=== PATIENT | female | born 1980 | race Hispanic/Latino ===

== ENCOUNTER 2017-01-22 18:40 | Inpatient (IN) | payer MEDICARE, OTHER ==
[2017-01-22 18:50] VITALS: BMI 56.5
[2017-01-22] MEDS: Albuterol-Ipratrop 3 mg / 0.5 (3 ml) UD IH STA ×2 (19:20→19:24)
[2017-01-22] MEDS ORDERED: Levalbuterol 1.25 MG/3 ML Inhal Soln UD IH STA ×3 (19:22→20:58)
[2017-01-22 20:02] LABS: ADD MANUAL DIFF? YES; HEMATOCRIT 34.5 % (36.0-48.0); MEAN CELL VOLUME 76.8 fL (80.0-105.0); MEAN CORPUSCULAR HEMOGLOBIN 23.8 pg (25.0-35.0); MEAN PLATELET VOLUME 10.4 fl (7.0-11.0); PLATELET COUNT 344 10^3/uL (120.0-450.0); RED CELL DISTRIBUTION WIDTH 18.2 % (11.5-14.5); WHITE BLOOD COUNT 10.7 10^3/ul (4.5-11.0)
[2017-01-22 20:17] LABS: ALB/GLOB RATIO 1.2 (1.1-1.8); ALKALINE PHOSPHATASE 60 U/L (38-133); ALT/SGPT 48 U/L (7-56); AST/SGOT 58 U/L (15-39); BILIRUBIN,TOTAL 0.7 mg/dL (0.2-1.3); BLOOD UREA NITROGEN 8 mg/dL (7-21); CALCIUM 8.4 mg/dL (8.4-10.5); CARBON DIOXIDE 25 mmol/L (21-33); CHLORIDE 99 mmol/L (98-107); GFR AFRICAN-AMERICAN > 60; GLUCOSE,RANDOM 197 mg/dL (70-110); POTASSIUM 3.3 mmol/L (3.6-5.0); SODIUM 136 mmol/L (132-148); TOTAL PROTEIN 6.9 g/dL (5.8-8.3)
[2017-01-22 20:31] LABS: TROPONIN I < 0.01 ng/mL
[2017-01-22 20:47] LABS: BAND 4 % (0-2); NEUTROPHIL 56 % (50.0-70.0)
[2017-01-22 20:48] LABS: EOSINOPHIL 8 % (0.0-3.0); PLATELET ESTIMATE NORMAL (NORMAL)
--- NOTE | 2017-01-22 21:34 | ED PDOC ---
Arrival/HPI - General Chief Complaint: Shortness Of Breath Time Seen by Provider: 01/22/17 18:53 Historian: Patient - History of Present Illness Narrative History of Present Illness (Text): 01/22/17 21:27 36yo morbidly obese female with PMHx of COPD, asthma, PE, sleep apnea, myxoma , chronic back pain, BIBA for worsening SOB, cough and one week. Also reports right lower back pain. She is steroid dependent, reports history of hospital admission and intubation secondary to COPD. Denies fever, chills, sick contact, recent travel. Mother states she had chest CT last week at [facility] [place], presented the report that states she had RLL nodule. Past Medical History - Provider Review Nursing Documentation Reviewed: Yes - Infectious Disease Hx of Infectious Diseases: None - Tetanus Immunization Tetanus Immunization: Unknown - Cardiac Hx Cardiac Arrhythmia: Yes Hx Congestive Heart Failure: Yes Hx Pacemaker: No Hx Peripheral Edema: Yes Hx Peripheral Vascular Disease: Yes (DVT) Other/Comment: Infective endocarditis - Pulmonary Hx Asthma: Yes Hx Bronchitis: Yes Hx Chronic Obstructive Pulmonary Disease (COPD): Yes Hx Emphysema: Yes Hx Pneumonia: Yes Hx Respiratory Tract Infection: Yes Hx Sleep Apnea: Yes Other/Comment: Pulmonary embolism - Neurological Hx Dizziness: Yes Hx Migraine: Yes Hx Paralysis: No Hx Vertigo: Yes Other/Comment: Neuropathy - HEENT Hx Cataracts: Yes Hx Deafness: Yes Hx Glaucoma: Yes Other/Comment: parotid gland infection 2 ear sx's, sx for deviated septum - Renal Hx Renal Failure: Yes - Endocrine/Metabolic Hx Hyperthyroidism: Yes Hx Hypothyroidism: Yes Other/Comment: h/o DKA - Hematological/Oncological Hx Anemia: Yes Hx Blood Transfusions: Yes Hx Blood Transfusion Reaction: No Hx Shingles: Yes Other/Comment: 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 - Integumentary Hx Cellulitis: Yes (recurrent) Other/Comment: 2 open sores to abd, 2 open sores right let and 2 to left leg 2 open sores to right upper arm, open sore to upper back, surgical scar to mid lower back and left lower back,7cm x 2cm open surgical wound to left abd draining and packing - Musculoskeletal/Rheumatological Hx Arthritis: Yes Hx Back Pain: Yes Hx Degenerative Joint Disease: Yes Hx Falls: No Hx Osteoarthritis: Yes Hx Osteomyelitis: Yes Hx Osteoporosis: Yes Hx Unsteady Gait: Yes (uses walker and rollator) Other/Comment: h/o implanted spinal cord stimulator -- was taken out due to infection. Restless leg syndrome - Gastrointestinal Hx Gastroesophageal Reflux: Yes Hx Pancreatitis: Yes Other/Comment: Esophageal Motility Disorder. Diabetic Gastroparesis - Genitourinary/Gynecological Hx Incontinence: Yes Hx Reproductive Disorders: No Hx Urinary Tract Infection: Yes Other/Comment: pt report history of yeast infection - Psychiatric Hx Anxiety: Yes Hx Bipolar Disorder: No Hx Emotional Abuse: No Hx Hallucinations: No Hx Panic Disorder: No Hx Post Traumatic Stress Disorder: No Hx Psychosis: No Hx Physical Abuse: No Hx Schizophrenia: No Hx Sexual Abuse: No Hx Substance Use: No - Surgical History Hx Appendectomy: Yes Hx Cataract Extraction: Yes Hx Cholecystectomy: Yes Hx Dilation and Curettage: Yes Hx Eye Surgery: Yes Hx Hysterectomy: Yes Hx Orthopedic Surgery: Yes (arthroscopic) Hx Vascular Access Device: Yes (port placed and removed) - Anesthesia Hx Anesthesia: No Hx Anesthesia Reactions: No Hx Malignant Hyperthermia: No - Suicidal Assessment Feels Threatened In Home Enviroment: No Family/Social History - Physician Review Nursing Documentation Reviewed: Yes Family/Social History: Unknown Family HX Smoking Status: Unknown If Ever Smoked Hx Alcohol Use: No Hx Substance Use: No Hx Substance Use Treatment: No Allergies/Home Meds Allergies/Adverse Reactions: Allergies ketorolac tromethamine [From Toradol] Allergy (Verified 01/22/17 19:19) ANAPHYLAXIS levofloxacin [From Levaquin] Allergy (Verified 06/16/16 17:02) NAUSEA metformin Allergy (Verified 06/16/16 17:02) ANAPHYLAXIS dapagliflozin propanediol [From Farxiga] Adverse Reaction (Verified 06/16/16 17: 02) .high blood sugar Home Medications: Home Meds Medication Instructions Recorded Confirmed diaZEpam [Valium] 5 mg PO TID 05/24/16 01/22/17 Cyanocobalamin [Vitamin B12 1000 0 mcg INJ .WEEKLY 01/22/17 01/22/17 mcg/ml Inj] Cyclobenzaprine [Flexeril] 10 mg PO DAILY 01/22/17 01/22/17 HYDROmorphone [Dilaudid] 4 mg PO Q4 01/22/17 01/22/17 Insulin Aspart [Novolog Flexpen] 5 units SC TID 01/22/17 01/22/17 Insulin Detemir [Levemir] 20 units SC DAILY 01/22/17 01/22/17 Meclizine [Meclizine*] 25 mg PO Q8 PRN 01/22/17 01/22/17 MedroxyPROGESTERone [Provera] 10 mg PO DAILY 01/22/17 01/22/17 Pantoprazole [Protonix EC Tab] 40 mg PO DAILY 01/22/17 01/22/17 diltiaZEM [Cardizem] 60 mg PO Q8 01/22/17 01/22/17 Review of Systems - Physician Review All systems were reviewed & negative as marked: Yes - Review of Systems Constitutional: Normal Eyes: Normal ENT: Normal Respiratory: SOB, Cough. absent: Sputum, Wheezing Cardiovascular: Normal Gastrointestinal: Normal Genitourinary Female: Normal Musculoskeletal: Normal Skin: Normal Neurological: Normal Endocrine: Normal Hemo/Lymphatic: Normal Psychiatric: Normal Physical Exam Vital Signs Reviewed: Yes Vital Signs Temp Pulse Resp BP Pulse Ox 01/23/17 01:13 97.8 F 113 H 18 116/77 96 01/22/17 21:13 93 L 01/22/17 20:41 129 H 16 122/74 91 L 01/22/17 18:56 20 01/22/17 18:49 130 H 20 118/88 100 Temperature: Afebrile Blood Pressure: Normal Pulse: Tachycardic Respiratory Rate: Normal Appearance: Positive for: Well-Appearing, Non-Toxic, Comfortable, Other (In mild respiratory distress) Pain Distress: None Mental Status: Positive for: Alert and Oriented X 3 - Systems Exam Head: Present: Atraumatic, Normocephalic Pupils: Present: PERRL Extroacular Muscles: Present: EOMI Conjunctiva: Present: Normal Mouth: Present: Moist Mucous Membranes Neck: Present: Normal Range of Motion Respiratory/Chest: Present: Respiratory Distress (Mild), Accessory Muscle Use, Decreased Breath Sounds (Diffusely). No: Wheezes, Retracting, Rhonchi, Tachypneic Cardiovascular: Present: Regular Rate and Rhythm, Normal S1, S2. No: Murmurs Abdomen: Present: Normal Bowel Sounds. No: Tenderness, Distention, Peritoneal Signs Back: Present: Normal Inspection Upper Extremity: Present: Normal Inspection. No: Cyanosis, Edema Lower Extremity: Present: Normal Inspection. No: Edema Neurological: Present: GCS=15, CN II-XII Intact, Speech Normal Skin: Present: Warm, Dry, Normal Color. No: Rashes Psychiatric: Present: Alert, Oriented x 3, Normal Insight, Normal Concentration Medical Decision Making ED Course and Treatment: 01/23/17 01:43 Pt with history of multiple co morbidities presented secondary to the stated history. She was tachy on presentation with decreased BS diffusely. On re evaluation s/p medication she remained tachy and continue to complain of SOB. Lab was unremarkable and CXR was negative. EKG Sinus tachy with short TN. No ST changes. Pt will be admitted for COPD exacerbation. Result and plan was DW the pt and she agreed. Case was DW Dr. Barnes. PT was placed on OBS to Dr. Weiss's service. - Lab Interpretations Lab Results: 01/22/17 19:00 01/22/17 19:00 Lab Results 01/22/17 19:00: WBC 10.7, RBC 4.49, Hgb 10.7 L, Hct 34.5 L, MCV 76.8 L, MCH 23.8 L, MCHC 31.0, RDW 18.2 H, Plt Count 344, MPV 10.4, Neutrophils % (Manual) 56, Band Neutrophils % 4 H, Lymphocytes % (Manual) 17 L, Monocytes % (Manual) 15 H, Eosinophils % (Manual) 8 H, Platelet Evaluation Normal, Sodium 136, Potassium 3.3 L, Chloride 99, Carbon Dioxide 25, Anion Gap 15, BUN 8, Creatinine 0.4 L, Est GFR ( Amer) > 60, Est GFR (Non-Af Amer) > 60, Random Glucose 197 H, Calcium 8.4, Total Bilirubin 0.7, AST 58 H, ALT 48, Alkaline Phosphatase 60, Lactate Dehydrogenase 686, Total Creatine Kinase < 20 L , Troponin I < 0.01, NT-Pro-B Natriuret Pep 18.0, Total Protein 6.9, Albumin 3.7 , Globulin 3.2, Albumin/Globulin Ratio 1.2 - RAD Interpretation Radiology Orders: 01/22/17 18:54 CHEST PORTABLE [RAD] Stat - Medication Orders Current Medication Orders: Albuterol/Ipratropium (Duoneb 3 Mg/0.5 Mg (3 Ml) Ud) 3 ml IH [id number] VENESSA Albuterol/Ipratropium (Duoneb 3 Mg/0.5 Mg (3 Ml) Ud) 3 ml IH Q2H PRN PRN Reason: Shortness of Breath Diltiazem HCl (Cardizem) 60 mg PO Q8 VENESSA Duloxetine HCl (Cymbalta) 60 mg PO DAILY VENESSA Gabapentin (Neurontin) 300 mg PO TID VENESSA PRN Reason: Protocol Hydromorphone HCl (Dilaudid) 0.5 mg IVP Q4H PRN PRN Reason: Pain, severe (8-10) Last Admin: 01/23/17 01:22 Dose: 0.5 MG IVP Administration Document 01/23/17 01:22 [facility] (Rec: 01/23/17 01:22 [id number]) Charges for Administration # of IVP Administrations 1 Insulin Human Regular (Humulin R High) 0 units SC ACHS VENESSA PRN Reason: Protocol Levothyroxine Sodium (Synthroid) 25 mcg PO DAILY VENESSA Methylprednisolone (Solu-Medrol) 60 mg IVP Q12 VENESSA Montelukast Sodium (Singulair) 10 mg PO HS VENESSA Pantoprazole Sodium (Protonix Ec Tab) 40 mg PO DAILY VENESSA Rivaroxaban (Xarelto) 20 mg PO DAILY VENESSA PRN Reason: Protocol Roflumilast (Daliresp) 500 mcg PO DAILY VENESSA Ropinirole HCl (Requip) 1.5 mg PO BID VENESSA Valacyclovir HCl (Valtrex) 500 mg PO BID VENESSA PRN Reason: Protocol Discontinued Medications Acetaminophen (Tylenol 325mg Tab) 975 mg PO STAT STA Stop: 01/22/17 22:16 Last Admin: 01/22/17 22:29 Dose: Not Given Non-Admin Reason: Patient Refused Albuterol/Ipratropium (Duoneb 3 Mg/0.5 Mg (3 Ml) Ud) 3 ml IH STAT STA Stop: 01/22/17 18:59 Last Admin: 01/22/17 19:24 Dose: Insulin Human Regular (Humulin R) 8 units SC STAT STA Stop: 01/23/17 01:33 Levalbuterol HCl (Xopenex) 1.25 mg IH STAT STA Stop: 01/22/17 19:23 Last Admin: 01/22/17 19:34 Dose: 1.25 MG Levalbuterol HCl (Xopenex) 1.25 mg IH STAT STA Stop: 01/22/17 20:02 Last Admin: 01/22/17 20:09 Dose: 1.25 MG Levalbuterol HCl (Xopenex) 1.25 mg IH STAT STA Stop: 01/22/17 20:59 Last Admin: 01/22/17 21:14 Dose: 1.25 MG Methylprednisolone (Solu-Medrol) 125 mg IVP STAT STA Stop: 01/22/17 18:56 Last Admin: 01/22/17 19:19 Dose: 125 MG IVP Administration Document 01/22/17 19:19 (Rec: 01/22/17 19:19 [id number]) Charges for Administration # of IVP Administrations 1 Ondansetron HCl (Zofran Inj) 4 mg IVP STAT STA Stop: 01/22/17 22:16 Last Admin: 01/22/17 22:29 Dose: 4 MG IVP Administration Document 01/22/17 22:29 [email or web address] (Rec: 01/22/17 22:29 [email or web address] [id number]) Charges for Administration # of IVP Administrations 1 Potassium Chloride (K-Dur 20 Meq Er Tab) 40 meq PO STAT STA Stop: 01/22/17 23:28 Last Admin: 01/23/17 00:05 Dose: 40 MEQ Disposition/Present on Arrival - Present on Arrival Any Indicators Present on Arrival: No History of DVT/PE: Yes History of Uncontrolled Diabetes: No Urinary Catheter: No History of Decub. Ulcer: No History Surgical Site Infection Following: None - Disposition Have Diagnosis and Disposition been Completed?: Yes Diagnosis: COPD (chronic obstructive pulmonary disease), Obesity Disposition: HOSPITALIZED Disposition Time: 11:40 Patient Problems: Current Active Problems Problem Status Diagnosed Acute infective pharyngitis Acute Atypical syncope Acute Chest pain Acute Clostridium difficile infection Acute Head trauma Acute Shingles Acute Thrush Acute Weakness Acute Acute asthma Chronic COPD (chronic obstructive pulmonary disease) Chronic Gait difficulty Chronic Gastroparesis Chronic Obstructive sleep apnea Chronic DVT (deep venous thrombosis) Chronic Frequent falls Chronic Hypothyroid Chronic Restless leg Chronic Ataxia Resolved Cellulitis of trunk Resolved Leukocytosis Resolved Clostridial infection Ruled-out Condition: FAIR
[2017-01-22] MEDS ORDERED: Potassium Chloride 20 mEq ER Tab PO STA (23:27)
[2017-01-22] MEDS ORDERED: Albuterol-Ipratrop 3 mg / 0.5 (3 ml) UD IH PRN (23:47)
--- NOTE | 2017-01-23 00:09 | CP.PCM.HP ---
<Austin Gilbertwin - Last Filed: 01/23/17 20:24> History of Present Illness - History of Present Illness History of Present Illness: cc: Shortness of breath HPI: Patient is a 36yo female with extensive past medical history that presented to [facility] c/o shortness of breath for the past several weeks. Patient stated that within the last 2 days her shortness of breath has been very bad and her medications have only been minimally helpful. She states that she has been unable to sleep and is on home oxygen (3L). She also reported one episode of nausea/vomiting today as well as non-productive cough. She states that she had recently been to [facility] [place] for similar complaints. Patient denies sick contacts, fever, chills, chest pain, palpitations, abdominal pain, focal weakness, numbness, tingling. PMHx: steroid-dependent asthma, chronic sinusitis, GERD, DM2, gastroparesis, endocarditis, implanted spinal cord stimulator which has since been removed, b/ l cataract surgery, shingles, ARTHUR, bronchiectasis, esophageal motility disorder , osteoporosis, right atrial mass, recurrent cellulitis, DVT and PE s/p IVC filter placement, Jennifer's disease PSHx: IVC filter placement, spinal stimulator insertion and removal, B/l cataract surgery, nasal polypectomy x3, right knee meniscus repair, right tympanic membrane repair Allergies: metformin, levofloxacin, dapagliflozin, ketorolac Social Hx: Former smoker quit ~10yrs ago, denies alcohol and illicit drug use; Lives with her parents Family Hx: Mother: [place]; Father: A[place]m PMD: Dr. Lawson Present on Admission - Present on Admission Any Indicators Present on Admission: Yes History of DVT/PE: Yes Past Patient History - Infectious Disease Hx of Infectious Diseases: None - Tetanus Immunizations Tetanus Immunization: Unknown - Past Medical History & Family History Past Medical History?: Yes - Past Social History Smoking Status: Unknown If Ever Smoked - CARDIAC Hx Cardia Arrhythmia: Yes Hx Congestive Heart Failure: Yes Hx Pacemaker: No Hx Peripheral Edema: Yes Hx Peripheral Vascular Disease: Yes (DVT) Other/Comment: Infective endocarditis - PULMONARY Hx Asthma: Yes Hx Bronchitis: Yes Hx Chronic Obstructive Pulmonary Disease (COPD): Yes Hx Emphysema: Yes Hx Pneumonia: Yes Hx Respiratory Tract Infection: Yes Hx Sleep Apnea: Yes Other/Comment: Pulmonary embolism - NEUROLOGICAL Hx Dizziness: Yes Hx Migraine: Yes Hx Paralysis: No Hx Vertigo: Yes Other/Comment: Neuropathy - HEENT Hx Cataracts: Yes Hx Deafness: Yes Hx Glaucoma: Yes Other/Comment: parotid gland infection 2 ear sx's, sx for deviated septum - RENAL Hx Renal Failure: Yes - ENDOCRINE/METABOLIC Hx Hyperthyroidism: Yes Hx Hypothyroidism: Yes Other/Comment: h/o DKA - HEMATOLOGICAL/ONCOLOGICAL Hx Anemia: Yes Hx Blood Transfusions: Yes Hx Blood Transfusion Reaction: No Hx Shingles: Yes Other/Comment: 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 - INTEGUMENTARY Hx Cellulitis: Yes (recurrent) Other/Comment: 2 open sores to abd, 2 open sores right let and 2 to left leg 2 open sores to right upper arm, open sore to upper back, surgical scar to mid lower back and left lower back,7cm x 2cm open surgical wound to left abd draining and packing - MUSCULOSKELETAL/RHEUMATOLOGICAL Hx Arthritis: Yes Hx Back Pain: Yes Hx Degenerative Joint Disease: Yes Hx Falls: No Hx Osteoarthritis: Yes Hx Osteomyelitis: Yes Hx Osteoporosis: Yes Hx Unsteady Gait: Yes (uses walker and rollator) Other/Comment: h/o implanted spinal cord stimulator -- was taken out due to infection. Restless leg syndrome - GASTROINTESTINAL Hx Gastroesophageal Reflux: Yes Hx Pancreatitis: Yes Other/Comment: Esophageal Motility Disorder. Diabetic Gastroparesis - GENITOURINARY/GYNECOLOGICAL Hx Incontinence: Yes Hx Reproductive Disorders: No Hx Urinary Tract Infection: Yes Other/Comment: pt report history of yeast infection - PSYCHIATRIC Hx Anxiety: Yes Hx Bipolar Disorder: No Hx Emotional Abuse: No Hx Hallucinations: No Hx Panic Symptoms: No Hx Post Traumatic Stress Disorder: No Hx Psychosis: No Hx Physical Abuse: No Hx Schizophrenia: No Hx Sexual Abuse: No Hx Substance Use: No - SURGICAL HISTORY Hx Appendectomy: Yes Hx Cataract Extraction: Yes Hx Cholecystectomy: Yes Hx Dilation and Curettage: Yes Hx Eye Surgery: Yes Hx Hysterectomy: Yes Hx Orthopedic Surgery: Yes (arthroscopic) Hx Vascular Access Device: Yes (port placed and removed) - ANESTHESIA Hx Anesthesia: No Hx Anesthesia Reactions: No Hx Malignant Hyperthermia: No Meds Allergies/Adverse Reactions: Allergies Allergy/AdvReac Type Severity Reaction Status Date / Time ketorolac tromethamine Allergy ANAPHYLAXIS Verified 01/22/17 19:19 [From Toradol] levofloxacin [From Levaquin] Allergy NAUSEA Verified 06/16/16 17:02 metformin Allergy ANAPHYLAXIS Verified 06/16/16 17:02 dapagliflozin propanediol AdvReac .high Verified 06/16/16 17:02 [From Farxiga] blood sugar Physical Exam - Constitutional Appears: Non-toxic, No Acute Distress - Head Exam Head Exam: ATRAUMATIC, NORMAL INSPECTION, NORMOCEPHALIC - Eye Exam Eye Exam: EOMI, PERRL - ENT Exam ENT Exam: Mucous Membranes Moist - Neck Exam Neck exam: Positive for: Normal Inspection. Negative for: Lymphadenopathy, Tenderness, Thyromegaly - Respiratory Exam Respiratory Exam: Decreased Breath Sounds, NORMAL BREATHING PATTERN. absent: Accessory Muscle Use, Rales, Rhonchi, Wheezes - Cardiovascular Exam Cardiovascular Exam: RRR, +S1, +S2. absent: Diastolic murmur, Gallop, Rubs - GI/Abdominal Exam GI & Abdominal Exam: Soft. absent: Firm, Guarding, Rebound, Rigid, Tenderness - Extremities Exam Extremities exam: Negative for: pedal edema, tenderness Additional comments: onychomycosis - Back Exam Additional comments: buffalo hump surgical scars - Neurological Exam Neurological exam: Alert, CN II-XII Intact, Oriented x3 - Psychiatric Exam Psychiatric exam: Normal Affect, Normal Mood - Skin Skin Exam: Dry, Intact, Normal Color, Warm Results - Vital Signs Recent Vital Signs: Last Vital Signs Temp Pulse 129 H 01/22/17 20:41 Resp 16 01/22/17 20:41 BP 122/74 01/22/17 20:41 Pulse Ox 93 L 01/22/17 21:13 - Labs Result Diagrams: 01/22/17 19:00 01/22/17 19:00 Labs: Laboratory Results - last 24 hr 01/22/17 19:00 WBC 10.7 RBC 4.49 Hgb 10.7 L Hct 34.5 L MCV 76.8 L MCH 23.8 L MCHC 31.0 RDW 18.2 H Plt Count 344 MPV 10.4 Neutrophils % (Manual) 56 Band Neutrophils % 4 H Lymphocytes % (Manual) 17 L Monocytes % (Manual) 15 H Eosinophils % (Manual) 8 H Platelet Evaluation Normal Sodium 136 Potassium 3.3 L Chloride 99 Carbon Dioxide 25 Anion Gap 15 BUN 8 Creatinine 0.4 L Est GFR ( Amer) > 60 Est GFR (Non-Af Amer) > 60 Random Glucose 197 H Calcium 8.4 Total Bilirubin 0.7 AST 58 H ALT 48 Alkaline Phosphatase 60 Lactate Dehydrogenase 686 Total Creatine Kinase < 20 L Troponin I < 0.01 NT-Pro-B Natriuret Pep 18.0 Total Protein 6.9 Albumin 3.7 Globulin 3.2 Albumin/Globulin Ratio 1.2 Assessment & Plan - Assessment and Plan (Free Text) Assessment: 36yo female with extensive past medical history and multiple hospitalizations presents c/o shortness of breath x 2 days likely secondary to COPD exacerbation. Plan: 1. Shortness of breath likely 2/2 COPD Exacerbation -Duonebs q4h vicki -Duonebs q2h prn -Solumedrol 60 mg IV q12h -Supplemental O2 as needed -Continue singulair and daliresp 2. Hx of endocarditis/right atrial mass -Patient previously on daptomycin -ID consulted - Dr. Vera 3. History of DVT/PE -Continue Xarelto 20 mg po qd Cardizem 30 mg po tid for rate control 4. Diabetes Mellitus type 2 -Humulin high dose ISS -Fingersticks ACHS -low consistent carb diet 5. Hypothyroidism -Continue Synthroid 25 mcg po qd 6. Hx of Shingles -Continue Valacyclovir 500 mg po bid 7. Restless Leg Syndrome -Continue Ropinirole 1.5 mg po bid 8. GI/DVT Prophylaxis -Protonix/Xarelto Patient seen and case discussed with attending, Dr. Barnes - Date & Time Date: 01/23/17 Time: 00:20 <Stewart Barnes - Last Filed: 01/24/17 02:30> Results - Vital Signs Recent Vital Signs: Last Vital Signs Temp 97.7 F 01/23/17 16:00 Pulse 120 H 01/23/17 16:00 Resp 18 01/23/17 16:00 BP 140/70 01/23/17 22:15 Pulse Ox 96 01/23/17 16:00 - Labs Result Diagrams: 01/23/17 05:00 01/23/17 05:00 Labs: Laboratory Results - last 24 hr 01/23/17 01/23/17 01/23/17 01:12 05:00 07:07 WBC 14.4 H D RBC 4.66 Hgb 10.9 L Hct 35.8 L MCV 76.8 L MCH 23.4 L MCHC 30.4 L RDW 18.1 H Plt Count 339 MPV 10.1 Gran % 91.8 H Lymph % (Auto) 4.5 L Rich % (Auto) 3.3 Eos % (Auto) 0.1 L Baso % (Auto) 0.3 Gran # 13.20 H Lymph # 0.7 L Rich # 0.5 Eos # 0.0 Baso # 0.05 Sodium 133 Potassium 4.6 Chloride 100 Carbon Dioxide 20 L Anion Gap 18 BUN 13 Creatinine 0.5 Est GFR ( Amer) > 60 Est GFR (Non-Af Amer) > 60 POC Glucose (mg/dL) 392 H 354 H Random Glucose 328 H* D Calcium 9.3 Total Bilirubin 0.6 AST 47 H ALT 63 H Alkaline Phosphatase 66 Total Protein 7.2 Albumin 3.9 Globulin 3.3 Albumin/Globulin Ratio 1.2 01/23/17 01/23/17 01/23/17 11:29 15:51 15:59 WBC RBC Hgb Hct MCV MCH MCHC RDW Plt Count MPV Gran % Lymph % (Auto) Rich % (Auto) Eos % (Auto) Baso % (Auto) Gran # Lymph # Rich # Eos # Baso # Sodium Potassium Chloride Carbon Dioxide Anion Gap BUN Creatinine Est GFR ( Amer) Est GFR (Non-Af Amer) POC Glucose (mg/dL) 390 H 394 H 210 H Random Glucose Calcium Total Bilirubin AST ALT Alkaline Phosphatase Total Protein Albumin Globulin Albumin/Globulin Ratio 01/23/17 21:07 WBC RBC Hgb Hct MCV MCH MCHC RDW Plt Count MPV Gran % Lymph % (Auto) Rich % (Auto) Eos % (Auto) Baso % (Auto) Gran # Lymph # Rich # Eos # Baso # Sodium Potassium Chloride Carbon Dioxide Anion Gap BUN Creatinine Est GFR ( Amer) Est GFR (Non-Af Amer) POC Glucose (mg/dL) 322 H Random Glucose Calcium Total Bilirubin AST ALT Alkaline Phosphatase Total Protein Albumin Globulin Albumin/Globulin Ratio Attending/Attestation - Attestation I have personally seen and examined this patient.: Yes I have fully participated in the care of the patient.: Yes I have reviewed all pertinent clinical information: Yes Notes (Text): 01/24/17 02:29 Patient was seen when she was in the ER . Agree with history, physical examination , assessment and plan.
[2017-01-23 00:26] LABS: URINE BILIRUBIN NEGATIVE (NEGATIVE); URINE BLOOD TRACE-INTACT (NEGATIVE); URINE GLUCOSE (UA) 500 mg/dL (NEGATIVE); URINE KETONE NEGATIVE (NEGATIVE); URINE LEUKOCYTE ESTERASE NEGATIVE Leu/uL (NEGATIVE); URINE PROTEIN 100 mg/dL (<30 mg/dL); URINE UROBILINOGEN 0.2 E.U./dL (<1 E.U./dL)
[2017-01-23 00:38] LABS: URINE APPEARANCE SLIGHT-CLOUDY (CLEAR); URINE COLOR YELLOW (YELLOW)
[2017-01-23 00:46] LABS: URINE BACTERIA FEW (NEG); URINE EPITHELIAL CELLS 0 - 2 /hpf (0-5)
[2017-01-23] MEDS: HYDROmorphone 0.5 mg/0.5 ml ISec IVP PRN ×4 (01:22→14:30)
[2017-01-23] MEDS ORDERED: Insulin Regular 1 UNITS/0.01 ML ML SC STA (01:32)
[2017-01-23] MEDS: Albuterol-Ipratrop 3 mg / 0.5 (3 ml) UD IH SCH ×5 (03:47→20:58)
--- NOTE | 2017-01-23 07:50 | RAD ---
HISTORY: SOB COMPARISON: Chest x-ray performed 11/22/16 TECHNIQUE: Chest, one view. FINDINGS: The patient's chin obscures evaluation of the lung apices. Interval removal of right-sided PICC. LUNGS: No focal consolidation. Please note that chest x-ray has limited sensitivity for the detection of pulmonary masses. PLEURA: No significant pleural effusion identified. No definite pneumothorax . CARDIOVASCULAR: The cardiomediastinal silhouette appears within normal limits of size. OSSEOUS STRUCTURES: No acute osseous abnormality identified. VISUALIZED UPPER ABDOMEN: Unremarkable. OTHER FINDINGS: None. IMPRESSION: No focal consolidation, significant pleural effusion, or definite pneumothorax identified.
[2017-01-23 08:17] LABS: ADD MANUAL DIFF? NO; BASO # 0.05 K/mm3 (0.0-2.0); BASO % 0.3 % (0.0-3.0); EOS % 0.1 % (1.5-5.0); GRAN % 91.8 % (50.0-68.0); HEMATOCRIT 35.8 % (36.0-48.0); LYMPH # 0.7 (1.2-3.4); LYMPH % 4.5 % (22.0-35.0); MEAN CELL VOLUME 76.8 fL (80.0-105.0); MEAN CORPUSCULAR HEMOGLOBIN 23.4 pg (25.0-35.0); MEAN CORPUSCULAR HGB CONC 30.4 g/dl (31.0-37.0); MEAN PLATELET VOLUME 10.1 fl (7.0-11.0); MONO # 0.5 (0.1-0.6); MONO % 3.3 % (1.0-6.0); PLATELET COUNT 339 10^3/uL (120.0-450.0); RED CELL DISTRIBUTION WIDTH 18.1 % (11.5-14.5); WHITE BLOOD COUNT 14.4 10^3/ul (4.5-11.0)
[2017-01-23] MEDS: Insulin Reg-HIGH-Coverage SC SCH ×4 (08:28→23:49)
[2017-01-23 08:36] LABS: ALB/GLOB RATIO 1.2 (1.1-1.8); ALKALINE PHOSPHATASE 66 U/L (38-133); ALT/SGPT 63 U/L (7-56); AST/SGOT 47 U/L (15-39); BILIRUBIN,TOTAL 0.6 mg/dL (0.2-1.3); BLOOD UREA NITROGEN 13 mg/dL (7-21); CALCIUM 9.3 mg/dL (8.4-10.5); CARBON DIOXIDE 20 mmol/L (21-33); CHLORIDE 100 mmol/L (98-107); GFR AFRICAN-AMERICAN > 60; POTASSIUM 4.6 mmol/L (3.6-5.0); SODIUM 133 mmol/L (132-148); TOTAL PROTEIN 7.2 g/dL (5.8-8.3)
[2017-01-23 08:40] LABS: GLUCOSE,RANDOM 328 mg/dL (70-110)
[2017-01-23] MEDS: Levothyroxine 25 MCG TAB PO SCH (10:10)
[2017-01-23] MEDS: Pantoprazole 40 mg EC Tab PO SCH (10:10)
[2017-01-23] MEDS ORDERED: Insulin Detemir 100 units/ml Vial (Levemir) SC SCH ×3 (13:30→14:35)
[2017-01-23] MEDS: HYDROmorphone 1 mg/ml ISec IVP PRN ×2 (16:50→22:16)
--- NOTE | 2017-01-23 16:50 | CARD ---
APPROVED REPORT EKG Measurement Heart [id number] 104P [id number] <Conclusion> Sinus tachycardia with short VA Low voltage QRS Cannot rule out Anteroseptal infarct, age undetermined Abnormal ECG
--- NOTE | 2017-01-23 17:28 | CP.PCM.CON ---
History of Present Illness - History of Present Illness History of Present Illness: Infectious Disease Consultation: January 23, 2017 36 yo female with multiple hospitalizations to both [facility] [place] [facility] [place] over the past few years who presents with worsening shortness of breath and cough for one week. Recent Chest CT done at [facility] [place]. Her home medications have not improved her situation. Patient mother states that the CT Chest at [facility] showed a RLL nodule. PMHx: Esophageal dysmotility, hypertension, diabetes mellitus, obstructive sleep apnea , chronic sinusitis, restless leg syndrome, chronic pain syndrome, persistent skin ulceration with infection, morbid obesity, steroid dependent respiratory disease, COPD, degenerative joint disease, chronic back pain, hypothyroidism, DVT, history of pulmonary embolism, chronic fatigue. Has memory lapses since last hospitalization. PSHx: IVC filter placement, multiple PICC lines, prior port placement and then renewal , spinal stimulator placement 16 months ago removed over 4 months ago due to infection, tonsillectomy, nasal polypectomy, right ear surgery. Allergies: Levaquin, morphine, metformin Social History: No tobacco, EtOH, or illicit drug use. Lives with parents. Active Medications Albuterol/Ipratropium (Duoneb 3 Mg/0.5 Mg (3 Ml) Ud) 3 ml IH [id number] [facility] Last Admin: 01/23/17 14:30 Dose: 3 ml Albuterol/Ipratropium (Duoneb 3 Mg/0.5 Mg (3 Ml) Ud) 3 ml IH Q2H PRN PRN Reason: Shortness of Breath Diazepam (Valium) 5 mg PO TID [facility] PRN Reason: Protocol Diltiazem HCl (Cardizem) 30 mg PO Q8 [facility] Duloxetine HCl (Cymbalta) 60 mg PO DAILY [facility] Last Admin: 01/23/17 10:10 Dose: 60 mg Gabapentin (Neurontin) 300 mg PO TID [facility] PRN Reason: Protocol Last Admin: 01/23/17 14:22 Dose: 300 mg Hydromorphone HCl (Dilaudid) 1 mg IVP Q4H PRN PRN Reason: Pain, moderate (4-7) Insulin Detemir (Levemir) 20 unit SC DAILY [facility] Insulin Human Regular (Humulin R High) 0 units SC ACHS [facility] PRN Reason: Protocol Last Admin: 01/23/17 12:33 Dose: 12 units Levothyroxine Sodium (Synthroid) 25 mcg PO DAILY [facility] Last Admin: 01/23/17 10:10 Dose: 25 mcg Meclizine HCl (Antivert) 25 mg PO Q8 PRN PRN Reason: Dizziness Medroxyprogesterone Acetate (Provera) 10 mg PO DAILY [facility] Methylprednisolone (Solu-Medrol) 60 mg IVP Q12 [facility] Last Admin: 01/23/17 10:08 Dose: 60 mg Montelukast Sodium (Singulair) 10 mg PO HS [facility] Pantoprazole Sodium (Protonix Ec Tab) 40 mg PO DAILY [facility] Last Admin: 01/23/17 10:10 Dose: 40 mg Rivaroxaban (Xarelto) 20 mg PO DAILY [facility] PRN Reason: Protocol Last Admin: 01/23/17 10:10 Dose: 20 mg Roflumilast (Daliresp) 500 mcg PO DAILY [facility] Last Admin: 01/23/17 10:10 Dose: 500 mcg Ropinirole HCl (Requip) 1.5 mg PO BID [facility] Last Admin: 01/23/17 10:11 Dose: 1.5 mg Valacyclovir HCl (Valtrex) 500 mg PO BID [facility] PRN Reason: Protocol Last Admin: 01/23/17 10:10 Dose: 500 mg Family History: Atrial fibrillation in mother. Hypertension in mother. Aneurysm history in family ROS: Chest pain and generalized sharp pains. No diarrhea. No headaches. No dizziness. No vomiting. No melena, hematuria, hematemesis, or hematochezia. No fevers or chills. No depression or anxiety. Past Patient History - Infectious Disease Hx of Infectious Diseases: None - Tetanus Immunizations Tetanus Immunization: Unknown - Past Medical History & Family History Past Medical History?: Yes - Past Social History Smoking Status: Former Smoker - CARDIAC Hx Cardiac Disorders: Yes Hx Cardia Arrhythmia: Yes Hx Congestive Heart Failure: Yes Hx Hypercholesterolemia: Yes Hx Hypertension: Yes Hx Peripheral Edema: Yes Hx Peripheral Vascular Disease: Yes (dvt) - PULMONARY Hx Respiratory Disorders: Yes Hx Asthma: Yes Hx Bronchitis: Yes Hx Chronic Obstructive Pulmonary Disease (COPD): Yes Hx Emphysema: Yes Hx Pneumonia: Yes Hx Sleep Apnea: Yes - NEUROLOGICAL Hx Neurological Disorder: Yes Hx Dizziness: Yes Hx Migraine: Yes - HEENT Hx HEENT Problems: Yes Hx Cataracts: Yes Hx Deafness: Yes Hx Glaucoma: Yes - RENAL Hx Chronic Kidney Disease: Yes Hx Renal Failure: Yes - ENDOCRINE/METABOLIC Hx Endocrine Disorders: Yes Hx Diabetes Mellitus Type 1: Yes Hx Diabetes Mellitus Type 2: Yes Hx Hyperthyroidism: Yes Hx Hypothyroidism: Yes - HEMATOLOGICAL/ONCOLOGICAL Hx Blood Disorders: Yes Hx Anemia: Yes Hx Shingles: Yes - INTEGUMENTARY Hx Dermatological Problems: No - MUSCULOSKELETAL/RHEUMATOLOGICAL Hx Musculoskeletal Disorders: Yes Hx Arthritis: Yes Hx Back Pain: Yes Hx Degenerative Joint Disease: Yes Hx Falls: No Hx Osteoarthritis: Yes Hx Osteoporosis: Yes Hx Unsteady Gait: Yes - GASTROINTESTINAL Hx Gastrointestinal Disorders: Yes Hx Pancreatitis: Yes - GENITOURINARY/GYNECOLOGICAL Hx Genitourinary Disorders: Yes Hx Urinary Tract Infection: Yes - PSYCHIATRIC Hx Psychophysiologic Disorder: Yes Hx Anxiety: Yes Hx Depression: Yes - SURGICAL HISTORY Hx Surgeries: Yes Hx Appendectomy: Yes Hx Cholecystectomy: Yes Other/Comment: back surgery - ANESTHESIA Hx Anesthesia: No Hx Anesthesia Reactions: No Hx Malignant Hyperthermia: No Meds Allergies/Adverse Reactions: Allergies Allergy/AdvReac Type Severity Reaction Status Date / Time ketorolac tromethamine Allergy ANAPHYLAXIS Verified 01/22/17 19:19 [From Toradol] levofloxacin [From Levaquin] Allergy NAUSEA Verified 06/16/16 17:02 metformin Allergy ANAPHYLAXIS Verified 06/16/16 17:02 dapagliflozin propanediol AdvReac .high Verified 06/16/16 17:02 [From Farxiga] blood sugar - Medications Medications: Current Medications Albuterol/Ipratropium (Duoneb 3 Mg/0.5 Mg (3 Ml) Ud) 3 ml IH [id number] [facility] Last Admin: 01/23/17 14:30 Dose: 3 ml Albuterol/Ipratropium (Duoneb 3 Mg/0.5 Mg (3 Ml) Ud) 3 ml IH Q2H PRN PRN Reason: Shortness of Breath Diazepam (Valium) 5 mg PO TID [facility] PRN Reason: Protocol Diltiazem HCl (Cardizem) 30 mg PO Q8 [facility] Duloxetine HCl (Cymbalta) 60 mg PO DAILY [facility] Last Admin: 01/23/17 10:10 Dose: 60 mg Gabapentin (Neurontin) 300 mg PO TID [facility] PRN Reason: Protocol Last Admin: 01/23/17 14:22 Dose: 300 mg Hydromorphone HCl (Dilaudid) 1 mg IVP Q4H PRN PRN Reason: Pain, moderate (4-7) Insulin Detemir (Levemir) 20 unit SC DAILY [facility] Insulin Human Regular (Humulin R High) 0 units SC ACHS [facility] PRN Reason: Protocol Last Admin: 01/23/17 12:33 Dose: 12 units Levothyroxine Sodium (Synthroid) 25 mcg PO DAILY [facility] Last Admin: 01/23/17 10:10 Dose: 25 mcg Meclizine HCl (Antivert) 25 mg PO Q8 PRN PRN Reason: Dizziness Medroxyprogesterone Acetate (Provera) 10 mg PO DAILY [facility] Methylprednisolone (Solu-Medrol) 60 mg IVP Q12 [facility] Last Admin: 01/23/17 10:08 Dose: 60 mg Montelukast Sodium (Singulair) 10 mg PO HS [facility] Pantoprazole Sodium (Protonix Ec Tab) 40 mg PO DAILY [facility] Last Admin: 01/23/17 10:10 Dose: 40 mg Rivaroxaban (Xarelto) 20 mg PO DAILY [facility] PRN Reason: Protocol Last Admin: 01/23/17 10:10 Dose: 20 mg Roflumilast (Daliresp) 500 mcg PO DAILY [facility] Last Admin: 01/23/17 10:10 Dose: 500 mcg Ropinirole HCl (Requip) 1.5 mg PO BID [facility] Last Admin: 01/23/17 10:11 Dose: 1.5 mg Valacyclovir HCl (Valtrex) 500 mg PO BID [facility] PRN Reason: Protocol Last Admin: 01/23/17 10:10 Dose: 500 mg Physical Exam - Constitutional Appears: Non-toxic, No Acute Distress, Chronically Ill - Head Exam Head Exam: ATRAUMATIC, NORMOCEPHALIC - Eye Exam Eye Exam: EOMI, PERRL Pupil Exam: NORMAL ACCOMODATION, PERRL - ENT Exam ENT Exam: Mucous Membranes Moist, Normal External Ear Exam, TM's Normal Bilaterally - Neck Exam Neck exam: Positive for: Full Rom, Normal Inspection - Respiratory Exam Respiratory Exam: Decreased Breath Sounds, NORMAL BREATHING PATTERN. absent: Rales, Rhonchi, Wheezes - Cardiovascular Exam Cardiovascular Exam: REGULAR RHYTHM, RRR, +S1, +S2 - GI/Abdominal Exam GI & Abdominal Exam: Normal Bowel Sounds, Soft. absent: Distended, Tenderness - Extremities Exam Additional comments: multiple scabs on arms and legs. - Back Exam Additional comments: buffalo hump - Neurological Exam Neurological exam: Alert, CN II-XII Intact, Oriented x3 - Psychiatric Exam Psychiatric exam: Normal Affect, Normal Mood - Skin Skin Exam: Intact, Normal Color Results - Vital Signs Recent Vital Signs: Last Vital Signs Temp 98 F 01/23/17 08:00 Pulse 110 H 01/23/17 08:00 Resp 18 01/23/17 08:00 BP 166/80 H 01/23/17 14:23 Pulse Ox 96 01/23/17 08:00 - Labs Result Diagrams: 01/23/17 05:00 01/23/17 05:00 Labs: Laboratory Results - last 24 hr 01/23/17 01/23/17 01/23/17 00:00 01:12 05:00 WBC 14.4 H D RBC 4.66 Hgb 10.9 L Hct 35.8 L MCV 76.8 L MCH 23.4 L MCHC 30.4 L RDW 18.1 H Plt Count 339 MPV 10.1 Gran % 91.8 H Lymph % (Auto) 4.5 L Mcculloch % (Auto) 3.3 Eos % (Auto) 0.1 L Baso % (Auto) 0.3 Gran # 13.20 H Lymph # 0.7 L [place]och # 0.5 Eos # 0.0 Baso # 0.05 Sodium 133 Potassium 4.6 Chloride 100 Carbon Dioxide 20 L Anion Gap 18 BUN 13 Creatinine 0.5 Est GFR ( Amer) > 60 Est GFR (Non-Af Amer) > 60 POC Glucose (mg/dL) 392 H Random Glucose 328 H* D Calcium 9.3 Total Bilirubin 0.6 AST 47 H ALT 63 H Alkaline Phosphatase 66 Total Protein 7.2 Albumin 3.9 Globulin 3.3 Albumin/Globulin Ratio 1.2 Urine Color Yellow Urine Appearance Slight-cloudy Urine pH 6.0 Ur Specific [place] >= 1.030 Urine Protein 100 H Urine Glucose (UA) 500 H Urine Ketones Negative Urine Blood Trace-intact H Urine Nitrate Negative Urine Bilirubin Negative Urine Urobilinogen 0.2 Ur Leukocyte Esterase Negative Urine RBC 2 - 5 Urine WBC 2 - 5 Ur Epithelial Cells 0 - 2 Urine Bacteria Few Urine Other Uyeast 01/23/17 01/23/17 01/23/17 07:07 11:29 15:51 WBC RBC Hgb Hct MCV MCH MCHC RDW Plt Count MPV Gran % Lymph % (Auto) M[place]ulloch % (Auto) Eos % (Auto) Baso % (Auto) Gran # Lymph # [place] # Eos # Baso # Sodium Potassium Chloride Carbon Dioxide Anion Gap BUN Creatinine Est GFR ( Amer) Est GFR (Non-Af Amer) POC Glucose (mg/dL) 354 H 390 H 394 H Random Glucose Calcium Total Bilirubin AST ALT Alkaline Phosphatase Total Protein Albumin Globulin Albumin/Globulin Ratio Urine Color Urine Appearance Urine pH Ur Specific [place] Urine Protein Urine Glucose (UA) Urine Ketones Urine Blood Urine Nitrate Urine Bilirubin Urine Urobilinogen Ur Leukocyte Esterase Urine RBC Urine WBC Ur Epithelial Cells Urine Bacteria Urine Other 01/23/17 15:59 WBC RBC Hgb Hct MCV MCH MCHC RDW Plt Count MPV Gran % Lymph % (Auto) [place] % (Auto) Eos % (Auto) Baso % (Auto) Gran # Lymph # [place] # Eos # Baso # Sodium Potassium Chloride Carbon Dioxide Anion Gap BUN Creatinine Est GFR ( Amer) Est GFR (Non-Af Amer) POC Glucose (mg/dL) 210 H Random Glucose Calcium Total Bilirubin AST ALT Alkaline Phosphatase Total Protein Albumin Globulin Albumin/Globulin Ratio Urine Color Urine Appearance Urine pH Ur Specific [place] Urine Protein Urine Glucose (UA) Urine Ketones Urine Blood Urine Nitrate Urine Bilirubin Urine Urobilinogen Ur Leukocyte Esterase Urine RBC Urine WBC Ur Epithelial Cells Urine Bacteria Urine Other Assessment & Plan - Assessment and Plan (Free Text) Assessment: 36 yo female brought in for worsening cough and shortness of breath. Currently on Levaquin for antibiotic coverage. The patient's chest X-ray is not showing any specific lung findings. There is a mild leukocytosis. Patient does have multiple medical issues including Morbid Obesity, Diabetes Mellitus, poor skin condition, COPD and Emphysema history. Patient had completed a course of Daptomycin for endocarditis two weeks ago that spanned almost 10 weeks of therapy. Also recently finished antifungal medication around the same time. Patient continues to have numbness of the toes with constant injuries to the them especially the right foot. Supportive care. Spoke with Dr. Hernandez. Thank you for allowing me to participate in the care of the patient, we will follow with you.
[2017-01-24] MEDS: HYDROmorphone 1 mg/ml ISec IVP PRN ×5 (02:54→20:49)
[2017-01-24] MEDS: Albuterol-Ipratrop 3 mg / 0.5 (3 ml) UD IH SCH ×6 (04:25→20:17)
[2017-01-24] MEDS: Insulin Reg-HIGH-Coverage SC SCH ×4 (08:30→22:50)
[2017-01-24 08:44] LABS: ADD MANUAL DIFF? NO
[2017-01-24 08:47] LABS: BASO # 0.04 K/mm3 (0.0-2.0); BASO % 0.3 % (0.0-3.0); GRAN # 13.26 (1.4-6.5); GRAN % 91.9 % (50.0-68.0); HEMATOCRIT 35.4 % (36.0-48.0); LYMPH # 0.4 (1.2-3.4); LYMPH % 2.8 % (22.0-35.0); MEAN CORPUSCULAR HEMOGLOBIN 23.3 pg (25.0-35.0); MEAN CORPUSCULAR HGB CONC 29.9 g/dl (31.0-37.0); MEAN PLATELET VOLUME 9.4 fl (7.0-11.0); MONO # 0.7 (0.1-0.6); PLATELET COUNT 287 10^3/uL (120.0-450.0); RED CELL DISTRIBUTION WIDTH 18.4 % (11.5-14.5); WHITE BLOOD COUNT 14.4 10^3/ul (4.5-11.0)
[2017-01-24 08:55] LABS: ALB/GLOB RATIO 1.3 (1.1-1.8); ALKALINE PHOSPHATASE 67 U/L (38-133); ALT/SGPT 58 U/L (7-56); AST/SGOT 31 U/L (15-39); BILIRUBIN,TOTAL 0.7 mg/dL (0.2-1.3); BLOOD UREA NITROGEN 21 mg/dL (7-21); CALCIUM 9.2 mg/dL (8.4-10.5); CARBON DIOXIDE 19 mmol/L (21-33); CHLORIDE 100 mmol/L (95-110); GFR AFRICAN-AMERICAN > 60; POTASSIUM 5.1 mmol/L (3.6-5.0); SODIUM 136 mmol/L (132-148); TOTAL PROTEIN 7.3 g/dL (5.8-8.3)
[2017-01-24 09:05] LABS: GLUCOSE,RANDOM 535 mg/dL (70-110)
[2017-01-24] MEDS: Pantoprazole 40 mg EC Tab PO SCH (09:40)
[2017-01-24] MEDS: Levothyroxine 25 MCG TAB PO SCH (09:41)
[2017-01-24] MEDS: Insulin Detemir 100 units/ml Vial (Levemir) SC SCH ×2 (09:41→17:27)
[2017-01-24] MEDS: guaiFENesin 100 mg/5 ml Syrup UD PO PRN ×2 (09:45→14:03)
[2017-01-24] MEDS: MethylPREDNISolone 40 mg Vial IVP SCH ×2 (09:45→22:51)
--- NOTE | 2017-01-24 13:07 | CON ---
DATE: 01/24/2017 HISTORY OF PRESENT ILLNESS: A 36-year-old morbidly obese female seen at bedside for consultation, ev aluation and management of bilateral digital diabetic ulcerations. The patient states she has profou nd neuropathy in both feet and bangs her feet frequently, resulting in wounds that she does not know she has until she sees blood on the floor. She states that her mother has been changing the dressing s on her feet for the past several days. 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 PAST SURGICAL HISTORY: Includes spinal stimulator placement, tonsillectomy, IVC filter placement and right ear surgery. ALLERGIES: THE PATIENT IS ALLERGIC TO LEVAQUIN, MORPHINE, AND METFORMIN. SOCIAL HISTORY: The patient lives with her parents and does not use tobacco products, does not drink alcohol and denies illicit drug use. CURRENT MEDICATIONS: All medications are noted in MAR. FAMILY HISTORY: Includes hypertension and atrial fibrillation. VITAL SIGNS: Reveal a temperature of 98, pulse rate of 108, blood pressure of 123/66, respiratory ra te of 20. LABORATORY FINDINGS: Reveal a white count of 14.4, hemoglobin of 10.6, hematocrit of 35.4, platelet count of 287. OBJECTIVE: Weakly palpable pedal pulses noted bilaterally. The patient is unable to detect 5.07 gra m monofilament wire testing bilaterally. There is noted to be +1 nonpitting lower extremity edema. Capillary filling time is slightly delayed x 10. There is noted to be full thickness ulcerations sub ungual at the left and right great toes. There is absence of nail plates secondary to trauma. The b ases of the ulcerations are primarily granular with minimal serous drainage. The wounds do not probe to tendon or bone. There are no signs of abscess formation or ascending cellulitis. There is also an absence of nail plates on the right fourth and left third digits which present with granular ulcer ation bases. The wounds do not probe to tendon or bone and there is no purulence. ASSESSMENT: Diabetic ulcerations secondary to trauma on both feet. PLAN: The patient's wounds were cleansed with normal sterile saline and application of Bactroban and a dry sterile dressing was applied to each toe. We will continue to dress the wound daily. The pat rolando stated that she is being discharged tonight or tomorrow. I gave her the address, and phone numb er of our office and she is to follow up at the wound center or in the office. Dakota Cordova DPM cc: [id number] TT: 01/24/2017 13:07:17 Confirmation # [id number] Dictation # [id number] tn
--- NOTE | 2017-01-24 16:30 | CP.PCM.PN ---
Subjective - Date & Time of Evaluation Date of Evaluation: 01/24/17 Time of Evaluation: 16:00 - Subjective Subjective: Infectious Disease Follow Up: January 24, 2017 36 yo female with multiple hospitalizations to both [facility] [place] and [facility] [place] over the past few years who presents with worsening shortness of breath and cough for one week. Recent Chest CT done at [facility]. Her home medications have not improved her situation. Patient mother states that the CT Chest at [facility] showed a RLL nodule. Currently on nasal cannula. No major complaints. Objective - Vital Signs/Intake and Output Vital Signs (last 24 hours): Temp Pulse Resp BP Pulse Ox 97.9 F 120 H 20 109/62 93 L 01/24/17 16:18 01/24/17 16:18 01/24/17 16:18 01/24/17 16:18 01/24/17 16:18 Intake and Output: 01/24/17 01/24/17 06:59 18:59 Intake Total 2200 Balance 2200 - Medications Medications: Current Medications Albuterol/Ipratropium (Duoneb 3 Mg/0.5 Mg (3 Ml) Ud) 3 ml IH [id number] [facility] Last Admin: 01/24/17 15:53 Dose: 3 ml Albuterol/Ipratropium (Duoneb 3 Mg/0.5 Mg (3 Ml) Ud) 3 ml IH Q2H PRN PRN Reason: Shortness of Breath Diazepam (Valium) 5 mg PO TID [facility] PRN Reason: Protocol Last Admin: 01/24/17 13:58 Dose: 5 mg Diltiazem HCl (Cardizem) 30 mg PO Q8 [facility] Last Admin: 01/24/17 13:59 Dose: 30 mg Duloxetine HCl (Cymbalta) 60 mg PO DAILY [facility] Last Admin: 01/24/17 09:39 Dose: 60 mg Gabapentin (Neurontin) 300 mg PO TID [facility] PRN Reason: Protocol Last Admin: 01/24/17 13:59 Dose: 300 mg Guaifenesin (Robitussin) 100 mg PO Q4H PRN PRN Reason: Cough Last Admin: 01/24/17 14:03 Dose: 100 mg Hydromorphone HCl (Dilaudid) 1 mg IVP Q4H PRN PRN Reason: Pain, moderate (4-7) Last Admin: 01/24/17 11:46 Dose: 1 mg Insulin Detemir (Levemir) 20 unit SC BID [facility] Last Admin: 01/24/17 09:41 Dose: 20 unit Insulin Human Regular (Humulin R High) 0 units SC ACHS [facility] PRN Reason: Protocol Last Admin: 01/24/17 12:30 Dose: 15 units Levothyroxine Sodium (Synthroid) 25 mcg PO DAILY [facility] Last Admin: 01/24/17 09:41 Dose: 25 mcg Meclizine HCl (Antivert) 25 mg PO Q8 PRN PRN Reason: Dizziness Medroxyprogesterone Acetate (Provera) 10 mg PO DAILY [facility] Last Admin: 01/24/17 11:00 Dose: 10 mg Methylprednisolone (Solu-Medrol) 40 mg IVP Q12 [facility] Last Admin: 01/24/17 09:45 Dose: 40 mg Montelukast Sodium (Singulair) 10 mg PO HS [facility] Last Admin: 01/23/17 22:16 Dose: 10 mg Pantoprazole Sodium (Protonix Ec Tab) 40 mg PO DAILY [facility] Last Admin: 01/24/17 09:40 Dose: 40 mg Rivaroxaban (Xarelto) 20 mg PO DAILY [facility] PRN Reason: Protocol Last Admin: 01/24/17 09:40 Dose: 20 mg Roflumilast (Daliresp) 500 mcg PO DAILY [facility] Last Admin: 01/24/17 09:40 Dose: 500 mcg Ropinirole HCl (Requip) 1.5 mg PO BID [facility] Last Admin: 01/24/17 09:39 Dose: 1.5 mg Valacyclovir HCl (Valtrex) 500 mg PO BID [facility] PRN Reason: Protocol Last Admin: 01/24/17 09:40 Dose: 500 mg - Constitutional Appears: Non-toxic, No Acute Distress, Chronically Ill - Head Exam Head Exam: ATRAUMATIC, NORMOCEPHALIC - Eye Exam Eye Exam: EOMI, PERRL Pupil Exam: NORMAL ACCOMODATION, PERRL - ENT Exam ENT Exam: Mucous Membranes Moist, Normal External Ear Exam, TM's Normal Bilaterally - Neck Exam Neck Exam: Full ROM, Normal Inspection - Respiratory Exam Respiratory Exam: Clear to Ausculation Bilateral, NORMAL BREATHING PATTERN. absent: Rales, Rhonchi, Wheezes - Cardiovascular Exam Cardiovascular Exam: REGULAR RHYTHM, RRR, +S1, +S2 - GI/Abdominal Exam GI & Abdominal Exam: Soft, Normal Bowel Sounds. absent: Distended, Tenderness - Extremities Exam Additional comments: multiple scabs on arms and legs. - Back Exam Additional comments: buffalo hump - Neurological Exam Neurological Exam: Alert, Awake, CN II-XII Intact, Oriented x3 - Psychiatric Exam Psychiatric exam: Normal Affect, Normal Mood - Skin Skin Exam: Intact, Normal Color Assessment and Plan - Assessment and Plan (Free Text) Assessment: 36 yo female brought in for worsening cough and shortness of breath. Off of antibiotics. The patient's chest X-ray is not showing any specific lung findings. There is a mild leukocytosis. Patient does have multiple medical issues including Morbid Obesity, Diabetes Mellitus, poor skin condition, COPD and Emphysema history. Patient had completed a course of Daptomycin for endocarditis two weeks ago that spanned almost 10 weeks of therapy. Also recently finished antifungal medication around the same time. Patient continues to have numbness of the toes with constant injuries to the them especially the right foot. Supportive care. Spoke with Dr. Hernandez. Thank you for allowing me to participate in the care of the patient, we will follow with you.
--- NOTE | 2017-01-24 17:40 | CP.PCM.PN ---
<Edwin Harmon - Last Filed: 01/24/17 19:03> Subjective - Date & Time of Evaluation Date of Evaluation: 01/24/17 Time of Evaluation: 08:10 - Subjective Subjective: 36yo female with pmh of steroid-dependent asthma, chronic sinusitis, GERD, DM2, gastroparesis, endocarditis, ARTHUR, bronchiectasis, recurrent cellulitis, DVT, and Jennifer's syndrome c/o shortness of breath for the past several weeks that was not relieved with home medications. She has received breathing treatments and Solumedrol during this visit and has improved. Today, she states that she is feeling better, but still complains of pain in her back upon inspiration which makes her mildly short of breath, a dry cough, burning on urination and slight diarrhea. She denies fever, chills, chest pain, palpitations, abdominal pain, nausea or vomiting. Objective - Vital Signs/Intake and Output Vital Signs (last 24 hours): Temp Pulse Resp BP Pulse Ox 97.9 F 120 H 20 109/62 93 L 01/24/17 16:18 01/24/17 16:18 01/24/17 16:18 01/24/17 16:18 01/24/17 16:18 Intake and Output: 01/24/17 01/24/17 06:59 18:59 Intake Total 2200 Balance 2200 - Medications Medications: Current Medications Albuterol/Ipratropium (Duoneb 3 Mg/0.5 Mg (3 Ml) Ud) 3 ml IH [id number] [facility] Last Admin: 01/24/17 15:53 Dose: 3 ml Albuterol/Ipratropium (Duoneb 3 Mg/0.5 Mg (3 Ml) Ud) 3 ml IH Q2H PRN PRN Reason: Shortness of Breath Diazepam (Valium) 5 mg PO TID [facility] PRN Reason: Protocol Last Admin: 01/24/17 13:58 Dose: 5 mg Diltiazem HCl (Cardizem) 30 mg PO Q8 [facility] Last Admin: 01/24/17 13:59 Dose: 30 mg Duloxetine HCl (Cymbalta) 60 mg PO DAILY [facility] Last Admin: 01/24/17 09:39 Dose: 60 mg Gabapentin (Neurontin) 300 mg PO TID [facility] PRN Reason: Protocol Last Admin: 01/24/17 13:59 Dose: 300 mg Guaifenesin (Robitussin) 100 mg PO Q4H PRN PRN Reason: Cough Last Admin: 01/24/17 14:03 Dose: 100 mg Hydromorphone HCl (Dilaudid) 1 mg IVP Q4H PRN PRN Reason: Pain, moderate (4-7) Last Admin: 01/24/17 16:29 Dose: 1 mg Insulin Detemir (Levemir) 20 unit SC BID [facility] Last Admin: 01/24/17 09:41 Dose: 20 unit Insulin Human Regular (Humulin R High) 0 units SC ACHS [facility] PRN Reason: Protocol Last Admin: 01/24/17 16:34 Dose: 12 units Levothyroxine Sodium (Synthroid) 25 mcg PO DAILY [facility] Last Admin: 01/24/17 09:41 Dose: 25 mcg Meclizine HCl (Antivert) 25 mg PO Q8 PRN PRN Reason: Dizziness Medroxyprogesterone Acetate (Provera) 10 mg PO DAILY [facility] Last Admin: 01/24/17 11:00 Dose: 10 mg Methylprednisolone (Solu-Medrol) 40 mg IVP Q12 [facility] Last Admin: 01/24/17 09:45 Dose: 40 mg Montelukast Sodium (Singulair) 10 mg PO HS [facility] Last Admin: 01/23/17 22:16 Dose: 10 mg Pantoprazole Sodium (Protonix Ec Tab) 40 mg PO DAILY [facility] Last Admin: 01/24/17 09:40 Dose: 40 mg Rivaroxaban (Xarelto) 20 mg PO DAILY [facility] PRN Reason: Protocol Last Admin: 01/24/17 09:40 Dose: 20 mg Roflumilast (Daliresp) 500 mcg PO DAILY [facility] Last Admin: 01/24/17 09:40 Dose: 500 mcg Ropinirole HCl (Requip) 1.5 mg PO BID [facility] Last Admin: 01/24/17 09:39 Dose: 1.5 mg Valacyclovir HCl (Valtrex) 500 mg PO BID [facility] PRN Reason: Protocol Last Admin: 01/24/17 09:40 Dose: 500 mg - Constitutional Appears: Non-toxic, No Acute Distress - Head Exam Head Exam: ATRAUMATIC, NORMOCEPHALIC - Eye Exam Eye Exam: EOMI - ENT Exam ENT Exam: Mucous Membranes Moist - Neck Exam Neck Exam: Full ROM. absent: Lymphadenopathy - Respiratory Exam Respiratory Exam: Decreased Breath Sounds (likely 2/2 to body habitus), Clear to Ausculation Bilateral, NORMAL BREATHING PATTERN. absent: Rales, Rhonchi, Wheezes - Cardiovascular Exam Cardiovascular Exam: REGULAR RHYTHM, RRR, +S1, +S2. absent: Gallop, Rubs - GI/Abdominal Exam GI & Abdominal Exam: Soft, Normal Bowel Sounds. absent: Tenderness - Extremities Exam Extremities Exam: absent: Joint Swelling, Pedal Edema Additional comments: multiple wounds/ulcers on feet and toes with missing toenails. - Back Exam Back Exam: absent: CVA tenderness (L), CVA tenderness (R), paraspinal tenderness , rash noted Additional comments: two wounds midline on back that did not completely heal - Neurological Exam Neurological Exam: Alert, Awake - Psychiatric Exam Psychiatric exam: Normal Affect, Normal Mood - Skin Skin Exam: Dry, Intact, Normal Color, Warm Assessment and Plan - Assessment and Plan (Free Text) Assessment: 36yo female c/o shortness of breath x 2 days likely secondary to COPD exacerbation. Plan: 1. Shortness of breath likely 2/2 COPD Exacerbation -symptoms improving -Duonebs q4h vicki -Duonebs q2h prn -Solumedrol 60 mg IV q12h -Supplemental O2 as needed -Continue singulair and daliresp -Robitussin prn 2. Hx of endocarditis/right atrial mass -Patient previously on daptomycin -ID consulted - Dr. Vera -supportive care 3. History of DVT/PE -Xarelto 20 mg po qd -Cardizem 30 mg po tid for rate control 4. Diabetes Mellitus type 2 -Humulin high dose ISS -decreased Solu-Medrol from 60mg to 40mg Q12 -increased Levemir from 10 to 20mg SC bid -Insulin Reg 8u -Fingersticks ACHS -low consistent carb diet 5. Hypothyroidism -Continue Synthroid 25 mcg po qd 6. Hx of Shingles -Continue Valacyclovir 500 mg po bid 7. Restless Leg Syndrome -Continue Ropinirole 1.5 mg po bid 8. Anxiety/Depression -Valium -Cymbalta 9. Dizziness -Meclizine 10. GI/DVT Prophylaxis -Protonix/Xarelto Patient seen and case discussed with attending <Rangasamy,Ajantha - Last Filed: 01/25/17 10:45> Objective - Vital Signs/Intake and Output Vital Signs (last 24 hours): Temp Pulse Resp BP Pulse Ox 98.5 F 112 H 24 146/92 H 95 01/25/17 07:54 01/25/17 07:54 01/25/17 07:54 01/25/17 07:54 01/25/17 07:54 Intake and Output: 01/25/17 01/25/17 06:59 18:59 Intake Total 1080 Balance 1080 - Medications Medications: Current Medications Albuterol/Ipratropium (Duoneb 3 Mg/0.5 Mg (3 Ml) Ud) 3 ml IH [id number] [facility] Last Admin: 01/25/17 07:57 Dose: 3 ml Albuterol/Ipratropium (Duoneb 3 Mg/0.5 Mg (3 Ml) Ud) 3 ml IH Q2H PRN PRN Reason: Shortness of Breath Diazepam (Valium) 5 mg PO TID [facility] PRN Reason: Protocol Last Admin: 01/25/17 09:40 Dose: 5 mg Diltiazem HCl (Cardizem) 30 mg PO Q8 [facility] Last Admin: 01/25/17 06:15 Dose: 30 mg Duloxetine HCl (Cymbalta) 60 mg PO DAILY [facility] Last Admin: 01/25/17 09:39 Dose: 60 mg Gabapentin (Neurontin) 300 mg PO TID [facility] PRN Reason: Protocol Last Admin: 01/25/17 09:39 Dose: 300 mg Glimepiride (Amaryl) 4 mg PO BID [facility] Last Admin: 01/25/17 09:39 Dose: 4 mg Guaifenesin (Robitussin) 100 mg PO Q4H PRN PRN Reason: Cough Last Admin: 01/25/17 08:38 Dose: 100 mg Hydromorphone HCl (Dilaudid) 1 mg IVP Q4H PRN PRN Reason: Pain, moderate (4-7) Last Admin: 01/25/17 08:38 Dose: 1 mg Insulin Detemir (Levemir) 30 unit SC BID [facility] Last Admin: 01/25/17 09:46 Dose: 30 unit Insulin Human Regular (Humulin R High) 0 units SC ACHS [facility] PRN Reason: Protocol Last Admin: 01/25/17 09:40 Dose: 10 units Levothyroxine Sodium (Synthroid) 25 mcg PO DAILY [facility] Last Admin: 01/25/17 09:39 Dose: 25 mcg Meclizine HCl (Antivert) 25 mg PO Q8 PRN PRN Reason: Dizziness Medroxyprogesterone Acetate (Provera) 10 mg PO DAILY [facility] Last Admin: 01/24/17 11:00 Dose: 10 mg Methylprednisolone (Solu-Medrol) 40 mg IVP Q12 [facility] Last Admin: 01/25/17 09:40 Dose: 40 mg Montelukast Sodium (Singulair) 10 mg PO HS [facility] Last Admin: 01/24/17 22:51 Dose: 10 mg Pantoprazole Sodium (Protonix Ec Tab) 40 mg PO DAILY [facility] Last Admin: 01/25/17 09:40 Dose: 40 mg Rivaroxaban (Xarelto) 20 mg PO DAILY [facility] PRN Reason: Protocol Last Admin: 01/24/17 09:40 Dose: 20 mg Roflumilast (Daliresp) 500 mcg PO DAILY [facility] Last Admin: 01/25/17 09:39 Dose: 500 mcg Ropinirole HCl (Requip) 1.5 mg PO BID [facility] Last Admin: 01/25/17 09:39 Dose: 1.5 mg Valacyclovir HCl (Valtrex) 500 mg PO BID [facility] PRN Reason: Protocol Last Admin: 01/25/17 09:40 Dose: 500 mg Assessment and Plan - Assessment and Plan (Free Text) Assessment: Attending note; Patient seen and examined with resident. Patient is a 36-year-old female with pmh of steroid-dependent asthma, chronic sinusitis, GERD, DM2, gastroparesis, recurrent cellulitis,h/o dvt, herpes, history of multiple wound infection associated with spinal stimulator and Jennifer's syndrome c/o shortness of breath for the past several weeks that was not relieved with home medications. Asthma exacerbation; recently treated with Omnicef for 10 days. Currently on oxygen, DuoNeb treatment and IV steroids. Patient also uses oxygen nasal cannula at home. Patient follows up with time study analyst as outpatient. Patient is clinically improving. Uncontrolled diabetes; started on insulin. Patient uses primarily at home. Patient also follows up with endocrinology closely. Blood culture, urine culture is negative. ID evaluation with Dr. vera appreciated. Patient completed 8 weeks of daptomycin. Also completed anti-fungal treatment by Dr. Brunson her primary care doctor/ infectious disease specialist. Patient is currently afebrile and nontoxic. Elevated white count secondary to steroids. possible discharge home tomorrow. Follow up with PMD DR. Hull. Attending/Attestation - Attestation I have personally seen and examined this patient.: Yes I have fully participated in the care of the patient.: Yes I have reviewed all pertinent clinical information, including history, physical exam and plan: Yes
[2017-01-25] MEDS: Albuterol-Ipratrop 3 mg / 0.5 (3 ml) UD IH SCH ×5 (00:35→15:51)
[2017-01-25] MEDS: HYDROmorphone 1 mg/ml ISec IVP PRN ×4 (03:12→17:35)
[2017-01-25] MEDS: guaiFENesin 100 mg/5 ml Syrup UD PO PRN ×2 (03:13→08:38)
[2017-01-25 07:55] VITALS: RESP 24
[2017-01-25] MEDS: Levothyroxine 25 MCG TAB PO SCH (09:39)
[2017-01-25] MEDS: Pantoprazole 40 mg EC Tab PO SCH (09:40)
[2017-01-25] MEDS: MethylPREDNISolone 40 mg Vial IVP SCH (09:40)
[2017-01-25] MEDS: Insulin Reg-HIGH-Coverage SC SCH ×3 (09:40→17:34)
[2017-01-25] MEDS: Insulin Detemir 100 units/ml Vial (Levemir) SC SCH ×2 (09:46→17:34)
[2017-01-25] MEDS ORDERED: Enoxaparin 40 mg Syringe SC SCH (10:45)
--- NOTE | 2017-01-25 11:00 | CP.PCM.DIS ---
<Gurjit Wade - Last Filed: 01/25/17 13:58> Provider - Provider Date of Admission: 01/24/17 09:48 Attending physician: Christal Hernandez MD Primary care physician: Robbi Lawson MD Consults: ID: Dr. Vera Podiatry: Dr. Reddy Time Spent in preparation of Discharge (in minutes): 40 Diagnosis - Discharge Diagnosis (1) Dyspnea Status: Acute Priority: Low Comment: see hospital course (2) COPD (chronic obstructive pulmonary disease) Status: Chronic Priority: Medium Comment: see hospital course (3) Shingles Status: Acute Comment: see hospital course (4) DVT (deep venous thrombosis) Status: Chronic Comment: see hospital course (5) Hypothyroid Status: Chronic Comment: see hospital course (6) Restless leg Status: Chronic Comment: see hospital course (7) Diabetes mellitus Status: Chronic Priority: Medium Comment: see hospital course (8) Asthma Status: Chronic Comment: see hospital course (9) Anxiety and depression Status: Acute Comment: see hospital course (10) Dizziness Status: Acute Comment: see hospital course (11) Endocarditis Status: Acute Comment: Patient previously on daptomycin. see hospital course Hospital Course - Lab Results Lab Results: Most Recent Lab Values WBC 14.4 10^3/ul (4.5-11.0) H 01/24/17 08:30 RBC 4.54 10^6/uL (3.5-6.1) 01/24/17 08:30 Hgb 10.6 gm/dL (12.0-16.0) L 01/24/17 08:30 Hct 35.4 % (36.0-48.0) L 01/24/17 08:30 MCV 78.0 fL (80.0-105.0) L 01/24/17 08:30 MCH 23.3 pg (25.0-35.0) L 01/24/17 08:30 MCHC 29.9 g/dl (31.0-37.0) L 01/24/17 08:30 RDW 18.4 % (11.5-14.5) H 01/24/17 08:30 Plt Count 287 10^3/uL (120.0-450.0) 01/24/17 08:30 MPV 9.4 fl (7.0-11.0) 01/24/17 08:30 Gran % 91.9 % (50.0-68.0) H 01/24/17 08:30 Lymph % (Auto) 2.8 % (22.0-35.0) L 01/24/17 08:30 Door % (Auto) 5.0 % (1.0-6.0) 01/24/17 08:30 Eos % (Auto) 0.0 % (1.5-5.0) L 01/24/17 08:30 Baso % (Auto) 0.3 % (0.0-3.0) 01/24/17 08:30 Gran # 13.26 (1.4-6.5) H 01/24/17 08:30 Lymph # 0.4 (1.2-3.4) L 01/24/17 08:30 Door # 0.7 (0.1-0.6) H 01/24/17 08:30 Eos # 0.0 (0.0-0.7) 01/24/17 08:30 Baso # 0.04 K/mm3 (0.0-2.0) 01/24/17 08:30 Neutrophils % (Manual) 56 % (50.0-70.0) 01/22/17 19:00 Band Neutrophils % 4 % (0-2) H 01/22/17 19:00 Lymphocytes % (Manual) 17 % (22.0-35.0) L 01/22/17 19:00 Monocytes % (Manual) 15 % (1.0-6.0) H 01/22/17 19:00 Eosinophils % (Manual) 8 % (0.0-3.0) H 01/22/17 19:00 Platelet Evaluation Normal (NORMAL) 01/22/17 19:00 Sodium 136 mmol/L (132-148) 01/24/17 08:30 Potassium 5.1 mmol/L (3.6-5.0) H 01/24/17 08:30 Chloride 100 mmol/L (95-110) 01/24/17 08:30 Carbon Dioxide 19 mmol/L (21-33) L 01/24/17 08:30 Anion Gap 22 (10-20) H 01/24/17 08:30 BUN 21 mg/dL (7-21) 01/24/17 08:30 Creatinine 0.6 mg/dL (0.5-1.4) 01/24/17 08:30 Est GFR ( Amer) > 60 01/24/17 08:30 Est GFR (Non-Af Amer) > 60 01/24/17 08:30 POC Glucose (mg/dL) 319 mg/dL (65-110) H 01/25/17 07:33 Random Glucose 535 mg/dL (70-110) H* D 01/24/17 08:30 Calcium 9.2 mg/dL (8.4-10.5) 01/24/17 08:30 Total Bilirubin 0.7 mg/dL (0.2-1.3) 01/24/17 08:30 AST 31 U/L (15-39) 01/24/17 08:30 ALT 58 U/L (7-56) H 01/24/17 08:30 Alkaline Phosphatase 67 U/L (38-133) 01/24/17 08:30 Lactate Dehydrogenase 686 U/L (333-699) 01/22/17 19:00 Total Creatine Kinase < 20 U/L (35-230) L 01/22/17 19:00 Troponin I < 0.01 ng/mL 01/22/17 19:00 NT-Pro-B Natriuret Pep 18.0 pg/mL (0-450) 01/22/17 19:00 Total Protein 7.3 g/dL (5.8-8.3) 01/24/17 08:30 Albumin 4.2 g/dL (3.0-4.8) 01/24/17 08:30 Globulin 3.1 gm/dL 01/24/17 08:30 Albumin/Globulin Ratio 1.3 (1.1-1.8) 01/24/17 08:30 Urine Color Yellow (YELLOW) 01/23/17 00:00 Urine Appearance Slight-cloudy (CLEAR) 01/23/17 00:00 Urine pH 6.0 (4.7-8.0) 01/23/17 00:00 Ur Specific [place] >= 1.030 (1.005-1.035) 01/23/17 00:00 Urine Protein 100 mg/dL (<30 mg/dL) H 01/23/17 00:00 Urine Glucose (UA) 500 mg/dL (NEGATIVE) H 01/23/17 00:00 Urine Ketones Negative mg/dL (NEGATIVE) 01/23/17 00:00 Urine Blood Trace-intact (NEGATIVE) H 01/23/17 00:00 Urine Nitrate Negative (NEGATIVE) 01/23/17 00:00 Urine Bilirubin Negative (NEGATIVE) 01/23/17 00:00 Urine Urobilinogen 0.2 E.U./dL (<1 E.U./dL) 01/23/17 00:00 Ur Leukocyte Esterase Negative Jesus/uL (NEGATIVE) 01/23/17 00:00 Urine RBC 2 - 5 /hpf (0-2) 01/23/17 00:00 Urine WBC 2 - 5 /hpf (0-6) 01/23/17 00:00 Ur Epithelial Cells 0 - 2 /hpf (0-5) 01/23/17 00:00 Urine Bacteria Few (NEG) 01/23/17 00:00 Urine Other Uyeast 01/23/17 00:00 - Hospital Course Hospital Course: 36F with extensive past medical history that presented to [facility] c/o shortness of breath for the past several weeks. Patient stated that within the last 2 days her shortness of breath has been very bad and her medications have only been minimally helpful. She states that she has been unable to sleep and is on home oxygen (3L). She also reported one episode of nausea/vomiting today as well as non-productive cough. She states that she had recently been to [facility] for similar complaints. Patient denies sick contacts, fever, chills, chest pain, palpitations, abdominal pain, focal weakness, numbness, tingling. Patient was admitted for shortness of breath likely secondary to COPD exacerbation. She was started on Duonebs, solu-medrol, supplemental O2 as needed , and her home medications. Infectious disease was consulted, Dr. Vera, for previous endocarditis infection. Patient recently finished course of daptomycin. CXR was done showed no focal consolidation, significant pleural effusion, or definite pneumothorax. Patient's regimen did not change much over the three days of admission. She was in hospital from 01/23 until 01/25. Patient improved clinically and on 01/25 was deemed medically stable for discharge to home by Dr. Hernandez. This is a summary of the hospital stay, please refer to EMR for more details. Discharge Exam - Head Exam Head Exam: ATRAUMATIC, NORMOCEPHALIC - Eye Exam Eye Exam: EOMI, Normal appearance Pupil Exam: PERRL - ENT Exam ENT Exam: Mucous Membranes Moist - Neck Exam Neck exam: Normal Inspection - Respiratory Exam Respiratory Exam: Clear to PA & Lateral, NORMAL BREATHING PATTERN. absent: Accessory Muscle Use, Respiratory Distress - Cardiovascular Exam Cardiovascular Exam: Tachycardia, REGULAR RHYTHM, +S1, +S2 - GI/Abdominal Exam GI & Abdominal Exam: Normal Bowel Sounds, Soft. absent: Distended, Firm, Guarding, Rebound, Tenderness - Extremities Exam Extremities exam: normal capillary refill, pedal pulses present - Back Exam Back exam: absent: CVA tenderness (L), CVA tenderness (R) - Neurological Exam Neurological exam: Alert, CN II-XII Intact, Oriented x3 - Psychiatric Exam Psychiatric exam: Normal Affect, Normal Mood - Skin Skin Exam: Dry, Intact, Normal Color, Warm Discharge Plan - Discharge Medications Prescriptions: Glimepiride [Amaryl] 4 mg PO BID #60 tablet guaiFENesin [Robitussin] 100 mg PO Q4H PRN #10 udc PRN Reason: Cough Levalbuterol HCl [Xopenex] 0.63 mg IH Q8 #50 vial.neb predniSONE [predniSONE Tab] 20 mg PO DAILY #7 tab - Follow Up Plan Condition: STABLE Disposition: HOME/ ROUTINE Instructions: Diabetic Foot Care (DC), COPD (Chronic Obstructive Pulmonary Disease) (DC), Diabetic Foot Ulcers (DC), Anxiety (DC) Additional Instructions: Patient is medically stable for discharge to home by Dr. Hernandez. Patient to take Predisone 20 mg by mouth daily for 7 days, Robotussin 100 mg by mouth every 4 hours as needed, Amaryl 4 mg by mouth twice per day, and Xopenex 0.63 mg inhaled every 8 hours as needed. Patient is to resume home medications as previously prescribed. Patient is to follow up with PMD within 1 week of discharge. She may resume physical activity as tolerated. Please return to ED if symptoms persist or condition worsens. All instructions stated above were discussed with the patient and her spouse. They both verbalized understanding and agreement. Referrals: Robbi Lawosn MD [Primary Care Provider] - Follow up with primary <Christal Hernandez - Last Filed: 01/25/17 15:24> Provider - Provider Date of Admission: 01/24/17 09:48 Attending physician: Christal Hernandez MD Primary care physician: Robbi Lawson MD Time Spent in preparation of Discharge (in minutes): 35 Hospital Course - Lab Results Lab Results: Most Recent Lab Values WBC 14.4 10^3/ul (4.5-11.0) H 01/24/17 08:30 RBC 4.54 10^6/uL (3.5-6.1) 01/24/17 08:30 Hgb 10.6 gm/dL (12.0-16.0) L 01/24/17 08:30 Hct 35.4 % (36.0-48.0) L 01/24/17 08:30 MCV 78.0 fL (80.0-105.0) L 01/24/17 08:30 MCH 23.3 pg (25.0-35.0) L 01/24/17 08:30 MCHC 29.9 g/dl (31.0-37.0) L 01/24/17 08:30 RDW 18.4 % (11.5-14.5) H 01/24/17 08:30 Plt Count 287 10^3/uL (120.0-450.0) 01/24/17 08:30 MPV 9.4 fl (7.0-11.0) 01/24/17 08:30 Gran % 91.9 % (50.0-68.0) H 01/24/17 08:30 Lymph % (Auto) 2.8 % (22.0-35.0) L 01/24/17 08:30 Door % (Auto) 5.0 % (1.0-6.0) 01/24/17 08:30 Eos % (Auto) 0.0 % (1.5-5.0) L 01/24/17 08:30 Baso % (Auto) 0.3 % (0.0-3.0) 01/24/17 08:30 Gran # 13.26 (1.4-6.5) H 01/24/17 08:30 Lymph # 0.4 (1.2-3.4) L 01/24/17 08:30 Door # 0.7 (0.1-0.6) H 01/24/17 08:30 Eos # 0.0 (0.0-0.7) 01/24/17 08:30 Baso # 0.04 K/mm3 (0.0-2.0) 01/24/17 08:30 Neutrophils % (Manual) 56 % (50.0-70.0) 01/22/17 19:00 Band Neutrophils % 4 % (0-2) H 01/22/17 19:00 Lymphocytes % (Manual) 17 % (22.0-35.0) L 01/22/17 19:00 Monocytes % (Manual) 15 % (1.0-6.0) H 01/22/17 19:00 Eosinophils % (Manual) 8 % (0.0-3.0) H 01/22/17 19:00 Platelet Evaluation Normal (NORMAL) 01/22/17 19:00 Sodium 136 mmol/L (132-148) 01/24/17 08:30 Potassium 5.1 mmol/L (3.6-5.0) H 01/24/17 08:30 Chloride 100 mmol/L (95-110) 01/24/17 08:30 Carbon Dioxide 19 mmol/L (21-33) L 01/24/17 08:30 Anion Gap 22 (10-20) H 01/24/17 08:30 BUN 21 mg/dL (7-21) 01/24/17 08:30 Creatinine 0.6 mg/dL (0.5-1.4) 01/24/17 08:30 Est GFR ( Amer) > 60 01/24/17 08:30 Est GFR (Non-Af Amer) > 60 01/24/17 08:30 POC Glucose (mg/dL) 420 mg/dL (65-110) H* 01/25/17 11:03 Random Glucose 535 mg/dL (70-110) H* D 01/24/17 08:30 Calcium 9.2 mg/dL (8.4-10.5) 01/24/17 08:30 Total Bilirubin 0.7 mg/dL (0.2-1.3) 01/24/17 08:30 AST 31 U/L (15-39) 01/24/17 08:30 ALT 58 U/L (7-56) H 01/24/17 08:30 Alkaline Phosphatase 67 U/L (38-133) 01/24/17 08:30 Lactate Dehydrogenase 686 U/L (333-699) 01/22/17 19:00 Total Creatine Kinase < 20 U/L (35-230) L 01/22/17 19:00 Troponin I < 0.01 ng/mL 01/22/17 19:00 NT-Pro-B Natriuret Pep 18.0 pg/mL (0-450) 01/22/17 19:00 Total Protein 7.3 g/dL (5.8-8.3) 01/24/17 08:30 Albumin 4.2 g/dL (3.0-4.8) 01/24/17 08:30 Globulin 3.1 gm/dL 01/24/17 08:30 Albumin/Globulin Ratio 1.3 (1.1-1.8) 01/24/17 08:30 Urine Color Yellow (YELLOW) 01/23/17 00:00 Urine Appearance Slight-cloudy (CLEAR) 01/23/17 00:00 Urine pH 6.0 (4.7-8.0) 01/23/17 00:00 Ur Specific [place] >= 1.030 (1.005-1.035) 01/23/17 00:00 Urine Protein 100 mg/dL (<30 mg/dL) H 01/23/17 00:00 Urine Glucose (UA) 500 mg/dL (NEGATIVE) H 01/23/17 00:00 Urine Ketones Negative mg/dL (NEGATIVE) 01/23/17 00:00 Urine Blood Trace-intact (NEGATIVE) H 01/23/17 00:00 Urine Nitrate Negative (NEGATIVE) 01/23/17 00:00 Urine Bilirubin Negative (NEGATIVE) 01/23/17 00:00 Urine Urobilinogen 0.2 E.U./dL (<1 E.U./dL) 01/23/17 00:00 Ur Leukocyte Esterase Negative Jesus/uL (NEGATIVE) 01/23/17 00:00 Urine RBC 2 - 5 /hpf (0-2) 01/23/17 00:00 Urine WBC 2 - 5 /hpf (0-6) 01/23/17 00:00 Ur Epithelial Cells 0 - 2 /hpf (0-5) 01/23/17 00:00 Urine Bacteria Few (NEG) 01/23/17 00:00 Urine Other Uyeast 01/23/17 00:00 - Hospital Course Hospital Course: Attending note; Patient seen and examined with resident. Patient is a 36-year-old female with pmh of steroid-dependent asthma, chronic sinusitis, GERD, DM2, gastroparesis, recurrent cellulitis,h/o dvt, herpes, history of multiple wound infection associated with spinal stimulator and Jennifer's syndrome c/o shortness of breath for the past several weeks that was not relieved with home medications. Asthma exacerbation; recently treated with Omnicef for 10 days. Treated with oxygen, DuoNeb treatment and IV steroids. Patient also uses oxygen nasal cannula at home. Patient follows up with meat cutter apprentice as outpatient. Patient improved significantly. Uncontrolled diabetes; started on insulin. Patient uses amaryl at home. Patient also follows up with endocrinology closely. adjust medication at home per endocrinology. Blood culture, urine culture is negative. ID evaluation with Dr. carol reinoso. Patient completed 8 weeks of daptomycin. Also completed anti-fungal treatment by Dr. Brunson her primary care doctor/ infectious disease specialist. Patient is currently afebrile and nontoxic. Elevated white count secondary to steroids. Foot care done by Dr. Cordova. follow up with Dr. Lopez. Follow up with PMD DR. Hull. discharge home today. Diagnosis; asthma diabetes Diabetic foot care Obesity
[2017-01-25 16:57] VITALS: BP 140/91; PULSE 117; TEMP 98.2; O2SAT 94
--- NOTE | 2017-01-25 17:53 | CP.PCM.PN ---
Subjective - Date & Time of Evaluation Date of Evaluation: 01/25/17 Time of Evaluation: 15:30 - Subjective Subjective: Infectious Disease Follow Up: January 25, 2017 36 yo female with multiple hospitalizations to both [facility] [place] and [facility] [place] over the past few years who presents with worsening shortness of breath and cough for one week. Recent Chest CT done at [facility] [place]. Her home medications have not improved her situation. Patient mother states that the CT Chest at [facility] [place] showed a RLL nodule. Currently on nasal cannula. No major complaints. Possible discharge today. Objective - Vital Signs/Intake and Output Vital Signs (last 24 hours): Temp Pulse Resp BP Pulse Ox 98.2 F 117 H 24 140/91 H 94 L 01/25/17 16:56 01/25/17 16:56 01/25/17 16:56 01/25/17 16:56 01/25/17 16:56 Intake and Output: 01/25/17 01/25/17 06:59 18:59 Intake Total 1080 2300 Balance 1080 2300 - Medications Medications: Current Medications Albuterol/Ipratropium (Duoneb 3 Mg/0.5 Mg (3 Ml) Ud) 3 ml IH [id number] [facility] Last Admin: 01/25/17 15:51 Dose: 3 ml Albuterol/Ipratropium (Duoneb 3 Mg/0.5 Mg (3 Ml) Ud) 3 ml IH Q2H PRN PRN Reason: Shortness of Breath Diazepam (Valium) 5 mg PO TID [facility] PRN Reason: Protocol Last Admin: 01/25/17 17:32 Dose: 5 mg Diltiazem HCl (Cardizem) 30 mg PO Q8 [facility] Last Admin: 01/25/17 13:50 Dose: 30 mg Duloxetine HCl (Cymbalta) 60 mg PO DAILY [facility] Last Admin: 01/25/17 09:39 Dose: 60 mg Gabapentin (Neurontin) 300 mg PO TID [facility] PRN Reason: Protocol Last Admin: 01/25/17 17:33 Dose: 300 mg Glimepiride (Amaryl) 4 mg PO BID [facility] Last Admin: 01/25/17 17:33 Dose: 4 mg Guaifenesin (Robitussin) 100 mg PO Q4H PRN PRN Reason: Cough Last Admin: 01/25/17 08:38 Dose: 100 mg Hydromorphone HCl (Dilaudid) 1 mg IVP Q4H PRN PRN Reason: Pain, moderate (4-7) Last Admin: 01/25/17 17:35 Dose: 1 mg Insulin Detemir (Levemir) 30 unit SC BID [facility] Last Admin: 01/25/17 17:34 Dose: 30 unit Insulin Human Regular (Humulin R High) 0 units SC ACHS [facility] PRN Reason: Protocol Last Admin: 01/25/17 17:34 Dose: 12 units Levothyroxine Sodium (Synthroid) 25 mcg PO DAILY [facility] Last Admin: 01/25/17 09:39 Dose: 25 mcg Meclizine HCl (Antivert) 25 mg PO Q8 PRN PRN Reason: Dizziness Medroxyprogesterone Acetate (Provera) 10 mg PO DAILY [facility] Last Admin: 01/25/17 10:40 Dose: 10 mg Methylprednisolone (Solu-Medrol) 40 mg IVP Q12 [facility] Last Admin: 01/25/17 09:40 Dose: 40 mg Montelukast Sodium (Singulair) 10 mg PO HS [facility] Last Admin: 01/24/17 22:51 Dose: 10 mg Pantoprazole Sodium (Protonix Ec Tab) 40 mg PO DAILY [facility] Last Admin: 01/25/17 09:40 Dose: 40 mg Rivaroxaban (Xarelto) 20 mg PO DAILY [facility] PRN Reason: Protocol Last Admin: 01/25/17 11:00 Dose: 20 mg Roflumilast (Daliresp) 500 mcg PO DAILY [facility] Last Admin: 01/25/17 09:39 Dose: 500 mcg Ropinirole HCl (Requip) 1.5 mg PO BID [facility] Last Admin: 01/25/17 17:32 Dose: 1.5 mg Valacyclovir HCl (Valtrex) 500 mg PO BID [facility] PRN Reason: Protocol Last Admin: 01/25/17 17:33 Dose: 500 mg - Constitutional Appears: Non-toxic, No Acute Distress, Chronically Ill - Head Exam Head Exam: ATRAUMATIC, NORMOCEPHALIC - Eye Exam Eye Exam: EOMI, PERRL Pupil Exam: NORMAL ACCOMODATION, PERRL - ENT Exam ENT Exam: Mucous Membranes Moist, Normal External Ear Exam, TM's Normal Bilaterally - Neck Exam Neck Exam: Full ROM, Normal Inspection - Respiratory Exam Respiratory Exam: Clear to Ausculation Bilateral, NORMAL BREATHING PATTERN. absent: Rales, Rhonchi, Wheezes - Cardiovascular Exam Cardiovascular Exam: REGULAR RHYTHM, RRR, +S1, +S2 - GI/Abdominal Exam GI & Abdominal Exam: Soft, Normal Bowel Sounds. absent: Distended, Tenderness - Extremities Exam Additional comments: multiple scabs on arms and legs. - Back Exam Additional comments: buffalo hump - Neurological Exam Neurological Exam: Alert, Awake, CN II-XII Intact, Oriented x3 - Psychiatric Exam Psychiatric exam: Normal Affect, Normal Mood - Skin Skin Exam: Intact, Normal Color Assessment and Plan - Assessment and Plan (Free Text) Assessment: 36 yo female brought in for worsening cough and shortness of breath. Off of antibiotics. The patient's chest X-ray is not showing any specific lung findings. There is a mild leukocytosis. Patient does have multiple medical issues including Morbid Obesity, Diabetes Mellitus, poor skin condition, COPD, and Emphysema history. Patient had completed a course of Daptomycin for endocarditis two weeks ago that spanned almost 10 weeks of therapy. Also recently finished antifungal medication around the same time. Patient continues to have numbness of the toes with constant injuries to the them especially the right foot. Supportive care. Spoke with Dr. Hernandez. Thank you for allowing me to participate in the care of the patient, we will follow with you.
== END 2017-01-25 18:47 | disposition home health service (06) | DRG 191 ==
LOC: EDUNIT# → ED 18:40 → ERH 23:38 → 5RSO 01-23 02:31 → OBSVTOIN 01-24 09:48
PROVIDERS: ADMIT Internal Medicine; ATTEND Internal Medicine
PROC: 3E0F7GC Introduction of Other Therapeutic Substance into Respiratory Tract, Via Natural or Artificial Opening (ICD-10-PCS; principal; 2017-01-23)
DX: J44.1 Chronic obstructive pulmonary disease with (acute) exacerbation (principal); Z68.43 Body mass index [BMI] 50.0-59.9, adult; E11.42 Type 2 diabetes mellitus with diabetic polyneuropathy; E11.621 Type 2 diabetes mellitus with foot ulcer; B02.9 Zoster without complications; K31.84 Gastroparesis; E66.01 Morbid (severe) obesity due to excess calories; I50.9 Heart failure, unspecified; E11.65 Type 2 diabetes mellitus with hyperglycemia; E11.43 Type 2 diabetes mellitus with diabetic autonomic (poly)neuropathy; G47.33 Obstructive sleep apnea (adult) (pediatric); J45.909 Unspecified asthma, uncomplicated; M81.0 Age-related osteoporosis without current pathological fracture; K21.9 Gastro-esophageal reflux disease without esophagitis; K22.4 Dyskinesia of esophagus; E03.9 Hypothyroidism, unspecified; G25.81 Restless legs syndrome; G89.4 Chronic pain syndrome; F41.9 Anxiety disorder, unspecified; M54.5 Low back pain; T38.0X5A Adverse effect of glucocorticoids and synthetic analogues, initial encounter; D72.829 Elevated white blood cell count, unspecified; F32.9 Major depressive disorder, single episode, unspecified; R42 Dizziness and giddiness; Z99.81 Dependence on supplemental oxygen; Z86.718 Personal history of other venous thrombosis and embolism; Z79.52 Long term (current) use of systemic steroids; Z79.4 Long term (current) use of insulin; Z86.711 Personal history of pulmonary embolism; Z87.891 Personal history of nicotine dependence; Z82.49 Family history of ischemic heart disease and other diseases of the circulatory system

== ENCOUNTER 2017-02-23 17:35 | Inpatient (IN) | payer MEDICARE, OTHER ==
[2017-02-23 17:47] VITALS: BMI 39.9
[2017-02-23] MEDS ORDERED: Albuterol-Ipratrop 3 mg / 0.5 (3 ml) UD IH STA ×2 (17:57→18:05)
[2017-02-23] MEDS ORDERED: Magnesium Sulfate 1 gm in D5W 1 GM/100 ML BAG IVPB ONE (18:02)
[2017-02-23 18:30] LABS: HEMATOCRIT 37.9 % (36.0-48.0); MEAN CELL VOLUME 76.3 fL (80.0-105.0); MEAN CORPUSCULAR HEMOGLOBIN 22.9 pg (25.0-35.0); MEAN CORPUSCULAR HGB CONC 30.1 g/dl (31.0-37.0); MEAN PLATELET VOLUME 10.3 fl (7.0-11.0); PLATELET COUNT 378 10^3/uL (120.0-450.0); RED CELL DISTRIBUTION WIDTH 18.7 % (11.5-14.5); WHITE BLOOD COUNT 17.6 10^3/ul (4.5-11.0)
--- NOTE | 2017-02-23 18:30 | ED PDOC ---
Arrival/HPI - General Chief Complaint: Shortness Of Breath Time Seen by Provider: 02/23/17 17:39 Historian: Patient, Family - History of Present Illness Narrative History of Present Illness (Text): 02/23/17 17:52 A 36 year old female, whose past medical history includes COPD (on home oxygen) and endocarditis infection, presents to the emergency department, accompanied by mother, for complaining of a non productive cough and shortness of breath. Patient reports she was in the car earlier today when she had a coughing spell and developed the shortness of breath. She states the symptoms are similar to her previous episodes of COPD. She denies any fever, chest pain or other complaints at this time. Mother states patient is on xarelto and is compliant. PMD: Dr. Olguin Time/Duration: Prior to Arrival Symptom Onset: Sudden Symptom Course: Unchanged Quality: Other Context: Home Past Medical History - Provider Review Nursing Documentation Reviewed: Yes - Infectious Disease Hx of Infectious Diseases: None - Tetanus Immunization Tetanus Immunization: Unknown - Cardiac Hx Cardiac Disorders: No - Pulmonary Hx Respiratory Disorders: No - Neurological Hx Dizziness: Yes Hx Migraine: Yes Hx Paralysis: No Hx Vertigo: Yes Other/Comment: Neuropathy - HEENT Hx Cataracts: Yes Hx Deafness: Yes Hx Glaucoma: Yes Other/Comment: parotid gland infection 2 ear sx's, sx for deviated septum - Renal Hx Renal Failure: Yes - Endocrine/Metabolic Hx Hyperthyroidism: Yes Hx Hypothyroidism: Yes Other/Comment: h/o DKA - Hematological/Oncological Hx Anemia: Yes Hx Blood Transfusions: Yes Hx Blood Transfusion Reaction: No Hx Shingles: Yes Other/Comment: 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 - Integumentary Hx Cellulitis: Yes (recurrent) Other/Comment: 2 open sores to abd, 2 open sores right let and 2 to left leg 2 open sores to right upper arm, open sore to upper back, surgical scar to mid lower back and left lower back,7cm x 2cm open surgical wound to left abd draining and packing - Musculoskeletal/Rheumatological Hx Arthritis: Yes Hx Back Pain: Yes Hx Degenerative Joint Disease: Yes Hx Falls: No Hx Osteoarthritis: Yes Hx Osteomyelitis: Yes Hx Osteoporosis: Yes Hx Unsteady Gait: Yes (uses walker and rollator) Other/Comment: h/o implanted spinal cord stimulator -- was taken out due to infection. Restless leg syndrome - Gastrointestinal Hx Gastroesophageal Reflux: Yes Hx Pancreatitis: Yes Other/Comment: Esophageal Motility Disorder. Diabetic Gastroparesis - Genitourinary/Gynecological Hx Incontinence: Yes Hx Reproductive Disorders: No Hx Urinary Tract Infection: Yes Other/Comment: pt report history of yeast infection - Psychiatric Hx Psychophysiologic Disorder: No Hx Substance Use: No - Surgical History Hx Appendectomy: Yes Hx Cataract Extraction: Yes Hx Cholecystectomy: Yes Hx Dilation and Curettage: Yes Hx Eye Surgery: Yes Hx Hysterectomy: Yes Hx Orthopedic Surgery: Yes (arthroscopic) Hx Vascular Access Device: Yes (port placed and removed) - Anesthesia Hx Anesthesia: No Hx Anesthesia Reactions: No Hx Malignant Hyperthermia: No - Suicidal Assessment Feels Threatened In Home Enviroment: No Family/Social History - Physician Review Nursing Documentation Reviewed: Yes Family/Social History: Unknown Family HX Smoking Status: Unknown If Ever Smoked Hx Alcohol Use: No Hx Substance Use: No Hx Substance Use Treatment: No Allergies/Home Meds Allergies/Adverse Reactions: Allergies ketorolac tromethamine [From Toradol] Allergy (Verified 01/22/17 19:19) ANAPHYLAXIS levofloxacin [From Levaquin] Allergy (Verified 06/16/16 17:02) NAUSEA metformin Allergy (Verified 06/16/16 17:02) ANAPHYLAXIS dapagliflozin propanediol [From Farxiga] Adverse Reaction (Verified 06/16/16 17: 02) .high blood sugar Home Medications: Home Meds Medication Instructions Recorded Confirmed diaZEpam [Valium] 5 mg PO TID 05/24/16 01/22/17 Cyanocobalamin [Vitamin B12 1000 0 mcg INJ .WEEKLY 01/22/17 01/22/17 mcg/ml Inj] Cyclobenzaprine [Flexeril] 10 mg PO Q8 PRN 01/22/17 01/23/17 HYDROmorphone [Dilaudid] 4 mg PO Q8 PRN 01/22/17 01/23/17 Meclizine [Meclizine*] 25 mg PO Q8 PRN 01/22/17 01/22/17 MedroxyPROGESTERone [Provera] 10 mg PO DAILY 01/22/17 01/22/17 Pantoprazole [Protonix EC Tab] 40 mg PO DAILY 01/22/17 01/22/17 diltiaZEM [Cardizem] 30 mg PO BID 01/22/17 01/23/17 Physical Exam - Physical Exam Narrative Physical Exam (Text): - Review of Systems Constitutional: Normal. absent: Fatigue, Weight Change, Fevers Eyes: Normal ENT: Normal Respiratory: Cough. Shortness of breath absent: Sputum Cardiovascular: Normal absent: Chest pain, Palpitations, Syncope Gastrointestinal: Normal absent: Abdominal pain, Diarrhea, Nausea, Vomiting Genitourinary: Normal. absent: Dysuria, Frequency, Hematuria Musculoskeletal: Normal. absent: Arthralgias, Back Pain, Neck Pain Skin: Normal Neurological: Normal absent: Focal Weakness Endocrine: Normal Hemo/Lymphatic: Normal Psychiatric: Normal - Physical exam Patient appears age appropriate, speaking full sentences without difficulty - Systems Exam Head: Present: Atraumatic, Normocephalic Pupils: Present: PERRL Extraocular Muscles: Present: EOMI Conjunctiva: Present: Normal Mouth: Present: Moist Mucous Membranes Neck: Present: Normal Range of Motion. No: MIDLINE TENDERNESS, Paraspinal Tenderness Respiratory/Chest: Present: Tachypneic, diffuse wheezing on expiration. No: Respiratory Distress, Accessory Muscle Use Cardiovascular: Present: Tachycardia, Normal S1, S2, Peripheral Pulses Present. No: Murmurs Abdomen: Present: Normal Bowel Sounds, No: Tenderness, Peritoneal Signs, Rebound, Guarding, Distention Back: Present: Normal Inspection. No: Midline Tenderness, Paraspinal Tenderness Upper Extremity: Present: Normal Inspection. No: Cyanosis, Edema Lower Extremity: Present: Normal Inspection. No: Edema Neurological: Present: GCS=15, Speech Normal, cranial nerves II through XII fully intact with no cerebellar abnormality, neuro-sensory fully intact. No focal neurological deficits. Skin: Present: Warm, Dry, Normal Color. No: Rashes Lymphatic: Present: OX3, NI, NC Psychiatric: Present: Alert, Oriented x 3, Normal Insight, Normal Concentration Vital Signs Reviewed: Yes Vital Signs Temp Pulse Resp BP Pulse Ox 02/23/17 18:35 20 97 02/23/17 17:47 100.1 F H 137 H 32 H 143/89 98 Temperature: Febrile Blood Pressure: Normal Pulse: Tachycardic Respiratory Rate: Tachypneic Appearance: Positive for: Well-Appearing, Non-Toxic, Comfortable Pain Distress: None Mental Status: Positive for: Alert and Oriented X 3 Medical Decision Making ED Course and Treatment: 02/23/17 17:52 Impression: A 36 year old female with shortness of breath and a cough. Pt has exp wheezing on auscultation. Differential Diagnosis include but are not limited to: COPD exacerbation vs. Pneumonia vs. bronchitis Plan: -- EKG -- Chest X-ray -- Labs -- Urinalysis -- Aspirin, Duoneb, Solu-Medrol and Magniesium Sulfate -- Reassess and disposition Prior Visits: Notes and results from previous visits were reviewed. The patient was discharged on 01/24/17 after being treated for a diabetic foot ulcer and COPD. Progress Notes: 02/23/17 19:22 Chest x-ray read by me shows no pneumothorax, no pneumonia, no cardiomegaly, no infiltrates. 02/23/17 19:57 on reevaluation, pt's wheezing significantly improved, no longer short of breath. speaking full sentences without difficulty Dr. Mckenna paged for admission pt aware of and agrees with plan pt's HR initially elevated, now in the 70s at rest. 02/23/17 20:[address] Mckenna, accepted admission to [facility] under the hospitalist service - Critical Care Critical Care Minutes: 30 minutes - Lab Interpretations Lab Results: 02/23/17 17:45 02/23/17 17:45 Lab Results 02/23/17 18:30: Urine Color Yellow, Urine Appearance Clear, Urine pH 6.0, Ur Specific [place] 1.010, Urine Protein Negative, Urine Glucose (UA) >=1000, Urine Ketones Trace H, Urine Blood Negative, Urine Nitrate Negative, Urine Bilirubin Negative, Urine Urobilinogen 0.2, Ur Leukocyte Esterase Negative 02/23/17 17:45: Sodium 135, Potassium 4.2, Chloride 97 L, Carbon Dioxide 26, Anion Gap 16, BUN 16, Creatinine 0.5, Est GFR ( Amer) > 60, Est GFR (Non- Af Amer) > 60, Random Glucose 323 H*, Calcium 9.2, Total Bilirubin 0.6, AST 42 H , ALT 43, Alkaline Phosphatase 64, Lactate Dehydrogenase 531, Total Creatine Kinase 26 L, Troponin I 0.03 D, NT-Pro-B Natriuret Pep 25.6, Total Protein 7.5 , Albumin 4.2, Globulin 3.3, Albumin/Globulin Ratio 1.3 02/23/17 17:45: PT 9.9, INR 0.92 L, APTT 23.9 02/23/17 17:45: WBC 17.6 H D, RBC 4.97, Hgb 11.4 L, Hct 37.9, MCV 76.3 L, MCH 22.9 L, MCHC 30.1 L, RDW 18.7 H, Plt Count 378, MPV 10.3, Neutrophils % (Manual ) 67, Lymphocytes % (Manual) 25, Monocytes % (Manual) 7 H, Eosinophils % (Manual ) 1, Platelet Evaluation Normal, Polychromasia Slight, Hypochromasia 1+, Poikilocytosis (manual Slight, Anisocytosis (manual) 1+, Microcytosis (manual) 1 +, Tear Drop Cells Slight, Ovalocytes Slight I have reviewed the lab results: Yes - RAD Interpretation Radiology Orders: 02/23/17 18:06 CHEST PORTABLE [RAD] Stat - Medication Orders Current Medication Orders: Vancomycin HCl (Vancomycin 1gm) 1 gm in 250 mls @ 133.333 mls/hr IVPB STAT STA PRN Reason: Protocol Stop: 02/23/17 21:21 Discontinued Medications Albuterol/Ipratropium (Duoneb 3 Mg/0.5 Mg (3 Ml) Ud) 3 ml IH STAT STA Stop: 02/23/17 17:58 Last Admin: 02/23/17 18:32 Dose: 3 ml Albuterol/Ipratropium (Duoneb 3 Mg/0.5 Mg (3 Ml) Ud) 3 ml IH STAT STA Stop: 02/23/17 18:06 Last Admin: 02/23/17 18:33 Dose: 3 ml Aspirin (Aspirin Chewable) 324 mg PO STAT STA Stop: 02/23/17 18:08 Last Admin: 02/23/17 18:33 Dose: 324 mg Magnesium Sulfate/Dextrose (Magnesium Sulfate 1 Gm/100 Ml D5w) 1 gm in 100 mls @ 100 mls/hr IVPB ONCE ONE Stop: 02/23/17 19:01 Last Admin: 02/23/17 18:33 Dose: 100 mls/hr Ceftriaxone Sodium (Rocephin 1 Gram Ivpb) 1 gm in 100 mls @ 200 mls/hr IV STAT STA PRN Reason: Protocol Stop: 02/23/17 19:58 Methylprednisolone (Solu-Medrol) 125 mg IVP STAT STA Stop: 02/23/17 17:58 Last Admin: 02/23/17 18:32 Dose: 125 mg - Scribe Statement The provider has reviewed the documentation as recorded by the Jarred Bentley Provider Jarred Attestation: All medical record entries made by the Scribe were at my direction and personally dictated by me. I have reviewed the chart and agree that the record accurately reflects my personal performance of the history, physical exam, medical decision making, and the department course for this patient. I have also personally directed, reviewed, and agree with the discharge instructions and disposition. Disposition/Present on Arrival - Present on Arrival Any Indicators Present on Arrival: No History of DVT/PE: No History of Uncontrolled Diabetes: No Urinary Catheter: No History of Decub. Ulcer: No History Surgical Site Infection Following: None - Disposition Have Diagnosis and Disposition been Completed?: Yes Diagnosis: COPD (chronic obstructive pulmonary disease) Disposition: HOSPITALIZED Disposition Time: 20:02 Patient Plan: Admission Condition: FAIR Referrals: Sharif GLOVER,Gorge Winters MD [Primary Care Provider] - Follow up with primary
[2017-02-23 18:32] LABS: ADD MANUAL DIFF? YES
[2017-02-23 18:37] LABS: ALB/GLOB RATIO 1.3 (1.1-1.8); ALKALINE PHOSPHATASE 64 U/L (38-133); ALT/SGPT 43 U/L (7-56); AST/SGOT 42 U/L (15-39); BILIRUBIN,TOTAL 0.6 mg/dL (0.2-1.3); BLOOD UREA NITROGEN 16 mg/dL (7-21); CALCIUM 9.2 mg/dL (8.4-10.5); CARBON DIOXIDE 26 mmol/L (21-33); CHLORIDE 97 mmol/L (98-107); GFR AFRICAN-AMERICAN > 60; POTASSIUM 4.2 mmol/L (3.6-5.0); SODIUM 135 mmol/L (132-148); TOTAL PROTEIN 7.5 g/dL (5.8-8.3)
[2017-02-23 18:40] LABS: GLUCOSE,RANDOM 323 mg/dL (70-110); INR 0.92 (0.93-1.08); PARTIAL THROMBOPLASTIN TIME 23.9 Seconds (23.7-30.8)
[2017-02-23 18:41] LABS: URINE APPEARANCE CLEAR (CLEAR); URINE BILIRUBIN NEGATIVE (NEGATIVE); URINE BLOOD NEGATIVE (NEGATIVE); URINE COLOR YELLOW (YELLOW); URINE GLUCOSE (UA) >=1000 mg/dL (NEGATIVE); URINE KETONE TRACE mg/dL (NEGATIVE); URINE LEUKOCYTE ESTERASE NEGATIVE Leu/uL (NEGATIVE); URINE PROTEIN NEGATIVE mg/dL (<30 mg/dL); URINE UROBILINOGEN 0.2 E.U./dL (<1 E.U./dL)
[2017-02-23 18:49] LABS: TROPONIN I 0.03 ng/mL
[2017-02-23 19:24] LABS: ANISOCYTOSIS 1+; EOSINOPHIL 1 % (0.0-3.0); HYPOCHROMIA 1+; MICROCYTOSIS 1+; NEUTROPHIL 67 % (50.0-70.0); OVALOCYTES SLIGHT; PLATELET ESTIMATE NORMAL (NORMAL); POIKILOCYTOSIS SLIGHT; POLYCHROMASIA SLIGHT; TEAR DROP CELLS SLIGHT
[2017-02-23] MEDS ORDERED: cefTRIAXone 1 gm 1 GM/100 ML BAG IV STA (19:29)
[2017-02-23] MEDS ORDERED: Vancomycin 1gm in NS 250ml 1 GM/250 ML BAG IVPB STA (19:29)
[2017-02-23] MEDS ORDERED: guaiFENesin 100 mg/5 ml Syrup UD PO PRN (21:45)
[2017-02-23] MEDS ORDERED: Iohexol 300 100 ML IJ ONE (22:07)
--- NOTE | 2017-02-23 22:57 | CP.PCM.HP ---
<Samantha Milner - Last Filed: 02/24/17 01:44> History of Present Illness - History of Present Illness History of Present Illness: 36 year old female with past medical history of asthma, COPD, DM type 2, hypertension, hypothyroid, DVT, PE s/p IVC filter, endocarditis, spinal cord modulator infection and morbidly obesity presents to ED today with complain of shortness of breath and coughs. Patient had multiple hospital admissions in the past for similar complains, last one was on 01/23/17. Intubated once in 2003. Patient reports she has these symptoms on and off for the past 4 months. The cough has been mostly nonproductive with occasional dark green phlegm. Patient is wheelchair bound, requires special transport. Patient went for a doctor's visit today and her shortness of breath exacerbated during her transportation back home. Patient states "it took them almost 2 hours to get me off their car" . Patient tried taking her COPD home medications, including 4L oxygen which provided no relief for her. Patient reports having a fever of 102 two days ago, it was resolved after taking a dose of Tylenol. Patient also reports having left lower rib pain which started soon after symptom exacerbation this afternoon. Patient has multiple slow healing wounds in her upper and lower extremities. Patient denies headache, weakness, chest pain, palpitations, abdominal pain, numbness, tingling, diarrhea, constipation, nausea, vomiting, or sick contacts. PMD: Dr. Lawson PMHx: asthma, COPD, DM type 2, hypertension, hypothyroid, DVT, PE s/p IVC filter , endocarditis, spinal cord modulator infection and morbidly obesity PSHx: IVC filter placement, spinal stimulator insertion and removal, B/l cataract surgery, nasal polypectomy x3, right knee meniscus repair Allergies: metformin, levofloxacin, dapagliflozin, ketorolac Social Hx: Former smoker, denies alcohol and other drug use Family Hx: mother with NM Home meds: valtrex, requip, prednisone, robitussin, cardizem, valium, daliresp, xarelto, protonix, singulair, meclizine, levoxyl, xopenex, dilaudid, amaryl, neurotin, cymbalta, flexeril, vitamin B12 inj Present on Admission - Present on Admission Any Indicators Present on Admission: Yes History of DVT/PE: Yes History of Uncontrolled Diabetes: No Urinary Catheter: No Review of Systems - Constitutional Constitutional: As Per HPI, Chills, Fever. absent: Headache - EENT Eyes: As Per HPI. absent: Blind Spots, Blurred Vision, Change in Vision Ears: As Per HPI. absent: Dizziness Nose/Mouth/Throat: As Per HPI. absent: Epistaxis, Nasal Trauma, Nose Pain, Sore Throat - Cardiovascular Cardiovascular: As Per HPI. absent: Chest Pain, Chest Pain at Rest, Leg Edema, Rapid Heart Rate, Slow Heart Rate - Respiratory Respiratory: As Per HPI, Cough, Dyspnea. absent: Hemoptysis, Wheezing - Gastrointestinal Gastrointestinal: As Per HPI. absent: Abdominal Pain - Musculoskeletal Musculoskeletal: As Per HPI. absent: Joint Swelling, Numbness, Tingling - Integumentary Integumentary: As Per HPI, Non-Healing Lesions - Neurological Neurological: As Per HPI. absent: Abnormal Speech, Dizziness, Numbness, Headaches, Sensory Deficit, Tingling, Tremor, Weakness - Psychiatric Psychiatric: As Per HPI. absent: Anxiety, Hallucinations, Irritability - Endocrine Endocrine: As Per HPI. absent: Polydipsia, Polyphagia, Polyuria - Hematologic/Lymphatic Hematologic: As Per HPI Past Patient History - Infectious Disease Hx of Infectious Diseases: None - Tetanus Immunizations Tetanus Immunization: Unknown - Past Medical History & Family History Past Medical History?: Yes - Past Social History Smoking Status: Unknown If Ever Smoked - CARDIAC Hx Cardiac Disorders: No - PULMONARY Hx Respiratory Disorders: No - NEUROLOGICAL Hx Dizziness: Yes Hx Migraine: Yes Hx Paralysis: No Hx Vertigo: Yes Other/Comment: Neuropathy - HEENT Hx Cataracts: Yes Hx Deafness: Yes Hx Glaucoma: Yes Other/Comment: parotid gland infection 2 ear sx's, sx for deviated septum - RENAL Hx Renal Failure: Yes - ENDOCRINE/METABOLIC Hx Hyperthyroidism: Yes Hx Hypothyroidism: Yes Other/Comment: h/o DKA - HEMATOLOGICAL/ONCOLOGICAL Hx Anemia: Yes Hx Blood Transfusions: Yes Hx Blood Transfusion Reaction: No Hx Shingles: Yes Other/Comment: 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 - INTEGUMENTARY Hx Cellulitis: Yes (recurrent) Other/Comment: 2 open sores to abd, 2 open sores right let and 2 to left leg 2 open sores to right upper arm, open sore to upper back, surgical scar to mid lower back and left lower back,7cm x 2cm open surgical wound to left abd draining and packing - MUSCULOSKELETAL/RHEUMATOLOGICAL Hx Arthritis: Yes Hx Back Pain: Yes Hx Degenerative Joint Disease: Yes Hx Falls: No Hx Osteoarthritis: Yes Hx Osteomyelitis: Yes Hx Osteoporosis: Yes Hx Unsteady Gait: Yes (uses walker and rollator) Other/Comment: h/o implanted spinal cord stimulator -- was taken out due to infection. Restless leg syndrome - GASTROINTESTINAL Hx Gastroesophageal Reflux: Yes Hx Pancreatitis: Yes Other/Comment: Esophageal Motility Disorder. Diabetic Gastroparesis - GENITOURINARY/GYNECOLOGICAL Hx Incontinence: Yes Hx Reproductive Disorders: No Hx Urinary Tract Infection: Yes Other/Comment: pt report history of yeast infection - PSYCHIATRIC Hx Psychophysiologic Disorder: No Hx Substance Use: No - SURGICAL HISTORY Hx Appendectomy: Yes Hx Cataract Extraction: Yes Hx Cholecystectomy: Yes Hx Dilation and Curettage: Yes Hx Eye Surgery: Yes Hx Hysterectomy: Yes Hx Orthopedic Surgery: Yes (arthroscopic) Hx Vascular Access Device: Yes (port placed and removed) - ANESTHESIA Hx Anesthesia: No Hx Anesthesia Reactions: No Hx Malignant Hyperthermia: No Meds Allergies/Adverse Reactions: Allergies Allergy/AdvReac Type Severity Reaction Status Date / Time ketorolac tromethamine Allergy ANAPHYLAXIS Verified 01/22/17 19:19 [From Toradol] levofloxacin [From Levaquin] Allergy NAUSEA Verified 06/16/16 17:02 metformin Allergy ANAPHYLAXIS Verified 06/16/16 17:02 dapagliflozin propanediol AdvReac .high Verified 06/16/16 17:02 [From Farxiga] blood sugar Physical Exam - Constitutional Appears: Non-toxic, No Acute Distress, Older Than Stated Age - Head Exam Head Exam: ATRAUMATIC, NORMAL INSPECTION, NORMOCEPHALIC - Eye Exam Eye Exam: EOMI, Normal appearance, PERRL - ENT Exam ENT Exam: Mucous Membranes Moist Additional comments: Yellow exudate appreciated in the pharynx. Uvula midline. No tonsilar swelling. - Neck Exam Neck exam: Positive for: Normal Inspection - Respiratory Exam Respiratory Exam: Clear to Auscultation Bilateral, NORMAL BREATHING PATTERN. absent: Wheezes, Respiratory Distress Additional comments: Left lower rib pain on palpation, worse with deep inspiration. No skin discoloration - Cardiovascular Exam Cardiovascular Exam: REGULAR RHYTHM, RRR, +S1, +S2 - GI/Abdominal Exam GI & Abdominal Exam: Normal Bowel Sounds, Soft. absent: Tenderness - Extremities Exam Extremities exam: Positive for: normal capillary refill, pedal pulses present. Negative for: joint swelling, pedal edema - Back Exam Back exam: absent: NORMAL INSPECTION (thoracic midline scar) - Neurological Exam Neurological exam: Alert, CN II-XII Intact, Oriented x3 - Psychiatric Exam Psychiatric exam: Normal Affect, Normal Mood - Skin Skin Exam: Dry, Warm Additional comments: Right 4th and left 3rd toe nails absent. Left lower leg erythema with 2 non draining lesion, multiple non healing ulcers on right upper extremity. Results - Vital Signs Recent Vital Signs: Last Vital Signs Temp 100.1 F H 02/23/17 17:47 Pulse 137 H 02/23/17 17:47 Resp 20 02/23/17 18:35 BP 143/89 02/23/17 17:47 Pulse Ox 97 02/23/17 18:35 - Labs Result Diagrams: 02/23/17 17:45 02/23/17 17:45 Assessment & Plan - Assessment and Plan (Free Text) Assessment: 36 year old female with extensive past medical history complains of shortness of breath and coughs likely secondary to COPD exacerbation Plan: Shortness of breath, non productive cough -COPD Exacerbation vs bronchitis vs pharyngitis vs PE -Duonebs 3ml IH q6h vicki -Pulmicort 0.25mg IH Q12h -Brovana 15mcg IH Q12H -Robitussin 100mg po Q4h prn -Supplemental O2 as needed -Resume home CPAP -Xopenex 0.63mg IH TID -Prednisone 60mg PO -Continue singulair and daliresp -Aspiration precaution -Follow up CTA -Follow up procal, blood culture Leukocytosis, fever -Infectious etiology vs chronic steroid use -WBC 17.6, T 100.1 in ED -Multiple non healing ulcers in upper and lower extremities -CXR negative for PNA -Follow up procal, blood culture -ID consulted, Dr. Vera help appreciated Left lower rib pain -No fractures appreciated on CXR -Pending CT -Dilaudid IV 1mg q8h Hx of endocarditis/right atrial mass -Finished 10 week course of daptomycin 6 weeks ago -ID consulted, Dr. Vera help appreciated History of DVT/PE -Continue Xarelto 20 mg po qd -Cardizem 30 mg po tid Diabetes Mellitus type 2 -Humulin high dose ISS -Fingersticks ACHS -Resume Amaryl 4mg PO BID -Consistent carb diet Hypothyroidism -Continue Synthroid 25 mcg po qd Shingles -Continue Valacyclovir 500 mg po bid Restless Leg Syndrome -Continue Ropinirole 1.5 mg po bid Prophylactic measures -Protonix for GI ppx -Xarelto for DVT ppx <Wilber Mckenna P - Last Filed: 02/24/17 06:07> Results - Vital Signs Recent Vital Signs: Last Vital Signs Temp 98.2 F 02/24/17 01:53 Pulse 132 H 02/24/17 02:00 Resp 19 02/24/17 01:53 BP 142/75 02/24/17 00:21 Pulse Ox 97 02/24/17 00:21 - Labs Result Diagrams: 02/23/17 17:45 02/23/17 17:45 Attending/Attestation - Attestation I have personally seen and examined this patient.: Yes I have fully participated in the care of the patient.: Yes I have reviewed all pertinent clinical information: Yes Notes (Text): 02/24/17 06:01 In addition to above patient also has Acquired/Iatrogenic Jennifer syn from being unable to wean off the 60mg/day dose of the prednisone for last 19 yrs, current pain appears left dermatome related with her spine, and probably area of her spine stimulator, CTA was later negative for PE/PNA, but although not read in the overnight CT read but has soft tissue swelling related with lower thoracic spine, for which she was actually schdulled out patient for MRI, will discuss with day radiology if this appears concerning and inpatient w/u. Patient is immunocompromised from jennifer's syn, uncontrolled dm, poor healing , multiple recurrent bacterimia, fungemia.
[2017-02-23 23:11] LABS: IRON 26 ug/dL (45-180)
[2017-02-24] MEDS ORDERED: Insulin Regular 1 UNITS/0.01 ML ML ONE (00:10)
[2017-02-24] MEDS: Insulin Reg-MEDIUM-Coverage SC SCH ×6 (00:20→23:01)
[2017-02-24] MEDS: HYDROmorphone 2 mg/ml ISec IVP PRN ×2 (00:22→12:07)
[2017-02-24] MEDS: Albuterol-Ipratrop 3 mg / 0.5 (3 ml) UD IH SCH ×4 (01:08→19:50)
[2017-02-24] MEDS ORDERED: HYDROmorphone 0.5 mg/0.5 ml ISec IVP STA (05:18)
[2017-02-24 07:05] LABS: BLOOD UREA NITROGEN 15 mg/dL (7-21); CALCIUM 9.5 mg/dL (8.4-10.5); CARBON DIOXIDE 21 mmol/L (21-33); CHLORIDE 99 mmol/L (98-107); GFR AFRICAN-AMERICAN > 60; POTASSIUM 4.6 mmol/L (3.6-5.0); SODIUM 135 mmol/L (132-148)
[2017-02-24 07:10] LABS: BASO # 0.16 K/mm3 (0.0-2.0); BASO % 0.8 % (0.0-3.0); GRAN # 18.94 (1.4-6.5); GRAN % 92.3 % (50.0-68.0); LYMPH # 0.8 (1.2-3.4); LYMPH % 3.7 % (22.0-35.0); MEAN CELL VOLUME 75.4 fL (80.0-105.0); MEAN CORPUSCULAR HEMOGLOBIN 22.2 pg (25.0-35.0); MEAN CORPUSCULAR HGB CONC 29.5 g/dl (31.0-37.0); MEAN PLATELET VOLUME 10.2 fl (7.0-11.0); MONO # 0.7 (0.1-0.6); MONO % 3.2 % (1.0-6.0); PLATELET COUNT 388 10^3/uL (120.0-450.0); RED CELL DISTRIBUTION WIDTH 18.6 % (11.5-14.5); WHITE BLOOD COUNT 20.5 10^3/ul (4.5-11.0)
[2017-02-24 07:21] LABS: ADD MANUAL DIFF? NO
--- NOTE | 2017-02-24 07:26 | RAD ---
HISTORY: cough COMPARISON: Comparison is made to 01/22/2017 FINDINGS: LUNGS: No active pulmonary disease. PLEURA: No significant pleural effusion identified, no pneumothorax apparent. CARDIOVASCULAR: Normal. OSSEOUS STRUCTURES: No significant abnormalities. VISUALIZED UPPER ABDOMEN: Normal. OTHER FINDINGS: None. IMPRESSION: No active disease.
[2017-02-24 07:27] LABS: GLUCOSE,RANDOM 325 mg/dL (70-110)
[2017-02-24] MEDS: Levothyroxine 25 MCG TAB PO SCH (08:00)
[2017-02-24] MEDS: Pantoprazole 40 mg EC Tab PO SCH (08:00)
[2017-02-24] MEDS: Levalbuterol 0.63 MG/3 ML Inhal Soln UD IH SCH ×3 (08:18→19:50)
[2017-02-24] MEDS: Arformoterol 15 mcg/2 ml Inh Sol IH SCH ×2 (08:18→19:50)
[2017-02-24] MEDS: Budesonide 0.25 mg/2 ml Inhal Susp UD IH SCH ×2 (08:29→19:50)
--- NOTE | 2017-02-24 08:50 | CARD ---
APPROVED REPORT EKG Measurement Heart [id number] <Conclusion> Sinus tachycardia Low voltage QRS Cannot rule out Anterior infarct, age undetermined Abnormal ECG
[2017-02-24] MEDS: Ceftaroline 600 MG in Sodium Chloride 0.9% 100 ML IVPB SCH ×2 (09:49→23:02)
--- NOTE | 2017-02-24 16:16 | CON ---
DATE: 02/24/2017 LOCATION: 271, bed 1. REQUESTING PHYSICIAN: Paul Alvares MD CHIEF COMPLAINT: Mid and low back pain. HISTORY OF PRESENT ILLNESS: The patient is a pleasant 36-year-old female who is known to me from out patient and was recently seen in the office for reevaluation and medication refill. She was admitted to [facility] with exacerbation of asthma and COPD, and increasing shortness of breath. The patient stated that with coughing this aggravates her midthoracic pain and low back pain. She is currently taking IV Dilaudid 1 mg q. 8 hours, which she stated that it does help but it does n ot last her 8 hours. The patient was maintained on Dilaudid 4 mg p.o. b.i.d. as an outpatient. Her visual analog scale on today's evaluation is 7/10. PAST MEDICAL AND PAST SURGICAL HISTORY: Asthma, COPD, type 2 diabetes mellitus, hypertension, hypot hyroidism, history of DVT, pulmonary embolism, status post IVC filter, endocarditis, history of spina l cord stimulator with infection and removal of spinal cord stimulator, morbidly obese. The patient has a history of acute vertebral fracture, status post kyphoplasty. ALLERGIES: METFORMIN, LEVOFLOXACIN, ketorolac, dapagliflozin. SOCIAL HISTORY: She is a former smoker. Denied any alcohol or drug abuse. HOME MEDICATIONS: Valtrex, Requip, prednisone, Robitussin, Cardizem, Valium, Daliresp, Xarelto, Prot meme, Singulair, meclizine, Levoxyl, Xopenex, Dilaudid, Amaryl, Neurontin, Cymbalta, Flexeril, vitami n B12 injection. REVIEW OF SYSTEMS: The patient reported cough, wheezing, shortness of breath. She denied any chest pain. She denied any abdominal pain. There is mid and low back pain. She denied any bowel or bladd er dysfunction. PHYSICAL EXAMINATION: GENERAL: The patient is in mild distress. HEENT: She is normocephalic, atraumatic with smith face. Extraocular muscles intact. CARDIOVASCULAR: S1, S2 normal. LUNGS: There are mild wheezes. ABDOMEN: Distended, nontender. NEUROMUSCULAR: She is alert, awake, and oriented x 3, concentrates very well. Cranial nerves II-XII grossly intact. Coordination is grossly intact. There is tenderness over midthoracic and lower lum bar spine. Sensation to light touch is intact in bilateral lower extremities. IMPRESSION: Chronic mid and low back pain, status post multiple compression fractures, status post k yphoplasty and osteoporosis. RECOMMENDATIONS: Will changed Flexeril to 10 mg twice a day scheduled, and instead of p.r.n. will c hange Dilaudid 1 mg IV push to q. 6 hours as needed for moderate to severe pain. Will add Neurontin 300 mg twice a day. Will follow up on the patient. The patient to follow up as an outpatient upon discharge. Thank you for your kind consultation. Wally Menendez MD cc: [phone] TT: 02/24/2017 16:16:01 Confirmation # [id number] Dictation # [id number]
[2017-02-24] MEDS: HYDROmorphone 1 mg/ml ISec IVP PRN (17:55)
--- NOTE | 2017-02-24 18:36 | CP.PCM.CON ---
History of Present Illness - History of Present Illness History of Present Illness: Infectious Disease Consultation: February 24, 2017 36 yo female with multiple hospital[place] [facility] [place] [facility] over the past few years who presents with worsening shortness of breath and cough for one week. Recently completed several courses for possible endocarditis. The patient went to see Dr. Menendez of Pain Management and became short of breath on the way home. The patient had a fever of 102 two days ago. Please note that the patient's did have a severe septic episode in January 2016 that led to intubation and ventilation with severe hypotension. She was not last intubated back in 2003... the last episode of intubation was one year ago. Teflaro started for treatment. Cultures pending. Patient with multiple chronic issues. PMHx: Esophageal dysmotility, hypertension, diabetes mellitus, obstructive sleep apnea , chronic sinusitis, restless leg syndrome, chronic pain syndrome, persistent skin ulceration with infection, morbid obesity, steroid dependent respiratory disease, COPD, degenerative joint disease, chronic back pain, hypothyroidism, DVT, history of pulmonary embolism, chronic fatigue. Has memory lapses since last hospitalization. PSHx: IVC filter placement, multiple PICC lines, prior port placement and then renewal , spinal stimulator placement 16 months ago removed over 4 months ago due to infection, tonsillectomy, nasal polypectomy, right ear surgery. Allergies: Levaquin, morphine, metformin Social History: No tobacco, EtOH, or illicit drug use. Lives with parents. Active Medications Acetaminophen (Tylenol 325mg Tab) 650 mg PO Q6 PRN PRN Reason: Fever >100.4 F Albuterol/Ipratropium (Duoneb 3 Mg/0.5 Mg (3 Ml) Ud) 3 ml IH [id number] [facility] Last Admin: 02/24/17 13:24 Dose: Not Given Arformoterol Tartrate (Brovana) 15 mcg IH [id number] [facility] Last Admin: 02/24/17 08:18 Dose: 15 mcg Budesonide (Pulmicort Respules) 0.25 mg IH [id number] [facility] Last Admin: 02/24/17 08:29 Dose: 0.25 mg Cyclobenzaprine HCl (Flexeril) 10 mg PO Q12 [facility] Diazepam (Valium) 5 mg PO TID [facility] PRN Reason: Protocol Last Admin: 02/24/17 17:55 Dose: 5 mg Diltiazem HCl (Cardizem) 30 mg PO BID [facility] Last Admin: 02/24/17 17:08 Dose: 30 mg Duloxetine HCl (Cymbalta) 60 mg PO DAILY [facility] Last Admin: 02/24/17 09:49 Dose: 60 mg Gabapentin (Neurontin) 300 mg PO TID [facility] PRN Reason: Protocol Last Admin: 02/24/17 18:09 Dose: 300 mg Glimepiride (Amaryl) 4 mg PO 0800,1700 [facility] Last Admin: 02/24/17 17:09 Dose: 4 mg Guaifenesin (Robitussin) 100 mg PO Q4H PRN PRN Reason: Cough Hydromorphone HCl (Dilaudid) 1 mg IVP Q6H PRN PRN Reason: Pain, moderate (4-7) Last Admin: 02/24/17 17:55 Dose: 1 mg Ceftaroline Fosamil 600 mg/ (Sodium Chloride) 100 mls @ 100 mls/hr IVPB Q12 [facility] PRN Reason: Protocol Last Admin: 02/24/17 09:49 Dose: 100 mls/hr Insulin Human Regular (Humulin R Med) 0 units SC ACHS [facility] PRN Reason: Protocol Last Admin: 02/24/17 17:08 Dose: 8 units Levalbuterol HCl (Xopenex) 0.63 mg IH TIDRESP [facility] Last Admin: 02/24/17 13:24 Dose: Not Given Levothyroxine Sodium (Synthroid) 25 mcg PO ACB [facility] Last Admin: 02/24/17 08:00 Dose: 25 mcg Meclizine HCl (Antivert) 25 mg PO Q8 PRN PRN Reason: Dizziness Montelukast Sodium (Singulair) 10 mg PO HS [facility] Pantoprazole Sodium (Protonix Ec Tab) 40 mg PO ACB [facility] Last Admin: 02/24/17 08:00 Dose: 40 mg Prednisone (Prednisone Tab) 60 mg PO DAILY [facility] Last Admin: 02/24/17 09:47 Dose: 60 mg Rivaroxaban (Xarelto) 20 mg PO DAILY [facility] PRN Reason: Protocol Last Admin: 02/24/17 09:48 Dose: 20 mg Roflumilast (Daliresp) 500 mcg PO DAILY [facility] Last Admin: 02/24/17 09:48 Dose: 500 mcg Ropinirole HCl (Requip) 1.5 mg PO BID [facility] Last Admin: 02/24/17 17:09 Dose: 1.5 mg Valacyclovir HCl (Valtrex) 500 mg PO BID [facility] PRN Reason: Protocol Last Admin: 02/24/17 17:09 Dose: 500 mg Family History: Atrial fibrillation in mother. Hypertension in mother. Aneurysm history in family ROS: Chest pain and generalized sharp pains. No diarrhea. No headaches. No dizziness. No vomiting. No melena, hematuria, hematemesis, or hematochezia. No fevers or chills. No depression or anxiety. Past Patient History - Infectious Disease Hx of Infectious Diseases: None - Tetanus Immunizations Tetanus Immunization: Unknown - Past Medical History & Family History Past Medical History?: Yes - Past Social History Smoking Status: Unknown If Ever Smoked - CARDIAC Hx Cardiac Disorders: No - PULMONARY Hx Respiratory Disorders: No - NEUROLOGICAL Hx Dizziness: Yes Hx Migraine: Yes Hx Paralysis: No Hx Vertigo: Yes Other/Comment: Neuropathy - HEENT Hx Cataracts: Yes Hx Deafness: Yes Hx Glaucoma: Yes Other/Comment: parotid gland infection 2 ear sx's, sx for deviated septum - RENAL Hx Renal Failure: Yes - ENDOCRINE/METABOLIC Hx Hyperthyroidism: Yes Hx Hypothyroidism: Yes Other/Comment: h/o DKA - HEMATOLOGICAL/ONCOLOGICAL Hx Anemia: Yes Hx Blood Transfusions: Yes Hx Blood Transfusion Reaction: No Hx Shingles: Yes Other/Comment: 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 - INTEGUMENTARY Hx Cellulitis: Yes (recurrent) Other/Comment: 2 open sores to abd, 2 open sores right let and 2 to left leg 2 open sores to right upper arm, open sore to upper back, surgical scar to mid lower back and left lower back,7cm x 2cm open surgical wound to left abd draining and packing - MUSCULOSKELETAL/RHEUMATOLOGICAL Hx Arthritis: Yes Hx Back Pain: Yes Hx Degenerative Joint Disease: Yes Hx Falls: No Hx Osteoarthritis: Yes Hx Osteomyelitis: Yes Hx Osteoporosis: Yes Hx Unsteady Gait: Yes (uses walker and rollator) Other/Comment: h/o implanted spinal cord stimulator -- was taken out due to infection. Restless leg syndrome - GASTROINTESTINAL Hx Gastroesophageal Reflux: Yes Hx Pancreatitis: Yes Other/Comment: Esophageal Motility Disorder. Diabetic Gastroparesis - GENITOURINARY/GYNECOLOGICAL Hx Incontinence: Yes Hx Reproductive Disorders: No Hx Urinary Tract Infection: Yes Other/Comment: pt report history of yeast infection - PSYCHIATRIC Hx Psychophysiologic Disorder: No Hx Substance Use: No - SURGICAL HISTORY Hx Appendectomy: Yes Hx Cataract Extraction: Yes Hx Cholecystectomy: Yes Hx Dilation and Curettage: Yes Hx Eye Surgery: Yes Hx Hysterectomy: Yes Hx Orthopedic Surgery: Yes (arthroscopic) Hx Vascular Access Device: Yes (port placed and removed) - ANESTHESIA Hx Anesthesia: No Hx Anesthesia Reactions: No Hx Malignant Hyperthermia: No Meds Allergies/Adverse Reactions: Allergies Allergy/AdvReac Type Severity Reaction Status Date / Time ketorolac tromethamine Allergy ANAPHYLAXIS Verified 01/22/17 19:19 [From Toradol] levofloxacin [From Levaquin] Allergy NAUSEA Verified 06/16/16 17:02 metformin Allergy ANAPHYLAXIS Verified 06/16/16 17:02 dapagliflozin propanediol AdvReac .high Verified 06/16/16 17:02 [From Farxiga] blood sugar - Medications Medications: Current Medications Acetaminophen (Tylenol 325mg Tab) 650 mg PO Q6 PRN PRN Reason: Fever >100.4 F Albuterol/Ipratropium (Duoneb 3 Mg/0.5 Mg (3 Ml) Ud) 3 ml IH [id number] [facility] Last Admin: 02/24/17 13:24 Dose: Not Given Arformoterol Tartrate (Brovana) 15 mcg IH [id number] [facility] Last Admin: 02/24/17 08:18 Dose: 15 mcg Budesonide (Pulmicort Respules) 0.25 mg IH [id number] [facility] Last Admin: 02/24/17 08:29 Dose: 0.25 mg Cyclobenzaprine HCl (Flexeril) 10 mg PO Q12 [facility] Diazepam (Valium) 5 mg PO TID [facility] PRN Reason: Protocol Last Admin: 02/24/17 17:55 Dose: 5 mg Diltiazem HCl (Cardizem) 30 mg PO BID [facility] Last Admin: 02/24/17 17:08 Dose: 30 mg Duloxetine HCl (Cymbalta) 60 mg PO DAILY [facility] Last Admin: 02/24/17 09:49 Dose: 60 mg Gabapentin (Neurontin) 300 mg PO TID [facility] PRN Reason: Protocol Last Admin: 02/24/17 18:09 Dose: 300 mg Glimepiride (Amaryl) 4 mg PO 0800,1700 [facility] Last Admin: 02/24/17 17:09 Dose: 4 mg Guaifenesin (Robitussin) 100 mg PO Q4H PRN PRN Reason: Cough Hydromorphone HCl (Dilaudid) 1 mg IVP Q6H PRN PRN Reason: Pain, moderate (4-7) Last Admin: 02/24/17 17:55 Dose: 1 mg Ceftaroline Fosamil 600 mg/ (Sodium Chloride) 100 mls @ 100 mls/hr IVPB Q12 [facility] PRN Reason: Protocol Last Admin: 02/24/17 09:49 Dose: 100 mls/hr Insulin Human Regular (Humulin R Med) 0 units SC ACHS [facility] PRN Reason: Protocol Last Admin: 02/24/17 17:08 Dose: 8 units Levalbuterol HCl (Xopenex) 0.63 mg IH TIDRESP [facility] Last Admin: 02/24/17 13:24 Dose: Not Given Levothyroxine Sodium (Synthroid) 25 mcg PO ACB [facility] Last Admin: 02/24/17 08:00 Dose: 25 mcg Meclizine HCl (Antivert) 25 mg PO Q8 PRN PRN Reason: Dizziness Montelukast Sodium (Singulair) 10 mg PO HS [facility] Pantoprazole Sodium (Protonix Ec Tab) 40 mg PO ACB [facility] Last Admin: 02/24/17 08:00 Dose: 40 mg Prednisone (Prednisone Tab) 60 mg PO DAILY [facility] Last Admin: 02/24/17 09:47 Dose: 60 mg Rivaroxaban (Xarelto) 20 mg PO DAILY [facility] PRN Reason: Protocol Last Admin: 02/24/17 09:48 Dose: 20 mg Roflumilast (Daliresp) 500 mcg PO DAILY [facility] Last Admin: 02/24/17 09:48 Dose: 500 mcg Ropinirole HCl (Requip) 1.5 mg PO BID [facility] Last Admin: 02/24/17 17:09 Dose: 1.5 mg Valacyclovir HCl (Valtrex) 500 mg PO BID [facility] PRN Reason: Protocol Last Admin: 02/24/17 17:09 Dose: 500 mg Physical Exam - Constitutional Appears: Non-toxic, No Acute Distress, Chronically Ill - Head Exam Head Exam: ATRAUMATIC, NORMOCEPHALIC - Eye Exam Eye Exam: EOMI, PERRL Pupil Exam: NORMAL ACCOMODATION, PERRL - ENT Exam ENT Exam: Mucous Membranes Moist, Normal External Ear Exam, TM's Normal Bilaterally Additional comments: mild yellow exudate in throat. - Neck Exam Neck exam: Positive for: Full Rom, Normal Inspection - Respiratory Exam Respiratory Exam: Clear to Auscultation Bilateral, NORMAL BREATHING PATTERN. absent: Rales, Rhonchi, Wheezes - Cardiovascular Exam Cardiovascular Exam: REGULAR RHYTHM, RRR, +S1, +S2 - GI/Abdominal Exam GI & Abdominal Exam: Normal Bowel Sounds, Soft. absent: Distended, Tenderness - Extremities Exam Extremities exam: Positive for: full ROM, normal inspection - Neurological Exam Neurological exam: Alert, CN II-XII Intact, Oriented x3 - Skin Additional comments: Right 4th and left 3rd toe nails absent. Left lower leg erythema with 2 non draining lesion, multiple non healing ulcers on right upper extremity. blood around the big toes bilaterally. Results - Vital Signs Recent Vital Signs: Last Vital Signs Temp 97.4 F L 02/24/17 17:33 Pulse 117 H 02/24/17 17:33 Resp 20 02/24/17 17:33 BP 135/86 02/24/17 17:33 Pulse Ox 97 02/24/17 05:56 - Labs Result Diagrams: 02/24/17 06:00 02/24/17 06:00 Labs: Laboratory Results - last 24 hr 02/24/17 02/24/17 06:00 06:00 WBC 20.5 H RBC 4.91 Hgb 10.9 L Hct 37.0 MCV 75.4 L MCH 22.2 L MCHC 29.5 L RDW 18.6 H Plt Count 388 MPV 10.2 Gran % 92.3 H Lymph % (Auto) 3.7 L Harding % (Auto) 3.2 Eos % (Auto) 0.0 L Baso % (Auto) 0.8 Gran # 18.94 H Lymph # 0.8 L Harding # 0.7 H Eos # 0.0 Baso # 0.16 Sodium 135 Potassium 4.6 Chloride 99 Carbon Dioxide 21 Anion Gap 20 BUN 15 Creatinine 0.4 L Est GFR ( Amer) > 60 Est GFR (Non-Af Amer) > 60 Random Glucose 325 H* Calcium 9.5 Assessment & Plan - Assessment and Plan (Free Text) Assessment: 36 yo female with shortness of breath and non-productive cough with multiple chronic medical issues. The patient was found to have leukocytosis and low grade fever up to 100.1 F. Chest X-ray did not exhibit findings for a pneumonia. Started on Teflaro for now for antibiotic coverage. Multiple chronic wounds that have been slow to heal overall. Supportive care. Patient has multiple medical issues including obesity, hypothyroidism, hypertension, chronic steroid use. Awaiting culture results. Thank you for allowing me to participate in the care of the patient, we will follow with you.
[2017-02-24 21:42] LABS: TROPONIN I 0.01 ng/mL
[2017-02-25] MEDS: HYDROmorphone 1 mg/ml ISec IVP PRN ×4 (00:02→21:44)
[2017-02-25] MEDS: Albuterol-Ipratrop 3 mg / 0.5 (3 ml) UD IH SCH ×4 (02:00→21:20)
[2017-02-25 06:00] LABS: HEMATOCRIT 35.3 % (36.0-48.0); MEAN CELL VOLUME 76.2 fL (80.0-105.0); MEAN CORPUSCULAR HEMOGLOBIN 22.7 pg (25.0-35.0); MEAN CORPUSCULAR HGB CONC 29.7 g/dl (31.0-37.0); MEAN PLATELET VOLUME 10.1 fl (7.0-11.0); PLATELET COUNT 383 10^3/uL (120.0-450.0); RED CELL DISTRIBUTION WIDTH 18.7 % (11.5-14.5); WHITE BLOOD COUNT 16.7 10^3/ul (4.5-11.0)
[2017-02-25 06:18] LABS: ADD MANUAL DIFF? YES
[2017-02-25 06:50] LABS: ALB/GLOB RATIO 1.4 (1.1-1.8); ALKALINE PHOSPHATASE 55 U/L (38-133); ALT/SGPT 43 U/L (7-56); AST/SGOT 23 U/L (15-39); BILIRUBIN,TOTAL 0.5 mg/dL (0.2-1.3); BLOOD UREA NITROGEN 16 mg/dL (7-21); CALCIUM 9.1 mg/dL (8.4-10.5); CARBON DIOXIDE 23 mmol/L (21-33); CHLORIDE 102 mmol/L (98-107); GFR AFRICAN-AMERICAN > 60; GLUCOSE,RANDOM 219 mg/dL (70-110); POTASSIUM 3.4 mmol/L (3.6-5.0); SODIUM 138 mmol/L (132-148); TOTAL PROTEIN 7.2 g/dL (5.8-8.3)
[2017-02-25 06:51] LABS: TROPONIN I 0.02 ng/mL
[2017-02-25 07:06] LABS: BAND 4 % (0-2); NEUTROPHIL 73 % (50.0-70.0)
[2017-02-25 07:07] LABS: ANISOCYTOSIS 1+; BASOPHIL 1 % (0.0-1.0); METAMYELOCYTE 1 %; MYELOCYTE 5 %; NUCLEATED RED BLOOD CELL 1 %; PLATELET ESTIMATE NORMAL (NORMAL); POIKILOCYTOSIS SLIGHT
[2017-02-25] MEDS: Pantoprazole 40 mg EC Tab PO SCH (08:12)
[2017-02-25] MEDS: Arformoterol 15 mcg/2 ml Inh Sol IH SCH ×2 (08:17→21:20)
[2017-02-25] MEDS: Budesonide 0.25 mg/2 ml Inhal Susp UD IH SCH ×2 (08:18→21:20)
[2017-02-25] MEDS: Levothyroxine 25 MCG TAB PO SCH (08:19)
[2017-02-25] MEDS: Insulin Reg-MEDIUM-Coverage SC SCH ×4 (08:29→21:42)
[2017-02-25] MEDS ORDERED: Potassium Chloride 40 mEq/30 ml LIQ UD PO ONE (09:08)
[2017-02-25] MEDS: Ceftaroline 600 MG in Sodium Chloride 0.9% 100 ML IVPB SCH ×2 (09:50→21:00)
[2017-02-25] MEDS: Nystatin 100,000 Units/gm Topical Pow(15 gm) TOP SCH (10:13)
--- NOTE | 2017-02-25 15:32 | CP.PCM.PN ---
Subjective - Date & Time of Evaluation Date of Evaluation: 02/25/17 Time of Evaluation: 14:45 - Subjective Subjective: Infectious Disease Follow Up: February 25, 2017 36 yo female with multiple hospitalizations to both [facility] [place] [facility] [place] over the past few years who presents with worsening shortness of breath and cough for one week. Recently completed several courses for possible endocarditis. The patient went to see Dr. Menendez of Pain Management and became short of breath on the way home. The patient had a fever of 102 two days ago. Please note that the patient's did have a severe septic episode in January 2016 that led to intubation and ventilation with severe hypotension. She was not last intubated back in 2003... the last episode of intubation was one year ago. Teflaro started for treatment. Cultures pending. Patient with multiple chronic issues. Cultures so far are negative. Objective - Vital Signs/Intake and Output Vital Signs (last 24 hours): Temp Pulse Resp BP Pulse Ox 98.4 F 119 H 17 141/81 96 02/25/17 12:43 02/25/17 14:00 02/25/17 12:43 02/25/17 12:43 02/25/17 06:00 Intake and Output: 02/25/17 02/25/17 06:59 18:59 Intake Total 580 Balance 580 - Medications Medications: Current Medications Acetaminophen (Tylenol 325mg Tab) 650 mg PO Q6 PRN PRN Reason: Fever >100.4 F Albuterol/Ipratropium (Duoneb 3 Mg/0.5 Mg (3 Ml) Ud) 3 ml IH [id number] [facility] Last Admin: 02/25/17 15:01 Dose: 3 ml Arformoterol Tartrate (Brovana) 15 mcg IH [id number] [facility] Last Admin: 02/25/17 08:17 Dose: 15 mcg Budesonide (Pulmicort Respules) 0.25 mg IH [id number] [facility] Last Admin: 02/25/17 08:18 Dose: 0.25 mg Cyclobenzaprine HCl (Flexeril) 10 mg PO Q12 [facility] Last Admin: 02/25/17 09:45 Dose: 10 mg Diazepam (Valium) 5 mg PO TID [facility] PRN Reason: Protocol Last Admin: 02/25/17 09:48 Dose: 5 mg Diltiazem HCl (Cardizem) 30 mg PO BID [facility] Last Admin: 02/25/17 09:53 Dose: 30 mg Duloxetine HCl (Cymbalta) 60 mg PO DAILY [facility] Last Admin: 02/25/17 09:49 Dose: 60 mg Gabapentin (Neurontin) 300 mg PO TID [facility] PRN Reason: Protocol Last Admin: 02/25/17 09:48 Dose: 300 mg Glimepiride (Amaryl) 4 mg PO 0800,1700 [facility] Last Admin: 02/25/17 08:11 Dose: 4 mg Guaifenesin (Robitussin) 100 mg PO Q4H PRN PRN Reason: Cough Hydromorphone HCl (Dilaudid) 1 mg IVP Q6H PRN PRN Reason: Pain, moderate (4-7) Last Admin: 02/25/17 08:19 Dose: 1 mg Ceftaroline Fosamil 600 mg/ (Sodium Chloride) 100 mls @ 100 mls/hr IVPB Q12 [facility] PRN Reason: Protocol Last Admin: 02/25/17 09:50 Dose: 100 mls/hr Insulin Human Regular (Humulin R Med) 0 units SC ACHS [facility] PRN Reason: Protocol Last Admin: 02/25/17 13:07 Dose: 1 units Levalbuterol HCl (Xopenex) 0.63 mg IH TIDRESP [facility] Last Admin: 02/24/17 19:50 Dose: 0.63 mg Levothyroxine Sodium (Synthroid) 25 mcg PO ACB [facility] Last Admin: 02/25/17 08:19 Dose: 25 mcg Meclizine HCl (Antivert) 25 mg PO Q8 PRN PRN Reason: Dizziness Montelukast Sodium (Singulair) 10 mg PO HS [facility] Last Admin: 02/24/17 23:02 Dose: 10 mg Nystatin (Nystop Topical Powder) 0 gm TOP DAILY [facility] Last Admin: 02/25/17 10:13 Dose: 1 applic Pantoprazole Sodium (Protonix Ec Tab) 40 mg PO ACB [facility] Last Admin: 02/25/17 08:12 Dose: 40 mg Prednisone (Prednisone Tab) 60 mg PO DAILY [facility] Last Admin: 02/25/17 09:47 Dose: 60 mg Rivaroxaban (Xarelto) 20 mg PO DAILY [facility] PRN Reason: Protocol Last Admin: 02/25/17 09:48 Dose: 20 mg Roflumilast (Daliresp) 500 mcg PO DAILY [facility] Last Admin: 02/25/17 09:55 Dose: 500 mcg Ropinirole HCl (Requip) 1.5 mg PO BID [facility] Last Admin: 02/25/17 09:44 Dose: 1.5 mg Valacyclovir HCl (Valtrex) 500 mg PO BID [facility] PRN Reason: Protocol Last Admin: 02/25/17 10:25 Dose: 500 mg - Labs Labs: 02/25/17 05:45 02/25/17 05:45 PT 9.9 Seconds (9.9-11.8) 02/23/17 17:45 INR 0.92 (0.93-1.08) L 02/23/17 17:45 APTT 23.9 Seconds (23.7-30.8) 02/23/17 17:45 - Constitutional Appears: Non-toxic, No Acute Distress, Chronically Ill - Head Exam Head Exam: ATRAUMATIC, NORMOCEPHALIC - Eye Exam Eye Exam: EOMI, PERRL Pupil Exam: NORMAL ACCOMODATION, PERRL - ENT Exam ENT Exam: Mucous Membranes Moist, Normal External Ear Exam, TM's Normal Bilaterally - Neck Exam Neck Exam: Full ROM, Normal Inspection - Respiratory Exam Respiratory Exam: Decreased Breath Sounds, NORMAL BREATHING PATTERN. absent: Rales, Rhonchi, Wheezes - Cardiovascular Exam Cardiovascular Exam: REGULAR RHYTHM, RRR, +S1, +S2 - GI/Abdominal Exam GI & Abdominal Exam: Soft, Normal Bowel Sounds. absent: Distended, Tenderness - Extremities Exam Extremities Exam: Full ROM, Normal Inspection - Neurological Exam Neurological Exam: Alert, Awake, CN II-XII Intact, Oriented x3 - Psychiatric Exam Psychiatric exam: Normal Affect, Normal Mood - Skin Skin Exam: Normal Color Additional comments: Multiple abrasions and scabs. Recent removal of PICC line from right upper arm. Right 4th and left 3rd toe nails absent. Left lower leg erythema with 2 non draining lesion, multiple non healing ulcers on right upper extremity. blood around the big toes bilaterally. Assessment and Plan - Assessment and Plan (Free Text) Assessment: 36 yo female with shortness of breath and non-productive cough with multiple chronic medical issues. The patient was found to have leukocytosis and low grade fever up to 100.1 F. Chest X-ray did not exhibit findings for a pneumonia. Started on Teflaro for now for antibiotic coverage. Multiple chronic wounds that have been slow to heal overall. Supportive care. Patient has multiple medical issues including obesity, hypothyroidism, hypertension, chronic steroid use. Awaiting culture results - negative so far. Thank you for allowing me to participate in the care of the patient, we will follow with you.
--- NOTE | 2017-02-25 16:07 | CT ---
PROCEDURE: CT Chest with contrast (Pulmonary Angiogram) HISTORY: r/o PE COMPARISON: Comparison is made to the previous study dated 06/06/2016 TECHNIQUE: Axial computed tomography images were obtained of the chest in the pulmonary arterial phase of enhancement. Coronal and sagittal reformatted images were created and reviewed. Intravenous contrast dose: 100 mL Visipaque Radiation dose: Total exam DLP = 857.19 mGy-cm. This CT exam was performed using one or more of the following dose reduction techniques: Automated exposure control, adjustment of the mA and/or kV according to patient size, and/or use of iterative reconstruction technique. FINDINGS: PULMONARY ARTERIES: Unremarkable. No pulmonary embolism. AORTA: No acute findings. No thoracic aortic aneurysm. LUNGS: No evidence of acute pathology. No nodule, mass or pulmonary consolidation. PLEURAL SPACES: Unremarkable. No effusion or pneuomothorax. HEART: Unremarkable. No cardiomegaly. No significant pericardial effusion. LYMPH NODES: No lymphadenopathy. BONES, CHEST WALL: Unremarkable. No fracture or destructive lesion OTHER FINDINGS: Subcutaneous density seen at the level of T7 of uncertain etiology. IMPRESSION: Unremarkable CT pulmonary angiogram. No pulmonary embolus. No evidence of acute pulmonary disease. Suboptimal study due to patient's motion and patient's body habitus. Preliminary report was submitted by virtual Radiology.
--- NOTE | 2017-02-25 16:20 | CP.PCM.PN ---
<Rachel Hess - Last Filed: 02/25/17 16:49> Subjective - Date & Time of Evaluation Date of Evaluation: 02/25/17 Time of Evaluation: 07:35 - Subjective Subjective: Pt seen and evaluated at bedside. Pt c/o chronic back complaint. Otherwise, no current SOB, N/V, urinary changes. Afebrile overnight. Objective - Vital Signs/Intake and Output Vital Signs (last 24 hours): Temp Pulse Resp BP Pulse Ox 98.4 F 119 H 17 141/81 96 02/25/17 12:43 02/25/17 14:00 02/25/17 12:43 02/25/17 12:43 02/25/17 06:00 Intake and Output: 02/25/17 02/25/17 06:59 18:59 Intake Total 580 Balance 580 - Medications Medications: Current Medications Acetaminophen (Tylenol 325mg Tab) 650 mg PO Q6 PRN PRN Reason: Fever >100.4 F Albuterol/Ipratropium (Duoneb 3 Mg/0.5 Mg (3 Ml) Ud) 3 ml IH [id number] [facility] Last Admin: 02/25/17 15:01 Dose: 3 ml Arformoterol Tartrate (Brovana) 15 mcg IH [id number] [facility] Last Admin: 02/25/17 08:17 Dose: 15 mcg Budesonide (Pulmicort Respules) 0.25 mg IH [id number] [facility] Last Admin: 02/25/17 08:18 Dose: 0.25 mg Cyclobenzaprine HCl (Flexeril) 10 mg PO Q12 [facility] Last Admin: 02/25/17 09:45 Dose: 10 mg Diazepam (Valium) 5 mg PO TID [facility] PRN Reason: Protocol Last Admin: 02/25/17 15:26 Dose: 5 mg Diltiazem HCl (Cardizem) 30 mg PO BID [facility] Last Admin: 02/25/17 09:53 Dose: 30 mg Duloxetine HCl (Cymbalta) 60 mg PO DAILY [facility] Last Admin: 02/25/17 09:49 Dose: 60 mg Gabapentin (Neurontin) 300 mg PO TID [facility] PRN Reason: Protocol Last Admin: 02/25/17 15:27 Dose: 300 mg Glimepiride (Amaryl) 4 mg PO 0800,1700 [facility] Last Admin: 02/25/17 08:11 Dose: 4 mg Guaifenesin (Robitussin) 100 mg PO Q4H PRN PRN Reason: Cough Hydromorphone HCl (Dilaudid) 1 mg IVP Q6H PRN PRN Reason: Pain, moderate (4-7) Last Admin: 02/25/17 15:36 Dose: 1 mg Ceftaroline Fosamil 600 mg/ (Sodium Chloride) 100 mls @ 100 mls/hr IVPB Q12 [facility] PRN Reason: Protocol Last Admin: 02/25/17 09:50 Dose: 100 mls/hr Insulin Human Regular (Humulin R Med) 0 units SC ACHS [facility] PRN Reason: Protocol Last Admin: 02/25/17 13:07 Dose: 1 units Levalbuterol HCl (Xopenex) 0.63 mg IH TIDRESP [facility] Last Admin: 02/24/17 19:50 Dose: 0.63 mg Levothyroxine Sodium (Synthroid) 25 mcg PO ACB [facility] Last Admin: 02/25/17 08:19 Dose: 25 mcg Meclizine HCl (Antivert) 25 mg PO Q8 PRN PRN Reason: Dizziness Montelukast Sodium (Singulair) 10 mg PO HS [facility] Last Admin: 02/24/17 23:02 Dose: 10 mg Nystatin (Nystop Topical Powder) 0 gm TOP DAILY [facility] Last Admin: 02/25/17 10:13 Dose: 1 applic Pantoprazole Sodium (Protonix Ec Tab) 40 mg PO ACB [facility] Last Admin: 02/25/17 08:12 Dose: 40 mg Prednisone (Prednisone Tab) 60 mg PO DAILY [facility] Last Admin: 02/25/17 09:47 Dose: 60 mg Rivaroxaban (Xarelto) 20 mg PO DAILY [facility] PRN Reason: Protocol Last Admin: 02/25/17 09:48 Dose: 20 mg Roflumilast (Daliresp) 500 mcg PO DAILY [facility] Last Admin: 02/25/17 09:55 Dose: 500 mcg Ropinirole HCl (Requip) 1.5 mg PO BID [facility] Last Admin: 02/25/17 09:44 Dose: 1.5 mg Valacyclovir HCl (Valtrex) 500 mg PO BID [facility] PRN Reason: Protocol Last Admin: 02/25/17 10:25 Dose: 500 mg - Labs Labs: 02/25/17 05:45 02/25/17 05:45 PT 9.9 Seconds (9.9-11.8) 02/23/17 17:45 INR 0.92 (0.93-1.08) L 02/23/17 17:45 APTT 23.9 Seconds (23.7-30.8) 02/23/17 17:45 - Constitutional Appears: Non-toxic, No Acute Distress - Head Exam Head Exam: ATRAUMATIC, NORMOCEPHALIC - Eye Exam Eye Exam: EOMI, Normal appearance - ENT Exam ENT Exam: Mucous Membranes Moist, Normal Exam - Respiratory Exam Respiratory Exam: Clear to Ausculation Bilateral, NORMAL BREATHING PATTERN - Cardiovascular Exam Cardiovascular Exam: Tachycardia, +S1, +S2 - GI/Abdominal Exam GI & Abdominal Exam: Soft. absent: Tenderness - Exam External exam: Erythema. absent: Ecchymosis Additional comments: three small areas of R medial arm erythema without induration or D/C. LLE with 6cm area closed area of erythema without induration or D/C. - Extremities Exam Extremities Exam: absent: Pedal Edema, Tenderness - Neurological Exam Neurological Exam: Alert, Awake - Psychiatric Exam Psychiatric exam: Normal Affect, Normal Mood - Skin Skin Exam: Normal Color, Warm Assessment and Plan - Assessment and Plan (Free Text) Plan: 36 year old female with extensive past medical history complains of shortness of breath and coughs likely secondary to COPD exacerbation Plan: Shortness of breath, non productive cough -COPD Exacerbation vs bronchitis vs pharyngitis vs PE -Duonebs 3ml IH q6h venessa -Pulmicort 0.25mg IH Q12h -Brovana 15mcg IH Q12H -Robitussin 100mg po Q4h prn -Supplemental O2 as needed -Resume home CPAP -Xopenex 0.63mg IH TID -Prednisone 60mg PO -Continue singulair and daliresp -Aspiration precaution -CTA, negative for PE -procal wnl, blood culture negative for growth at 24 hours Leukocytosis, fever -Infectious etiology vs chronic steroid use -WBC 17.6, T 100.1 in ED, wbc 16.7 and afebrile today -Multiple non healing ulcers in upper and lower extremities -CXR negative for PNA -Follow up procal, blood culture -ID consulted, Dr. Vera help appreciated Left lower rib pain -No fractures appreciated on CXR -Dilaudid IV 1mg q8h Hx of endocarditis/right atrial mass -Finished 10 week course of daptomycin 6 weeks ago -ID consulted, Dr. Vera help appreciated History of DVT/PE -Continue Xarelto 20 mg po qd -Cardizem 30 mg po tid Diabetes Mellitus type 2 -Humulin high dose ISS -Fingersticks ACHS -Resume Amaryl 4mg PO BID -Consistent carb diet Hypothyroidism -Continue Synthroid 25 mcg po qd Shingles -Continue Valacyclovir 500 mg po bid Restless Leg Syndrome -Continue Ropinirole 1.5 mg po bid LE swelling: B/L venous dopplers negative Prophylactic measures -Protonix for GI ppx -Xarelto for DVT ppx <Paul Alvares - Last Filed: 02/25/17 16:56> Objective - Vital Signs/Intake and Output Vital Signs (last 24 hours): Temp Pulse Resp BP Pulse Ox 98.4 F 119 H 17 141/81 96 02/25/17 12:43 02/25/17 14:00 02/25/17 12:43 02/25/17 12:43 02/25/17 06:00 Intake and Output: 02/25/17 02/25/17 06:59 18:59 Intake Total 580 Balance 580 - Medications Medications: Current Medications Acetaminophen (Tylenol 325mg Tab) 650 mg PO Q6 PRN PRN Reason: Fever >100.4 F Albuterol/Ipratropium (Duoneb 3 Mg/0.5 Mg (3 Ml) Ud) 3 ml IH [id number] [facility] Last Admin: 02/25/17 15:01 Dose: 3 ml Arformoterol Tartrate (Brovana) 15 mcg IH [id number] [facility] Last Admin: 02/25/17 08:17 Dose: 15 mcg Budesonide (Pulmicort Respules) 0.25 mg IH [id number] [facility] Last Admin: 02/25/17 08:18 Dose: 0.25 mg Cyclobenzaprine HCl (Flexeril) 10 mg PO Q12 [facility] Last Admin: 02/25/17 09:45 Dose: 10 mg Diazepam (Valium) 5 mg PO TID [facility] PRN Reason: Protocol Last Admin: 02/25/17 15:26 Dose: 5 mg Diltiazem HCl (Cardizem) 30 mg PO BID [facility] Last Admin: 02/25/17 09:53 Dose: 30 mg Duloxetine HCl (Cymbalta) 60 mg PO DAILY [facility] Last Admin: 02/25/17 09:49 Dose: 60 mg Gabapentin (Neurontin) 300 mg PO TID [facility] PRN Reason: Protocol Last Admin: 02/25/17 15:27 Dose: 300 mg Glimepiride (Amaryl) 4 mg PO 0800,1700 [facility] Last Admin: 02/25/17 08:11 Dose: 4 mg Guaifenesin (Robitussin) 100 mg PO Q4H PRN PRN Reason: Cough Hydromorphone HCl (Dilaudid) 1 mg IVP Q6H PRN PRN Reason: Pain, moderate (4-7) Last Admin: 02/25/17 15:36 Dose: 1 mg Ceftaroline Fosamil 600 mg/ (Sodium Chloride) 100 mls @ 100 mls/hr IVPB Q12 [facility] PRN Reason: Protocol Last Admin: 02/25/17 09:50 Dose: 100 mls/hr Insulin Human Regular (Humulin R Med) 0 units SC ACHS [facility] PRN Reason: Protocol Last Admin: 02/25/17 13:07 Dose: 1 units Levalbuterol HCl (Xopenex) 0.63 mg IH TIDRESP [facility] Last Admin: 02/24/17 19:50 Dose: 0.63 mg Levothyroxine Sodium (Synthroid) 25 mcg PO ACB [facility] Last Admin: 02/25/17 08:19 Dose: 25 mcg Meclizine HCl (Antivert) 25 mg PO Q8 PRN PRN Reason: Dizziness Montelukast Sodium (Singulair) 10 mg PO HS [facility] Last Admin: 02/24/17 23:02 Dose: 10 mg Nystatin (Nystop Topical Powder) 0 gm TOP DAILY [facility] Last Admin: 02/25/17 10:13 Dose: 1 applic Pantoprazole Sodium (Protonix Ec Tab) 40 mg PO ACB [facility] Last Admin: 02/25/17 08:12 Dose: 40 mg Prednisone (Prednisone Tab) 60 mg PO DAILY [facility] Last Admin: 02/25/17 09:47 Dose: 60 mg Rivaroxaban (Xarelto) 20 mg PO DAILY [facility] PRN Reason: Protocol Last Admin: 02/25/17 09:48 Dose: 20 mg Roflumilast (Daliresp) 500 mcg PO DAILY [facility] Last Admin: 02/25/17 09:55 Dose: 500 mcg Ropinirole HCl (Requip) 1.5 mg PO BID [facility] Last Admin: 02/25/17 09:44 Dose: 1.5 mg Valacyclovir HCl (Valtrex) 500 mg PO BID [facility] PRN Reason: Protocol Last Admin: 02/25/17 10:25 Dose: 500 mg - Labs Labs: 02/25/17 05:45 02/25/17 05:45 PT 9.9 Seconds (9.9-11.8) 02/23/17 17:45 INR 0.92 (0.93-1.08) L 02/23/17 17:45 APTT 23.9 Seconds (23.7-30.8) 02/23/17 17:45 Attending/Attestation - Attestation I have personally seen and examined this patient.: Yes I have fully participated in the care of the patient.: Yes I have reviewed all pertinent clinical information, including history, physical exam and plan: Yes Notes (Text): 02/25/17 16:52 36 year old female with extensive past medical history who presented with complaint of cough and shortness of breath likely secondary to acute bronchitis which has improved. She is on duonebs and chronic po steroids. CT chest was negative. She was also found to have SIRS (tachycardia, low grade temp, and leukocytosis) on admission. She has multiple chronic non-healing ulcers on her extremities. She is on iv antibiotics as per ID while awaiting cultures, which are so far negative to date. LE doppler is ordered to rule out DVT for LE swelling. She is being followed by pain management for chronic pain. Continue with home medications for diabetes, hypothyroidism and COPD. She is on anticoagulation for history of DVT/PE. Paul Alvares MD Hospitalist.
[2017-02-25 17:27] VITALS: RESP 20
--- NOTE | 2017-02-25 17:51 | US ---
HISTORY: Leg pain and swelling. Evaluate for DVT PHYSICIAN(S): Santos Bishop MD. TECHNIQUE: Duplex sonography and color-flow Doppler with graded compression were used to evaluate the deep venous systems of both lower extremities. FINDINGS: The visualized deep venous systems of both lower extremities are sonographically normal and compressible. Normal wave forms and augmentation are seen. There is no sonographic evidence for deep venous thrombosis in the visualized segments of both lower extremities. IMPRESSION: No sonographic evidence for deep venous thrombosis in the visualized segments of both lower extremities.
[2017-02-25] MEDS: Levalbuterol 0.63 MG/3 ML Inhal Soln UD IH SCH (21:20)
[2017-02-26] MEDS: Albuterol-Ipratrop 3 mg / 0.5 (3 ml) UD IH SCH ×3 (02:30→13:34)
[2017-02-26] MEDS: HYDROmorphone 1 mg/ml ISec IVP PRN ×3 (04:03→17:17)
[2017-02-26] MEDS: Levalbuterol 0.63 MG/3 ML Inhal Soln UD IH SCH (07:27)
[2017-02-26] MEDS: Arformoterol 15 mcg/2 ml Inh Sol IH SCH (07:27)
[2017-02-26] MEDS: Budesonide 0.25 mg/2 ml Inhal Susp UD IH SCH (07:27)
[2017-02-26 07:32] LABS: ADD MANUAL DIFF? NO
[2017-02-26 07:37] LABS: BASO % 0.7 % (0.0-3.0); EOS # 0.3 (0.0-0.7); EOS % 2.2 % (1.5-5.0); GRAN # 11.08 (1.4-6.5); GRAN % 73.2 % (50.0-68.0); HEMATOCRIT 33.8 % (36.0-48.0); MEAN CELL VOLUME 76.8 fL (80.0-105.0); MEAN CORPUSCULAR HEMOGLOBIN 22.5 pg (25.0-35.0); MEAN CORPUSCULAR HGB CONC 29.3 g/dl (31.0-37.0); MEAN PLATELET VOLUME 9.9 fl (7.0-11.0); MONO # 1.6 (0.1-0.6); MONO % 10.9 % (1.0-6.0); PLATELET COUNT 355 10^3/uL (120.0-450.0); RED CELL DISTRIBUTION WIDTH 18.7 % (11.5-14.5); WHITE BLOOD COUNT 15.1 10^3/ul (4.5-11.0)
[2017-02-26 07:51] LABS: ALB/GLOB RATIO 1.3 (1.1-1.8); ALKALINE PHOSPHATASE 48 U/L (38-133); ALT/SGPT 52 U/L (7-56); AST/SGOT 27 U/L (15-39); BILIRUBIN,TOTAL 0.6 mg/dL (0.2-1.3); BLOOD UREA NITROGEN 17 mg/dL (7-21); CALCIUM 8.6 mg/dL (8.4-10.5); CARBON DIOXIDE 27 mmol/L (21-33); CHLORIDE 103 mmol/L (98-107); GFR AFRICAN-AMERICAN > 60; GLUCOSE,RANDOM 122 mg/dL (70-110); POTASSIUM 3.6 mmol/L (3.6-5.0); SODIUM 140 mmol/L (132-148); TOTAL PROTEIN 6.7 g/dL (5.8-8.3)
[2017-02-26] MEDS: Insulin Reg-MEDIUM-Coverage SC SCH ×3 (08:01→16:25)
[2017-02-26] MEDS: Levothyroxine 25 MCG TAB PO SCH (08:45)
[2017-02-26] MEDS: Pantoprazole 40 mg EC Tab PO SCH (08:45)
[2017-02-26] MEDS ORDERED: Insulin Detemir 100 units/ml Vial (Levemir) SC SCH (10:00)
[2017-02-26] MEDS: Ceftaroline 600 MG in Sodium Chloride 0.9% 100 ML IVPB SCH (10:30)
[2017-02-26] MEDS: Nystatin 100,000 Units/gm Topical Pow(15 gm) TOP SCH (10:32)
--- NOTE | 2017-02-26 14:05 | CP.PCM.DIS ---
<Rachel Hess - Last Filed: 02/26/17 17:10> Provider - Provider Date of Admission: 02/23/17 20:02 Attending physician: Paul Alvares MD Primary care physician: Gorge Olguin MD Consults: Dr. Roberto Vera, Dr. Dsouza, Time Spent in preparation of Discharge (in minutes): 25 Hospital Course - Lab Results Lab Results: Most Recent Lab Values WBC 15.1 10^3/ul (4.5-11.0) H 02/26/17 06:30 RBC 4.40 10^6/uL (3.5-6.1) 02/26/17 06:30 Hgb 9.9 gm/dL (12.0-16.0) L 02/26/17 06:30 Hct 33.8 % (36.0-48.0) L 02/26/17 06:30 MCV 76.8 fL (80.0-105.0) L 02/26/17 06:30 MCH 22.5 pg (25.0-35.0) L 02/26/17 06:30 MCHC 29.3 g/dl (31.0-37.0) L 02/26/17 06:30 RDW 18.7 % (11.5-14.5) H 02/26/17 06:30 Plt Count 355 10^3/uL (120.0-450.0) 02/26/17 06:30 MPV 9.9 fl (7.0-11.0) 02/26/17 06:30 Gran % 73.2 % (50.0-68.0) H 02/26/17 06:30 Lymph % (Auto) 13.0 % (22.0-35.0) L 02/26/17 06:30 Major % (Auto) 10.9 % (1.0-6.0) H 02/26/17 06:30 Eos % (Auto) 2.2 % (1.5-5.0) 02/26/17 06:30 Baso % (Auto) 0.7 % (0.0-3.0) 02/26/17 06:30 Gran # 11.08 (1.4-6.5) H 02/26/17 06:30 Lymph # 2.0 (1.2-3.4) 02/26/17 06:30 Major # 1.6 (0.1-0.6) H 02/26/17 06:30 Eos # 0.3 (0.0-0.7) 02/26/17 06:30 Baso # 0.10 K/mm3 (0.0-2.0) 02/26/17 06:30 Neutrophils % (Manual) 73 % (50.0-70.0) H 02/25/17 05:45 Band Neutrophils % 4 % (0-2) H 02/25/17 05:45 Lymphocytes % (Manual) 5 % (22.0-35.0) L 02/25/17 05:45 Monocytes % (Manual) 11 % (1.0-6.0) H 02/25/17 05:45 Eosinophils % (Manual) 1 % (0.0-3.0) 02/23/17 17:45 Basophils % (Manual) 1 % (0.0-1.0) 02/25/17 05:45 Metamyelocytes % 1 % 02/25/17 05:45 Myelocytes % 5 % 02/25/17 05:45 Nucleated RBC % 1 % 02/25/17 05:45 Platelet Evaluation Normal (NORMAL) 02/25/17 05:45 Polychromasia Slight 02/23/17 17:45 Hypochromasia 1+ 02/23/17 17:45 Poikilocytosis (manual Slight 02/25/17 05:45 Anisocytosis (manual) 1+ 02/25/17 05:45 Microcytosis (manual) 1+ 02/23/17 17:45 Tear Drop Cells Slight 02/23/17 17:45 Ovalocytes Slight 02/23/17 17:45 PT 9.9 Seconds (9.9-11.8) 02/23/17 17:45 INR 0.92 (0.93-1.08) L 02/23/17 17:45 APTT 23.9 Seconds (23.7-30.8) 02/23/17 17:45 Sodium 140 mmol/L (132-148) 02/26/17 06:30 Potassium 3.6 mmol/L (3.6-5.0) 02/26/17 06:30 Chloride 103 mmol/L (98-107) 02/26/17 06:30 Carbon Dioxide 27 mmol/L (21-33) 02/26/17 06:30 Anion Gap 14 (10-20) 02/26/17 06:30 BUN 17 mg/dL (7-21) 02/26/17 06:30 Creatinine 0.4 mg/dL (0.5-1.4) L 02/26/17 06:30 Est GFR ( Amer) > 60 02/26/17 06:30 Est GFR (Non-Af Amer) > 60 02/26/17 06:30 POC Glucose (mg/dL) 125 mg/dL (65-110) H 02/26/17 11:14 Random Glucose 122 mg/dL (70-110) H 02/26/17 06:30 Calcium 8.6 mg/dL (8.4-10.5) 02/26/17 06:30 Iron 26 ug/dL (45-180) L 02/23/17 17:45 TIBC 447 ug/dL (265-497) 02/23/17 17:45 % Saturation 6 % (20-55) L 02/23/17 17:45 Total Bilirubin 0.6 mg/dL (0.2-1.3) 02/26/17 06:30 AST 27 U/L (15-39) 02/26/17 06:30 ALT 52 U/L (7-56) 02/26/17 06:30 Alkaline Phosphatase 48 U/L (38-133) 02/26/17 06:30 Lactate Dehydrogenase 462 U/L (333-699) 02/25/17 05:45 Total Creatine Kinase < 20 U/L (35-230) L 02/25/17 05:45 Troponin I 0.02 ng/mL D 02/25/17 05:45 NT-Pro-B Natriuret Pep 25.6 pg/mL (0-450) 02/23/17 17:45 Total Protein 6.7 g/dL (5.8-8.3) 02/26/17 06:30 Albumin 3.8 g/dL (3.0-4.8) 02/26/17 06:30 Globulin 2.9 gm/dL 02/26/17 06:30 Albumin/Globulin Ratio 1.3 (1.1-1.8) 02/26/17 06:30 Procalcitonin < 0.05 NG/ML (0.19-0.49) L 02/23/17 17:45 Urine Color Yellow (YELLOW) 02/23/17 18:30 Urine Appearance Clear (CLEAR) 02/23/17 18:30 Urine pH 6.0 (4.7-8.0) 02/23/17 18:30 Ur Specific Bigelow 1.010 (1.005-1.035) 02/23/17 18:30 Urine Protein Negative mg/dL (<30 mg/dL) 02/23/17 18:30 Urine Glucose (UA) >=1000 mg/dL (NEGATIVE) 02/23/17 18:30 Urine Ketones Trace mg/dL (NEGATIVE) H 02/23/17 18:30 Urine Blood Negative (NEGATIVE) 02/23/17 18:30 Urine Nitrate Negative (NEGATIVE) 02/23/17 18:30 Urine Bilirubin Negative (NEGATIVE) 02/23/17 18:30 Urine Urobilinogen 0.2 E.U./dL (<1 E.U./dL) 02/23/17 18:30 Ur Leukocyte Esterase Negative Jesus/uL (NEGATIVE) 02/23/17 18:30 - Hospital Course Hospital Course: 36 yo F w/ extensive pMHx asthma, COPD, DM type 2, hypertension, hypothyroid, DVT, PE s/p IVC filter, endocarditis, spinal cord modulator infection and morbidly obesity presents with one day hx of worsening productive cough and SOB. Initial temperature 100.1, wbc 17. In ED recieved ASA 81, duonebs, IV steroids, and mg so4. On home O2 at 4L. CT angio negative. troponins 0.03, UA w/ trace ketones. Admitted for COPD exacerbation and under telemetry care initially. On floor, Pt continued with home medication, and given duonebs, pulmicort, brovana, robitussin, xopenex, and prednisone. Dr. Vera, ID, was consulted, who. Left lower rib pain was treated with dilaudid prn. Xarleto for DVT hx, and cardizem for HTN. INsulin, fingersticks ACHS and amryl for DM. Cefepime started by ID due to hx of non-healing skin ulcers, and CXR negative, and Procal under 0.05, with negative bcx throughout hospital stay. B/L LE dopplers , ordered for leg swelling negative. Pt is discharged in stable condition with the following instructions: You are discharged. Please see your primary care physician within one week of discharge. Please resume your home medications plus new medication of keflex 500mg by mouth twice daily for 4 days. Please return to the emergency department for worsening of symptoms Discharge Exam - Head Exam Head Exam: ATRAUMATIC, NORMOCEPHALIC - Eye Exam Eye Exam: EOMI, Normal appearance Pupil Exam: NORMAL ACCOMODATION, PERRL - Respiratory Exam Respiratory Exam: Wheezes, NORMAL BREATHING PATTERN Additional comments: slight R sided wheeze - Cardiovascular Exam Cardiovascular Exam: Tachycardia, +S1, +S2 - GI/Abdominal Exam GI & Abdominal Exam: Soft. absent: Tenderness - Exam External exam: Erythema. absent: Swelling (lessening erythema of L LE chronic wound and lessening erythema of medial R UE chronic wound) - Extremities Exam Extremities exam: normal capillary refill, pedal pulses present - Neurological Exam Neurological exam: Alert, Oriented x3 - Skin Skin Exam: Normal Color, Warm Discharge Plan - Discharge Medications Prescriptions: Cephalexin [Keflex] 500 mg PO Q12 #8 capsule - Follow Up Plan Condition: STABLE Disposition: HOME/ ROUTINE Instructions: COPD (Chronic Obstructive Pulmonary Disease) (DC) Additional Instructions: You are discharged. Please see your primary care physician within one week of discharge. Please resume your home medications plus new medication of keflex 500mg by mouth twice daily for 4 days. Please return to the emergency department for worsening of symptoms Referrals: Sharif GLOVER,Gorge Winters MD [Primary Care Provider] - <Paul Alvares - Last Filed: 02/27/17 07:23> Provider - Provider Date of Admission: 02/23/17 20:02 Attending physician: Paul Alvares MD Primary care physician: Gorge Olguin MD Time Spent in preparation of Discharge (in minutes): 35 Hospital Course - Lab Results Lab Results: Most Recent Lab Values WBC 15.1 10^3/ul (4.5-11.0) H 02/26/17 06:30 RBC 4.40 10^6/uL (3.5-6.1) 02/26/17 06:30 Hgb 9.9 gm/dL (12.0-16.0) L 02/26/17 06:30 Hct 33.8 % (36.0-48.0) L 02/26/17 06:30 MCV 76.8 fL (80.0-105.0) L 02/26/17 06:30 MCH 22.5 pg (25.0-35.0) L 02/26/17 06:30 MCHC 29.3 g/dl (31.0-37.0) L 02/26/17 06:30 RDW 18.7 % (11.5-14.5) H 02/26/17 06:30 Plt Count 355 10^3/uL (120.0-450.0) 02/26/17 06:30 MPV 9.9 fl (7.0-11.0) 02/26/17 06:30 Gran % 73.2 % (50.0-68.0) H 02/26/17 06:30 Lymph % (Auto) 13.0 % (22.0-35.0) L 02/26/17 06:30 Major % (Auto) 10.9 % (1.0-6.0) H 02/26/17 06:30 Eos % (Auto) 2.2 % (1.5-5.0) 02/26/17 06:30 Baso % (Auto) 0.7 % (0.0-3.0) 02/26/17 06:30 Gran # 11.08 (1.4-6.5) H 02/26/17 06:30 Lymph # 2.0 (1.2-3.4) 02/26/17 06:30 Major # 1.6 (0.1-0.6) H 02/26/17 06:30 Eos # 0.3 (0.0-0.7) 02/26/17 06:30 Baso # 0.10 K/mm3 (0.0-2.0) 02/26/17 06:30 Neutrophils % (Manual) 73 % (50.0-70.0) H 02/25/17 05:45 Band Neutrophils % 4 % (0-2) H 02/25/17 05:45 Lymphocytes % (Manual) 5 % (22.0-35.0) L 02/25/17 05:45 Monocytes % (Manual) 11 % (1.0-6.0) H 02/25/17 05:45 Eosinophils % (Manual) 1 % (0.0-3.0) 02/23/17 17:45 Basophils % (Manual) 1 % (0.0-1.0) 02/25/17 05:45 Metamyelocytes % 1 % 02/25/17 05:45 Myelocytes % 5 % 02/25/17 05:45 Nucleated RBC % 1 % 02/25/17 05:45 Platelet Evaluation Normal (NORMAL) 02/25/17 05:45 Polychromasia Slight 02/23/17 17:45 Hypochromasia 1+ 02/23/17 17:45 Poikilocytosis (manual Slight 02/25/17 05:45 Anisocytosis (manual) 1+ 02/25/17 05:45 Microcytosis (manual) 1+ 02/23/17 17:45 Tear Drop Cells Slight 02/23/17 17:45 Ovalocytes Slight 02/23/17 17:45 PT 9.9 Seconds (9.9-11.8) 02/23/17 17:45 INR 0.92 (0.93-1.08) L 02/23/17 17:45 APTT 23.9 Seconds (23.7-30.8) 02/23/17 17:45 Sodium 140 mmol/L (132-148) 02/26/17 06:30 Potassium 3.6 mmol/L (3.6-5.0) 02/26/17 06:30 Chloride 103 mmol/L (98-107) 02/26/17 06:30 Carbon Dioxide 27 mmol/L (21-33) 02/26/17 06:30 Anion Gap 14 (10-20) 02/26/17 06:30 BUN 17 mg/dL (7-21) 02/26/17 06:30 Creatinine 0.4 mg/dL (0.5-1.4) L 02/26/17 06:30 Est GFR ( Amer) > 60 02/26/17 06:30 Est GFR (Non-Af Amer) > 60 02/26/17 06:30 POC Glucose (mg/dL) 125 mg/dL (65-110) H 02/26/17 11:14 Random Glucose 122 mg/dL (70-110) H 02/26/17 06:30 Calcium 8.6 mg/dL (8.4-10.5) 02/26/17 06:30 Iron 26 ug/dL (45-180) L 02/23/17 17:45 TIBC 447 ug/dL (265-497) 02/23/17 17:45 % Saturation 6 % (20-55) L 02/23/17 17:45 Total Bilirubin 0.6 mg/dL (0.2-1.3) 02/26/17 06:30 AST 27 U/L (15-39) 02/26/17 06:30 ALT 52 U/L (7-56) 02/26/17 06:30 Alkaline Phosphatase 48 U/L (38-133) 02/26/17 06:30 Lactate Dehydrogenase 462 U/L (333-699) 02/25/17 05:45 Total Creatine Kinase < 20 U/L (35-230) L 02/25/17 05:45 Troponin I 0.02 ng/mL D 02/25/17 05:45 NT-Pro-B Natriuret Pep 25.6 pg/mL (0-450) 02/23/17 17:45 Total Protein 6.7 g/dL (5.8-8.3) 02/26/17 06:30 Albumin 3.8 g/dL (3.0-4.8) 02/26/17 06:30 Globulin 2.9 gm/dL 02/26/17 06:30 Albumin/Globulin Ratio 1.3 (1.1-1.8) 02/26/17 06:30 Procalcitonin < 0.05 NG/ML (0.19-0.49) L 02/23/17 17:45 Urine Color Yellow (YELLOW) 02/23/17 18:30 Urine Appearance Clear (CLEAR) 02/23/17 18:30 Urine pH 6.0 (4.7-8.0) 02/23/17 18:30 Ur Specific Bigelow 1.010 (1.005-1.035) 02/23/17 18:30 Urine Protein Negative mg/dL (<30 mg/dL) 02/23/17 18:30 Urine Glucose (UA) >=1000 mg/dL (NEGATIVE) 02/23/17 18:30 Urine Ketones Trace mg/dL (NEGATIVE) H 02/23/17 18:30 Urine Blood Negative (NEGATIVE) 02/23/17 18:30 Urine Nitrate Negative (NEGATIVE) 02/23/17 18:30 Urine Bilirubin Negative (NEGATIVE) 02/23/17 18:30 Urine Urobilinogen 0.2 E.U./dL (<1 E.U./dL) 02/23/17 18:30 Ur Leukocyte Esterase Negative Jesus/uL (NEGATIVE) 02/23/17 18:30 Attending/Attestation - Attestation I have personally seen and examined this patient.: Yes I have fully participated in the care of the patient.: Yes I have reviewed all pertinent clinical information, including history, physical exam and plan: Yes Notes (Text): 02/26/17 36 year old female with extensive past medical history who presented with complaint of cough and shortness of breath likely secondary to acute bronchitis. This improved with duonebs and antibiotics. She is also on chronic steroids. CT chest was negative. She was also found to have SIRS (tachycardia, low grade temp, and leukocytosis) on admission. She has multiple chronic non-healing ulcers on her extremities on was on iv antibiotics per ID while in hospital. Cultures were negative to date. She is discharged on po keflex. She is on anticoagulation for history of DVT/PE. She is discharged home today to follow up with her pmd. Follow up with pain management for chronic pain. Follow up with principle software engineer for chronic anemia and endocrinology for diabetes. Paul Alvares MD Hospitalist.
--- NOTE | 2017-02-26 15:29 | CP.PCM.PN ---
Subjective - Date & Time of Evaluation Date of Evaluation: 02/26/17 Time of Evaluation: 14:15 - Subjective Subjective: Infectious Disease Follow Up: February 26, 2017 36 yo female with multiple hospitalizations to both [facility] and [place] over the past few years who presents with worsening shortness of breath and cough for one week. Recently completed several courses for possible endocarditis. The patient went to see Dr. Menendez of Pain Management and became short of breath on the way home. The patient had a fever of 102 two days ago. Please note that the patient's did have a severe septic episode in January 2016 that led to intubation and ventilation with severe hypotension. She was not last intubated back in 2003... the last episode of intubation was one year ago. Teflaro started for treatment. Cultures pending. Patient with multiple chronic issues. Cultures so far are negative. No new issues. Objective - Vital Signs/Intake and Output Vital Signs (last 24 hours): Temp Pulse Resp BP Pulse Ox 97.4 F L 103 H 20 137/85 96 02/26/17 08:00 02/26/17 10:28 02/26/17 08:00 02/26/17 10:28 02/26/17 08:00 Intake and Output: 02/26/17 02/26/17 06:59 18:59 Intake Total 240 840 Output Total 0 2 Balance 240 838 - Medications Medications: Current Medications Acetaminophen (Tylenol 325mg Tab) 650 mg PO Q6 PRN PRN Reason: Fever >100.4 F Albuterol/Ipratropium (Duoneb 3 Mg/0.5 Mg (3 Ml) Ud) 3 ml [facility] [id number] [facility] Last Admin: 02/26/17 13:34 Dose: 3 ml Arformoterol Tartrate (Brovana) 15 mcg [facility] [id number] [facility] Last Admin: 02/26/17 07:27 Dose: 15 mcg Budesonide (Pulmicort Respules) 0.25 mg [facility] [id number] [facility] Last Admin: 02/26/17 07:27 Dose: 0.25 mg Cyclobenzaprine HCl (Flexeril) 10 mg PO Q12 [facility] Last Admin: 02/26/17 10:29 Dose: 10 mg Diazepam (Valium) 5 mg PO TID [facility] PRN Reason: Protocol Last Admin: 02/26/17 13:52 Dose: 5 mg Diltiazem HCl (Cardizem) 30 mg PO BID [facility] Last Admin: 02/26/17 10:28 Dose: 30 mg Duloxetine HCl (Cymbalta) 60 mg PO DAILY [facility] Last Admin: 02/26/17 10:28 Dose: 60 mg Gabapentin (Neurontin) 300 mg PO TID [facility] PRN Reason: Protocol Last Admin: 02/26/17 13:52 Dose: 300 mg Glimepiride (Amaryl) 4 mg PO 0800,1700 [facility] Last Admin: 02/26/17 08:45 Dose: 4 mg Guaifenesin (Robitussin) 100 mg PO Q4H PRN PRN Reason: Cough Hydromorphone HCl (Dilaudid) 1 mg IVP Q6H PRN PRN Reason: Pain, moderate (4-7) Last Admin: 02/26/17 10:49 Dose: 1 mg Ceftaroline Fosamil 600 mg/ (Sodium Chloride) 100 mls @ 100 mls/hr IVPB Q12 [facility] PRN Reason: Protocol Last Admin: 02/26/17 10:30 Dose: 100 mls/hr Insulin Human Regular (Humulin R Med) 0 units SC ACHS [facility] PRN Reason: Protocol Last Admin: 02/26/17 12:17 Dose: Not Given Levalbuterol HCl (Xopenex) 0.63 mg IH TIDRESP [facility] Last Admin: 02/26/17 07:27 Dose: 0.63 mg Levothyroxine Sodium (Synthroid) 25 mcg PO ACB [facility] Last Admin: 02/26/17 08:45 Dose: 25 mcg Meclizine HCl (Antivert) 25 mg PO Q8 PRN PRN Reason: Dizziness Montelukast Sodium (Singulair) 10 mg PO HS [facility] Last Admin: 02/25/17 21:00 Dose: 10 mg Nystatin (Nystop Topical Powder) 0 gm TOP DAILY [facility] Last Admin: 02/26/17 10:32 Dose: 1 applic Pantoprazole Sodium (Protonix Ec Tab) 40 mg PO ACB [facility] Last Admin: 02/26/17 08:45 Dose: 40 mg Prednisone (Prednisone Tab) 60 mg PO DAILY [facility] Last Admin: 02/26/17 10:27 Dose: 60 mg Rivaroxaban (Xarelto) 20 mg PO DAILY [facility] PRN Reason: Protocol Last Admin: 02/26/17 10:27 Dose: 20 mg Roflumilast (Daliresp) 500 mcg PO DAILY [facility] Last Admin: 02/26/17 10:27 Dose: 500 mcg Ropinirole HCl (Requip) 1.5 mg PO BID [facility] Last Admin: 02/26/17 10:26 Dose: 1.5 mg Valacyclovir HCl (Valtrex) 500 mg PO BID [facility] PRN Reason: Protocol Last Admin: 02/26/17 10:28 Dose: 500 mg - Labs Labs: 02/26/17 06:30 02/26/17 06:30 PT 9.9 Seconds (9.9-11.8) 02/23/17 17:45 INR 0.92 (0.93-1.08) L 02/23/17 17:45 APTT 23.9 Seconds (23.7-30.8) 02/23/17 17:45 - Constitutional Appears: Non-toxic, No Acute Distress, Chronically Ill - Head Exam Head Exam: ATRAUMATIC, NORMOCEPHALIC - Eye Exam Eye Exam: EOMI, PERRL Pupil Exam: NORMAL ACCOMODATION, PERRL - ENT Exam ENT Exam: Mucous Membranes Moist, Normal External Ear Exam, TM's Normal Bilaterally - Neck Exam Neck Exam: Full ROM, Normal Inspection - Respiratory Exam Respiratory Exam: Clear to Ausculation Bilateral, NORMAL BREATHING PATTERN. absent: Rales, Rhonchi, Wheezes - Cardiovascular Exam Cardiovascular Exam: REGULAR RHYTHM, RRR, +S1, +S2 - GI/Abdominal Exam GI & Abdominal Exam: Soft, Tenderness, Normal Bowel Sounds. absent: Distended - Extremities Exam Extremities Exam: Full ROM, Normal Inspection - Neurological Exam Neurological Exam: Alert, Awake, CN II-XII Intact, Oriented x3 - Psychiatric Exam Psychiatric exam: Normal Affect, Normal Mood - Skin Additional comments: multiple scab on legs and arms. Multiple abrasions and scabs. Recent removal of PICC line from right upper arm. Right 4th and left 3rd toe nails absent. Left lower leg erythema with 2 non draining lesion, multiple non healing ulcers on right upper extremity. blood around the big toes bilaterally. Assessment and Plan - Assessment and Plan (Free Text) Assessment: 36 yo female with shortness of breath and non-productive cough with multiple chronic medical issues. The patient was found to have leukocytosis and low grade fever up to 100.1 F. Chest X-ray did not exhibit findings for a pneumonia. Started on Teflaro for now for antibiotic coverage. Multiple chronic wounds that have been slow to heal overall. Supportive care. Patient has multiple medical issues including obesity, hypothyroidism, hypertension, chronic steroid use. Awaiting culture results - negative so far. Possible discharge with Keflex back to home. Thank you for allowing me to participate in the care of the patient, we will follow with you.
[2017-02-26 17:21] VITALS: BP 132/82
[2017-02-26 17:49] VITALS: PULSE 109; TEMP 97.9; O2SAT 98
== END 2017-02-26 18:55 | disposition home or self-care (01) | DRG 191 ==
LOC: ED 17:35 → ERH 20:02 → 2RSO 02-24 00:47 → 5RSO 02-25 20:09
PROVIDERS: ADMIT Internal Medicine; ATTEND Internal Medicine
DX: J44.1 Chronic obstructive pulmonary disease with (acute) exacerbation (principal); I38 Endocarditis, valve unspecified; R65.10 Systemic inflammatory response syndrome (SIRS) of non-infectious origin without acute organ dysfunction; R78.81 Bacteremia; J45.901 Unspecified asthma with (acute) exacerbation; E11.621 Type 2 diabetes mellitus with foot ulcer; Z68.41 Body mass index [BMI] 40.0-44.9, adult; J44.0 Chronic obstructive pulmonary disease with (acute) lower respiratory infection; G62.9 Polyneuropathy, unspecified; Z99.81 Dependence on supplemental oxygen; E11.43 Type 2 diabetes mellitus with diabetic autonomic (poly)neuropathy; K31.84 Gastroparesis; E66.01 Morbid (severe) obesity due to excess calories; I10 Essential (primary) hypertension; J20.9 Acute bronchitis, unspecified; H40.9 Unspecified glaucoma; E03.9 Hypothyroidism, unspecified; G25.81 Restless legs syndrome; G47.33 Obstructive sleep apnea (adult) (pediatric); G89.4 Chronic pain syndrome; H91.90 Unspecified hearing loss, unspecified ear; J32.9 Chronic sinusitis, unspecified; K21.9 Gastro-esophageal reflux disease without esophagitis; K22.4 Dyskinesia of esophagus; M81.0 Age-related osteoporosis without current pathological fracture; Z79.01 Long term (current) use of anticoagulants; Z79.52 Long term (current) use of systemic steroids; Z79.891 Long term (current) use of opiate analgesic; Z82.49 Family history of ischemic heart disease and other diseases of the circulatory system; Z86.711 Personal history of pulmonary embolism; Z86.718 Personal history of other venous thrombosis and embolism; Z87.440 Personal history of urinary (tract) infections; Z87.891 Personal history of nicotine dependence; Z90.49 Acquired absence of other specified parts of digestive tract; Z90.710 Acquired absence of both cervix and uterus; Z98.42 Cataract extraction status, left eye; Z98.41 Cataract extraction status, right eye; Z99.3 Dependence on wheelchair; G43.909 Migraine, unspecified, not intractable, without status migrainosus; M19.90 Unspecified osteoarthritis, unspecified site; Z87.19 Personal history of other diseases of the digestive system; Z86.19 Personal history of other infectious and parasitic diseases; R32 Unspecified urinary incontinence; Z88.6 Allergy status to analgesic agent; Z88.1 Allergy status to other antibiotic agents; Z88.8 Allergy status to other drugs, medicaments and biological substances; Z87.892 Personal history of anaphylaxis; R40.2412 Glasgow coma scale score 13-15, at arrival to emergency department; B02.9 Zoster without complications; Z87.311 Personal history of (healed) other pathological fracture; R26.81 Unsteadiness on feet; D72.829 Elevated white blood cell count, unspecified